=== PATIENT | female | born 1975 | race Caucasian/White ===

== ENCOUNTER 2016-06-05 22:44 | Inpatient (IN) | payer OTHER ==
--- NOTE | ~2016-06-05 | CN ---
Consultation Report [facility] [address] [place]. [address] NAME: RENETTA MANUEL : 71 STATUS : ADM IN [facility]#: [id number] AGE: 41 ADM/REG DATE : 06/06/16 MR#: [id number] REPORT SERV DATE: 06/17/16 DICTATED BY: JB RUBIN DATE: 06/17/16 REPORT STATUS : Draft TRANSCRIBED BY: MODL DATE: 06/17/16 INFECTIONS DISEASE CONSULT DATE OF CONSULTATION: 06/17/2016 REASON FOR CONSULTATION: Neutropenic fever. HISTORY OF PRESENT ILLNESS: This is a 41-year-old female who was admitted to the hospital on 06/06 after presenting to the emergency department complaining of fevers. She had undergone extraction of 3 teeth back on 05/20 and developed postoperative pain and a dry socket condition. Then, she developed fevers. On initial assessment, she was found to be pancytopenic and had a fever up to 103. She underwent CT scan of the face, neck, chest, abdomen, and pelvis without any acute findings. 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 Her fevers resolved. She underwent standard induction chemotherapy. Yesterday, she had a low-grade fever of 100.3, and then since then has had higher fevers, up to 102.6 today. Yesterday, vancomycin was added to the cefepime. The patient also has completed, as part of her regimen, Decadron which ended a few days ago. The patient's chief complaints include aching all over, increasing pain in her left upper anterior maxilla. She also complains of some right flank pain and right lower quadrant discomfort and a fairly persistent diarrhea for some days now. Denies any cough. No significant headache. PAST MEDICAL HISTORY: The past medical history prior to this is notable for seizure disorder, severe dental caries, surgery for ovarian mass torsion with an oophorectomy and hysterectomy apparently complicated by MRSA wound infection. There is also a history of cholecystectomy. ALLERGIES: ERYTHROMYCIN. MEDICATIONS: Present medications in addition to the antibiotics mentioned include Benadryl, Depakote, iron Neurontin, Habitrol, nystatin oral suspension, Protonix, and MiraLAX. SOCIAL HISTORY: A long-term smoker but not a lot, nondrinker. Has lived in the [facility] all her life. She has pet dogs at home. No known contact with anybody with active tuberculosis. REVIEW OF SYSTEMS: As outlined above. In addition, she notes some irritation in her oral cavity and when swallowing, but it is not severe. No hemoptysis. No genitourinary symptoms. PHYSICAL EXAMINATION: VITAL SIGNS: Fevers as noted. Pulse 117, blood pressure 119/63, and respiratory rate 16. Consultation Report [address] [place]. [address] NAME: RENETTA MANUEL : 71 STATUS : ADM IN PAT#: [id number] AGE: 41 ADM/REG DATE : 06/06/16 MR#: [id number] REPORT SERV DATE: 06/17/16 DICTATED BY: JB RUBIN DATE: 06/17/16 REPORT STATUS : Draft TRANSCRIBED BY: RYAN DATE: 06/17/16 She weighs 99 kg. GENERAL: She is alert, pleasant, and in no acute distress. HEENT: Head and neck exam, extraocular movements intact. Conjunctivae normal. The oral cavity is clear, there is no thrush. She has very poor dentition and just a few remaining teeth. There is an area of mild soft tissue swelling and erythema above the diseased left upper incisors which is tender but not fluctuant. NECK: Supple. No significant adenopathy. LUNGS: Clear to auscultation. CARDIAC: Regular rate and rhythm. Normal S1 and S2 without murmur, gallop, or rub. ABDOMEN: Active bowel sounds and is soft. She is tender to palpation in the right lower quadrant; this is mild, no rebound. BACK: Unremarkable. No CVA tenderness. EXTREMITIES: A PICC line in place which was placed 06/07, covered by dressing. No significant edema. SKIN: Without rash. LABORATORY STUDIES: White blood cell count 0.1, hemoglobin 6.8, platelet count 9000, creatinine 0.66, and lactate 0.9. Liver function tests on admission were normal. The admission rapid strep test and urinalysis were negative. One of three admission blood cultures grew a viridans strep. Repeat blood cultures yesterday are negative to date. IMAGING STUDIES: As noted. No imaging studies since 06/06. IMPRESSION: Neutropenic fever in a patient with AML, status post induction chemotherapy. I think there is some concern here for the possibility of a smoldering odontogenic infection associated with her dental caries, particularly in the area of the upper left incisors. I do not appreciate signs of an abscess on exam, although she is neutropenic. The patient also has very persistent diarrhea, and we need to consider the possibility of C. diff. In addition, she has this mild tenderness in her right lower quadrant and her right flank, among the many possibilities, would be neutropenic enterocolitis. She did have a CT scan of the abdomen and pelvis on admission. PLAN: 1. We will change the cefepime to Zosyn. 2. We will continue vancomycin. 3. We will check a C. diff. 4. Check a chest x-ray. 5. If no improvement, I would repeat a CT scan of the abdomen and pelvis and ask Oral Surgery to reassess also. CHARLES/RYAN Jb Rubin, Consultation Report [address] [address] NAME: RENETTA MANUEL : 71 STATUS : ADM IN [facility]#: [id number] AGE: 41 ADM/REG DATE : 06/06/16 MR#: [id number] REPORT SERV DATE: 06/17/16 DICTATED BY: JB RUBIN DATE: 06/17/16 REPORT STATUS : Draft TRANSCRIBED BY: RYAN DATE: 06/17/16 Gini / [id number]
--- NOTE | ~2016-06-05 | DS ---
Discharge Summary [facility] [address] [place]. [address] NAME: RENETTA BAI : 71 STATUS : DIS IN PAT#: [id number] AGE: 41 ADM/REG DATE : 06/06/16 MR#: [id number] REPORT SERV DATE: 08/30/16 DICTATED BY: ROSY BULLOCK MARK SANDERS DATE: 08/29/16 REPORT STATUS : Draft TRANSCRIBED BY: RYAN DATE: 08/29/16 ADMISSION DATE: 06/06/2016 DISCHARGE DATE: 08/07/2016 HOSPITAL COURSE: Ms Bai is a 41-year-old white female with a history of seizure disorder who was admitted on 06/06/2016 with fevers to 103. She had reported pain in her neck, jaw, and teeth. This was exacerbated by swallowing. She had teeth extractions on 05/20/2016 and had complained of an infected dry socket. She had been placed on antibiotics by her dentist. She also reported night sweats for one month prior to this. In the emergency room, her white count was 2800 with an ANC of 0. Her hemoglobin was 8.9 g, and platelets were 28,000. Her B12 was low at 94. Thorough review of her peripheral smear was concerning for acute leukemia. She had a bone marrow biopsy which did confirm this. She had induction chemotherapy with Alison-C, idarubicin and cladribine. Her day 14 bone marrow showed persistent disease and she was reinduced. A followup bone marrow prior to discharge was unclear if she had residual disease or not. During her hospital stay, it was complicated by persistent fevers and diarrhea. Additionally, she was noted to have a rash on her arm, and a biopsy revealed Rosa. She was treated with amphotericin initially and subsequently discharged on Diflucan. Prior to discharge as her counts began to recover, her fevers resolved. She was discharged home with home health for physical therapy and scheduled for twice weekly labs in my office and followup in approximately two to three weeks. We did discuss that it was unclear if her leukemia was persistent or not and that we would follow her blood work in order to help us better determine this. We also discussed the need for additional chemotherapy at a subsequent date. For additional information, please see her initial history and physical as well as other consultation reports. WAQAS/RYAN Emiliano Bullock IV, M.D. / [id number] CC: Emiliano Bullock IV, M.D.
--- NOTE | ~2016-06-05 | HP ---
History And Physical [place] [id number] [facility] [place]. [address] NAME: RENETTA BAI : 71 STATUS : ADM IN [facility]#: [id number] AGE: 41 ADM/REG DATE : 06/06/16 MR#: [id number] REPORT SERV DATE: 06/06/16 DICTATED BY: NOELLE CHARLES DATE: 06/06/16 REPORT STATUS : Draft TRANSCRIBED BY: MODVerona DATE: 06/06/16 DATE OF ADMISSION: 06/06/2016 POINT OF ENTRY: [facility] Emergency Department. PRIMARY CARE PHYSICIAN: [facility]. CHIEF COMPLAINT: Fevers. HISTORY OF PRESENT ILLNESS: Ms Bai is a 41-year-old female with history of seizure disorder, who presents to the emergency room today with a one-day history of fevers. The patient states that she was recently on some antibiotics for some dental caries. She underwent tooth extraction on 05/20/2016 of three teeth of the left mandibular region, since then, she has had troubles with an infected dry socket. Reportedly, the dentist has done some procedures afterwards to address the post-extraction difficulties. The patient was in our emergency department yesterday for feeling sick as well as pain. Workup at that time was reportedly unremarkable. She returned home and states that she started to develop fevers around midday on Friday as high as 103 degrees Fahrenheit, as well as pain and abnormal smell in her sinuses with associated left-sided neck and jaw pain. The patient also states some night sweats for the past month, but denies any recent weight loss or weight gain, troubles with chest pain, palpitations, shortness of breath, cough, sputum production, abdominal pain, vomiting, diarrhea, constipation, dysuria, melena, hematochezia, hemoptysis, or hematemesis. Does report some nausea associated with the abnormal olfactory sensation and pain in her sinus region. Comprehensive review of systems otherwise negative unless listed in history of present illness. Initial evaluation in the emergency department was notable for a temperature initially of 100.7, on recheck it was 103 degrees Fahrenheit. Labs are notable for pancytopenia with absolute neutropenia. Extensive search for source of infection was unremarkable with negative urinalysis, strep, flu swab, chest x-ray as well as CT scan of the chest, face and neck. She was subsequently admitted to the Hospitalist Service for further evaluation and management. The patient denies any recent new medications other than the Augmentin in early May. Denies any troubles with hematologic abnormalities in the past. PRESENT MEDICAL HISTORY: 1. Seizure disorder. 2. Dental caries. 3. Remote history of ovarian torsion status post oophorectomy. 4. Active tobacco abuse. SURGICAL HISTORY: History And Physical [address] [address] NAME: RENETTA BAI : 71 STATUS : ADM IN [facility]#: [id number] AGE: 41 ADM/REG DATE : 06/06/16 MR#: [id number] REPORT SERV DATE: 06/06/16 DICTATED BY: NOELLE CHARLES DATE: 06/06/16 REPORT STATUS : Draft TRANSCRIBED BY: RYAN DATE: 06/06/16 1. Cholecystectomy. 2. Partial hysterectomy. 3. Single oophorectomy. ALLERGIES: ERYTHROMYCIN. HOME MEDICATIONS: 1. Diphenhydramine 25 mg q.h.s. 2. Depakote 500 mg b.i.d. 3. Gabapentin 300 mg b.i.d. 4. Zantac 75 mg b.i.d. p.r.n. SOCIAL HISTORY: She does smoke a few cigarettes a day. Denies any alcohol. Denies any illicits. OCCUPATION: She stays home and takes care of her grand kids. FAMILY MEDICAL HISTORY: Mother with coronary artery disease. Father is healthy. Siblings with diabetes. Does report extended family history of cancer, but the details are unknown. LABS AND IMAGIN. White count is 2.8, hemoglobin is 8.9, hematocrit is 25.1, and platelet count is 28. INR is 1.1. ANC is 0, on the preliminary differential it is 99% lymphocytes with a normal absolute lymphocyte count, but approximately 50% of lymphocytes are abnormal appearing consistent with immature forms and/or blasts, this is yet to be confirmed by pathology. 2. Sodium is 140, potassium 3.6, chloride 107, carbon dioxide 23, BUN 7, creatinine 0.77, glucose is 95, calcium 7.8, protein 7.0, albumin is 3.2, bilirubin is 0.3, AST is 13, ALT is 14, alkaline phosphatase 68. 3. Troponin less than 0.02. 4. Lactic acid 0.9. 5. Urinalysis: Specific gravity is 1.012. No evidence of any infection. Her urine drug screen is positive for opiates and marijuana. 6. Chest x-ray per my review shows no acute cardiopulmonary abnormality. 7. CT scan of the face and neck with IV contrast showed some borderline enlarged lymph nodes, but otherwise no evidence of any sinusitis, abscess, or odontogenic infection. 8. CT scan of the chest with IV contrast shows no acute pulmonary abnormality, no evidence of any lymphadenopathy. Does show mildly enlarged 10 mm common bile duct status post cholecystectomy. PHYSICAL EXAMINATION: VITAL SIGNS: Temperature is 100.7 degrees Fahrenheit, pulse is 115, respirations 22, saturating 98% on room air, and blood pressure 130/89. On recheck, T-max was 103 degrees Fahrenheit. Most recent vital signs shows a temperature of 101.1 degrees Fahrenheit with a pulse of 118, blood pressure 113/67. GENERAL: The patient is awake, alert, and in no acute distress. Resting comfortably. She is a well-developed, well-nourished, female. History And Physical [address] [address] NAME: RENETTA BAI : 71 STATUS : ADM IN [facility]#: [id number] AGE: 41 ADM/REG DATE : 06/06/16 MR#: [id number] REPORT SERV DATE: 06/06/16 DICTATED BY: NOELLE CHARLES DATE: 06/06/16 REPORT STATUS : Draft TRANSCRIBED BY: RYAN DATE: 06/06/16 HEENT: Atraumatic and normocephalic. Moist mucous membranes. Pupils are equal, round, reactive to light and accommodation. Extraocular eye movements intact. The patient has very poor oral dentition and is actually missing most of her teeth. She is tender to palpation over the left greater than right maxillary sinus. NECK: No jugular venous distention. No carotid bruits. There is no evidence of any obvious swelling or lymphadenopathy; however, is tender on palpation left greater than right lateral neck. CARDIAC: Tachycardic rate, regular rhythm. No murmurs, rubs, or gallops. Normal S1, S2. LUNGS: Clear to auscultation bilaterally. No wheezes, rhonchi, or crackles. ABDOMEN: Soft, nontender, and nondistended. Good bowel sounds. No rebound, guarding, or rigidity. I did not appreciate any hepatosplenomegaly on palpation. SKIN: Warm and dry. PSYCH: Affect appropriate. NEURO: Alert and oriented x3. Cranial nerves 2 through 12 grossly intact. Speech is normal. Gait not assessed. ASSESSMENT/PLAN: Ms Bai is a 41-year-old female, who presents with a one-day history of high-grade fevers as well as facial and neck pain, and found to have evidence of systemic inflammatory response as well as neutropenic fever with a markedly abnormal CBC. PROBLEM LIST: 1. Systemic inflammatory response. 2. Neutropenic fever. 3. 4. Pancytopenia. 5. Abnormal lymphocytes on peripheral smear. 6. Facial and neck pain. 7. History of seizure disorder. PLAN: 1. Systemic inflammatory response. Source of fevers is unclear at this time. Given her markedly abnormal CBC this may be malignancy related. Search for infectious etiology has thus far been unremarkable. We will complete with following up blood cultures, checking a procalcitonin as well as CT scan of the abdomen and pelvis. Given evidence of neutropenic fever we will empirically place the patient on broad-spectrum IV antibiotics. 2. Neutropenic fever. We will place the patient on neutropenic precautions. Place the patient on IV vancomycin and cefepime. Follow up blood cultures. Also checking a CT scan of the abdomen and pelvis for further search for source of fever. 3. Pancytopenia with abnormal peripheral smear, unclear etiology at this time. She denies any history of HIV, liver disease, alcohol abuse. The only recent new medication was some Augmentin a few weeks ago. We will check HIV, hepatitis viral panel, LDH, ESR, CRP, reticulocyte count as well as iron studies and vitamin B12 and folate. We will follow up final pathology review of the peripheral smear as well as consult Hematology for assistance and checking a CT of the abdomen and pelvis to assess for any potential hepatosplenomegaly and/or lymphadenopathy that may shed light on source of the patient's abnormal Hematology labs. History And Physical [address] [place]. [address] NAME: RENETTA BAI : 71 STATUS : ADM IN [facility]#: [id number] AGE: 41 ADM/REG DATE : 06/06/16 MR#: [id number] REPORT SERV DATE: 06/06/16 DICTATED BY: NOELLE CHARLES DATE: 06/06/16 REPORT STATUS : Draft TRANSCRIBED BY: MODL DATE: 06/06/16 4. Seizure disorder. Continue the patient's home medications. Per cursory review of [place], I do not appreciate any obvious hematologic adverse affects of both Neurontin and Depakote. 5. DVT prophylaxis. Hugh's and SCDs given profound thrombocytopenia. CODE STATUS: The patient wished to be full code. JCB/RYAN Noelle Charles MD / [id number] CC: Antione Hughes MD
--- NOTE | ~2016-06-05 | CN ---
Consultation Report [facility] [address] [place]. [address] NAME: RENETTA BAI : 71 STATUS : ADM IN [facility]#: [id number] AGE: 41 ADM/REG DATE : 06/06/16 MR#: [id number] REPORT SERV DATE: 06/06/16 DICTATED BY: ROSY BULLOCK MARK SANDERS DATE: 06/06/16 REPORT STATUS : Draft TRANSCRIBED BY: RYAN DATE: 06/06/16 CONSULTATION NOTE DATE OF CONSULTATION: 06/06/2016 REASON FOR CONSULTATION: Pancytopenia. CLINICIAN REQUESTING CONSULTATION: Dr. Antione Hughes. CHIEF COMPLAINT: Pain with swallowing and fevers. HISTORY OF PRESENT ILLNESS: Ms. Bai is a 41-year-old white female with a history of seizure disorders, who was admitted with fevers to 103. She has also been having pain in her neck, jaw, and was swallowing. She had a tooth extraction on 05/20/2016 and has had problems with an infected dry socket. She has been on antibiotics per the dentist. She has also reported some night sweats over approximately the last month. She has not had changes in her weight or enlarged lymph nodes. She denies any bleeding or easy bruising. No blood in her stool or dark stool. No nausea, vomiting, diarrhea, or dysuria. In the ER, she was noted to have a white count of 2800 with an ANC of zero. Hemoglobin is 8.9 g. Platelets were 28,000. Her B12 level was found to be low at 94. Folate was 15.6. Ferritin is 124. Iron was 32. Procalcitonin was 0.07. She has seizure disorder and takes Depakote. PAST MEDICAL HISTORY: 1. Seizure disorder. 2. Dental caries with multiple infected teeth. ALLERGIES: ERYTHROMYCIN. HOME MEDICATIONS: 1. Benadryl p.r.n. 2. Depakote 500 mg b.i.d. 3. Neurontin 300 mg b.i.d. 4. Zantac 75 mg b.i.d. SOCIAL HISTORY: She is a smoker. She does not use alcohol. She is seen at the [facility]. FAMILY HISTORY: Not significant for any blood disorders. REVIEW OF SYSTEMS: 12-point review of systems negative except as per HPI. PHYSICAL EXAMINATION: VITAL SIGNS: Blood pressure 131/58, pulse 98, temperature 97.7, T-max 103,0. Consultation Report [place] [id number] [facility] [place]. [address] NAME: RENETTA BAI : 71 STATUS : ADM IN [facility]#: [id number] AGE: 41 ADM/REG DATE : 06/06/16 MR#: [id number] REPORT SERV DATE: 06/06/16 DICTATED BY: ROSY BULLOCK MARK SANDERS DATE: 06/06/16 REPORT STATUS : Draft TRANSCRIBED BY: RYAN DATE: 06/06/16 GENERAL APPEARANCE: Well developed, well nourished, no acute distress. HEENT: Multiple diseased teeth. She has had multiple extractions as well. NECK: Supple. No lymphadenopathy. CARDIOVASCULAR: Regular rate and rhythm. Normal S1, S2. LUNGS: Clear to auscultation bilaterally. Fair effort. ABDOMEN: Soft, nontender. No organomegaly. EXTREMITIES: No clubbing, cyanosis, edema. LABORATORY DATA: White count 2800, hemoglobin 8.9 g, platelets 28,000. Creatinine 0.77, albumin 3.2. Procalcitonin 0.06, sedimentation rate 86, procalcitonin 0.07, LDH 475. Iron 32, ferritin 124, vitamin B12 94, TSH 1.980. CTs of chest, neck and face in the emergency department are personally reviewed and fairly unremarkable. ASSESSMENT/PLAN: 1. Ms. Bai is a 41-year-old white female, admitted with fevers, pain with swallowing, and profound neutropenia, anemia, and severe thrombocytopenia. As noted, her B12 level was very low. I have discussed this with the patient. We will go ahead and start B12 injections today. We also discussed the potential need for a bone marrow biopsy. I will go ahead and review her peripheral smear first. She is very anxious about a bone marrow biopsy. 2. Neutropenic fever. She is currently on cefepime and I would recommend continuing this. We will await any culture data. Pain with swallowing. I would recommend adding some nystatin, she get some underlying thrush with her immunosuppression. Thank you for the consultation. We will continue to follow. WAQAS/RYAN Emiliano Bullock IV, M.D. / [id number] CC: Antione Hughes MD
--- NOTE | ~2016-06-05 | OP ---
Record Of Operation [facility] [address] [place]. [address] NAME: RENETTA MANUEL : 71 STATUS : DIS IN PAT#: [id number] AGE: 41 ADM/REG DATE : 06/06/16 MR#: [id number] REPORT SERV DATE: 10/14/16 DICTATED BY: MINA SHI JR. DATE: 07/15/16 REPORT STATUS : Draft TRANSCRIBED BY: RYAN DATE: 07/15/16 DATE OF PROCEDURE: 07/15/2016 SURGEON: Mina Shi M.D. PROCEDURE: Biopsy of skin lesion of right forearm. PREOPERATIVE DIAGNOSIS: Indeterminate lesion, right forearm. POSTOPERATIVE DIAGNOSIS: Indeterminate lesion, right forearm. ANESTHESIA: Local. DESCRIPTION OF PROCEDURE: The area was prepped with Betadine with 1% lidocaine. A 2 mm and 4 mm punch biopsy was obtained, full-thickness specimens were submitted to microbiology for cultures including aerobic, anaerobic, AFB and fungal cultures and also a full-thickness punch to Pathology for histology. Bleeding was controlled with pressure. She tolerated it well. HEATH/RYAN Mina Shi Jr., M.D. / [id number] CC: Emiliano Alberto IV, M.D.
[2016-06-05 22:04] LABS: WBC (NOT ORDERED) (RFLEX) 0 (0-5)
[2016-06-05 22:10] LABS: BASOPHILS 0 %; EOSINOPHILS 0.7 %; EOSINOPHILS ABSOLUTE 0.02 10/3/uL (0.0-0.53); LYMPHOCYTES 87.4 %; LYMPHOCYTES ABSOLUTE 2.42 10/3/uL (0.67-4.30); MEAN PLATELET VOLUME 8.6 fL (9.2-13.0); MONOCYTES 11.6 %; MONOCYTES ABSOLUTE 0.32 10/3/uL (0.21-1.20); NEUTROPHILS 0 %
[2016-06-05 22:15] LABS: ER CBC TAT 0 Hrs 13 Mins; HEMATOCRIT 25.1 % (36.0-48.0); HEMOGLOBIN 8.9 g/dL (12.0-16.0); MEAN CORPUS HGB CONC 35.5 g/dL (32.0-36.0); MEAN CORPUSCULAR HEMOGLOB 33.5 pg (26.0-34.0); MEAN CORPUSCULAR VOLUME 94.4 fL (80-100); PLATELET COUNT 28 10/3/uL (150-400); RBC DISTRIBUTION WIDTH 14.7 % (12.0-16.0); RED CELL COUNT 2.66 10/6/uL (4.0-5.6); WHITE BLOOD CELLS 2.8 10/3/uL (4.5-10.5)
[2016-06-05 22:16] LABS: ASCORBIC ACID (UR NOT ORDER) NEG (NEG); BILIRUBIN, URINE NEGATIVE (NEG); ER URINALYSIS TAT 0 Hrs 14 Mins; KETONE, URINE NEGATIVE (NEG); LEUKOCYTE ESTERASE(NOT OR NEG (NEG); NITRITE (URINE) NEG (NEG)
[2016-06-05 22:17] LABS: MANUAL DIFF NO %
[2016-06-05 22:22] LABS: INFLUENZA A SCREEN NEGATIVE (NEGATIVE); INFLUENZA B SCREEN NEGATIVE (NEGATIVE)
[2016-06-05 22:26] LABS: INTERNATIONAL NORMAL RATI 1.1 UNITS (-); PARTIAL THROMBO TIME 34.1 SEC (22.5-37.2); PROTIME (NOT ORD) 14.4 SEC (12.0-14.5)
[2016-06-05 22:27] LABS: A/G RATIO 0.8 (0.7-1.9); ALBUMIN 3.2 G/DL (3.5-5.0); ALKALINE PHOSPHATASE 68 U/L (45-117); BUN (BLOOD UREA NITROGEN) 7 MG/DL (6-23); CHLORIDE, SERUM 107 MMOL/L (96-112); CO2 (CARBON DIOXIDE) 23 MMOL/L (24-34); CREATININE 0.77 MG/DL (0.55-1.02); GFR AFRICAN AMERICAN 110 ML/MIN (>=60); GFR NON AFRICAN AMERICAN 95 ML/MIN (>=60); GLOBULIN 3.8 G/DL (2.5-4.1); GLUCOSE, SERUM 95 MG/DL (60-99); POTASSIUM, SERUM 3.6 MMOL/L (3.5-5.3); SGOT(AST) 14 U/L (5-40); SGPT(ALT) 13 U/L (5-65); SODIUM, SERUM 140 MMOL/L (135-148); TOTAL BILIRUBIN 0.3 MG/DL (0-1.2); TROPONIN I <0.02 NG/ML (<0.05)
[2016-06-05 22:28] LABS: CALCIUM, SERUM 7.8 MG/DL (8.5-10.4); DEPAKENE (VALPROIC ACID) < 3.0 MCG/ML (50.0-100.0)
[2016-06-05 22:28] LABS: AMPHETAMINES (NOT ORD) NEG (NEG); BARBITURATES (NOT ORDERED NEG (NEG); BENZODIAZEPINES (NOT ORD) NEG (NEG); CANNABINOIDS (THC) POS (NEG); COCAINE (NOT ORDERED) NEG (NEG); OPIATES POS (NEG); PHENCYCLIDINE(PCP) NEG (NEG); TRICYCLICS NEG (NEG)
[~2016-06-05 22:44] MED LIST: ACET500CAP PO; AMB10 PO; ASA5GR PO; CLARIT10 PO; KEPPRA500 PO; KLONO2 PO; LYRICA75 PO; REST15 PO
[2016-06-05 22:49] LABS: BASOPHILS 1 %; BASOPHILS ABSOLUTE (CALC) 0.03 10/3/uL (0.0-0.16); ER DIFF TAT 0 Hrs 47 Mins; LYMPHOCYTES ABSOLUTE (CALC) 2.77 10/3/uL (0.67-4.30); TOTAL NUCLEATED CELLS 100
[2016-06-05 22:53] LABS: LYMPHOCYTES 99 %
[2016-06-05 22:54] LABS: RBC MORPHOLOGY NORM (NORMAL)
[2016-06-05 22:56] LABS: PATH REVIEW YES
[2016-06-05 23:03] LABS: PROCALCITONIN 0.06 ng/mL (<0.5)
[2016-06-05] MEDS ORDERED: ZANTAC 75 PO (23:51)
[2016-06-05] MEDS ORDERED: NEUR300 PO (23:51)
[2016-06-05] MEDS ORDERED: DEPAKOT500 PO (23:51)
[2016-06-05] MEDS ORDERED: BEN25 PO (23:52)
[2016-06-06 05:22] LABS: FREE T4 1.14 NG/DL (0.76-1.46)
[2016-06-06 05:24] LABS: FOLATE 15.6 NG/ML (>5.2); ULTRASENSITIVE TSH 1.98 MCIU/ML (0.358-3.740)
[2016-06-06 07:14] LABS: PROCALCITONIN 0.07 ng/mL (<0.5)
[2016-06-06 09:08] LABS: RETICULOCYTE COUNT 2.1 % (0.5-2.9); RETICULOCYTE COUNT ABSOLUTE 55.1 10/3/uL (20.2-119.8)
[2016-06-06 10:48] LABS: CREATININE, URINE 64.4 MG/DL
[2016-06-06 11:22] LABS: HEPATITIS C ANTIBODY NON-REACTIVE (NON-REACT)
[2016-06-06 11:23] LABS: HEPATITIS B CORE AB IGM NON-REACTIVE (NON-REAC)
[2016-06-06 11:24] LABS: HEP A ANTIBODY IGM NON-REACTIVE (NON-REACT); HIV COMBO NON-REACTIVE (NON REAC)
[2016-06-06 11:38] LABS: HEPATITIS B SURFACE ANTIGEN NON-REACTIVE (NON-REACT)
[2016-06-06 11:47] LABS: HEMATOCRIT 23.1 % (36.0-48.0); MEAN CORPUS HGB CONC 34.6 g/dL (32.0-36.0); MEAN CORPUSCULAR HEMOGLOB 33.2 pg (26.0-34.0); MEAN CORPUSCULAR VOLUME 95.9 fL (80-100); MEAN PLATELET VOLUME 8.3 fL (9.2-13.0); RBC DISTRIBUTION WIDTH 14.9 % (12.0-16.0); RED CELL COUNT 2.41 10/6/uL (4.0-5.6); WHITE BLOOD CELLS 2.5 10/3/uL (4.5-10.5)
[2016-06-06 11:49] LABS: PLATELET COUNT 29 10/3/uL (150-400)
[2016-06-06 11:50] LABS: MANUAL DIFF YES %
[2016-06-06 11:55] LABS: BUN (BLOOD UREA NITROGEN) 5 MG/DL (6-23); CALCIUM, SERUM 7.8 MG/DL (8.5-10.4); CHLORIDE, SERUM 110 MMOL/L (96-112); CO2 (CARBON DIOXIDE) 24 MMOL/L (24-34); GFR AFRICAN AMERICAN 105 ML/MIN (>=60); GFR NON AFRICAN AMERICAN 90 ML/MIN (>=60); GLUCOSE, SERUM 113 MG/DL (60-99); POTASSIUM, SERUM 3.7 MMOL/L (3.5-5.3); SODIUM, SERUM 143 MMOL/L (135-148)
[2016-06-06 13:00] LABS: ATYPICAL LYMPH MANY (>10%) (0-5%); BLASTS 44 % (0); LYMPHOCYTES 52 %; MONOCYTES 1 %; MONOCYTES ABSOLUTE (CALC) 0.03 10/3/uL (0.21-1.20); NEUTROPHILS ABSOLUTE (CALC) 0.08 10/3/uL (2.02-8.40); RBC MORPHOLOGY NORM (NORMAL); SEGMENTED NEUTROPHIL (0) 3 %; TOTAL NUCLEATED CELLS 100
[2016-06-07 10:18] LABS: HEMOGLOBIN 7.3 g/dL (12.0-16.0); MEAN CORPUS HGB CONC 35.1 g/dL (32.0-36.0); MEAN CORPUSCULAR VOLUME 96.7 fL (80-100); MEAN PLATELET VOLUME 8.3 fL (9.2-13.0); RBC DISTRIBUTION WIDTH 14.7 % (12.0-16.0); RED CELL COUNT 2.15 10/6/uL (4.0-5.6)
[2016-06-07 10:19] LABS: HEMATOCRIT 20.8 % (36.0-48.0); PLATELET COUNT 21 10/3/uL (150-400); WHITE BLOOD CELLS 2.3 10/3/uL (4.5-10.5)
[2016-06-07 10:20] LABS: MANUAL DIFF YES %
[2016-06-07 10:28] LABS: BUN (BLOOD UREA NITROGEN) 6 MG/DL (6-23); CALCIUM, SERUM 7.8 MG/DL (8.5-10.4); CHLORIDE, SERUM 109 MMOL/L (96-112); CO2 (CARBON DIOXIDE) 26 MMOL/L (24-34); CREATININE 0.62 MG/DL (0.55-1.02); GFR AFRICAN AMERICAN 128 ML/MIN (>=60); GFR NON AFRICAN AMERICAN 110 ML/MIN (>=60); GLUCOSE, SERUM 110 MG/DL (60-99); PHOSPHORUS, SERUM 2.9 MG/DL (2.5-4.5); POTASSIUM, SERUM 3.7 MMOL/L (3.5-5.3); SODIUM, SERUM 143 MMOL/L (135-148)
[2016-06-07 10:48] LABS: BASOPHILS 1 %; BASOPHILS ABSOLUTE (CALC) 0.02 10/3/uL (0.0-0.16); BLASTS 33 % (0); LYMPHOCYTES 66 %; LYMPHOCYTES ABSOLUTE (CALC) 1.52 10/3/uL (0.67-4.30); TOTAL NUCLEATED CELLS 100
[2016-06-07 10:49] LABS: POLYCHROMASIA 1+ (2-5/OIF) (0-1/OIF)
[2016-06-08 06:13] LABS: HEMATOCRIT 21.2 % (36.0-48.0); HEMOGLOBIN 7.3 g/dL (12.0-16.0); MEAN CORPUS HGB CONC 34.4 g/dL (32.0-36.0); MEAN CORPUSCULAR HEMOGLOB 33.3 pg (26.0-34.0); MEAN CORPUSCULAR VOLUME 96.8 fL (80-100); MEAN PLATELET VOLUME 8.3 fL (9.2-13.0); PLATELET COUNT 25 10/3/uL (150-400); RBC DISTRIBUTION WIDTH 15.2 % (12.0-16.0); RED CELL COUNT 2.19 10/6/uL (4.0-5.6); WHITE BLOOD CELLS 2.1 10/3/uL (4.5-10.5)
[2016-06-08 06:14] LABS: MANUAL DIFF YES %
[2016-06-08 06:25] LABS: BUN (BLOOD UREA NITROGEN) 8 MG/DL (6-23); CALCIUM, SERUM 7.9 MG/DL (8.5-10.4); CHLORIDE, SERUM 110 MMOL/L (96-112); CO2 (CARBON DIOXIDE) 25 MMOL/L (24-34); CREATININE 0.61 MG/DL (0.55-1.02); GFR AFRICAN AMERICAN 129 ML/MIN (>=60); GFR NON AFRICAN AMERICAN 111 ML/MIN (>=60); GLUCOSE, SERUM 114 MG/DL (60-99); POTASSIUM, SERUM 3.6 MMOL/L (3.5-5.3); SODIUM, SERUM 144 MMOL/L (135-148)
[2016-06-08 06:29] LABS: PHOSPHORUS, SERUM 3.8 MG/DL (2.5-4.5)
[2016-06-08 06:49] LABS: ANISOCYTOSIS 1+ (5-10/OIF) (0-5/OIF); BLASTS 27 % (0); IMMATURE GRANS ABSOLUTE (CALC) 0.02 10/3/uL (0.0-0.11); LYMPHOCYTES 67 %; LYMPHOCYTES ABSOLUTE (CALC) 1.41 10/3/uL (0.67-4.30); MONOCYTES 5 %; MONOCYTES ABSOLUTE (CALC) 0.11 10/3/uL (0.21-1.20); MYELOCYTES 1 %; TOTAL NUCLEATED CELLS 100
[2016-06-08 06:50] LABS: POLYCHROMASIA 1+ (2-5/OIF) (0-1/OIF)
[2016-06-09 06:09] LABS: HEMATOCRIT 21.5 % (36.0-48.0); HEMOGLOBIN 7.5 g/dL (12.0-16.0); MEAN CORPUS HGB CONC 34.9 g/dL (32.0-36.0); MEAN CORPUSCULAR HEMOGLOB 33.3 pg (26.0-34.0); MEAN CORPUSCULAR VOLUME 95.6 fL (80-100); MEAN PLATELET VOLUME 8.6 fL (9.2-13.0); RBC DISTRIBUTION WIDTH 14.7 % (12.0-16.0); RED CELL COUNT 2.25 10/6/uL (4.0-5.6)
[2016-06-09 06:11] LABS: MANUAL DIFF YES %; PLATELET COUNT 22 10/3/uL (150-400); WHITE BLOOD CELLS 0.8 10/3/uL (4.5-10.5)
[2016-06-09 06:29] LABS: CALCIUM, SERUM 8.4 MG/DL (8.5-10.4); CHLORIDE, SERUM 110 MMOL/L (96-112); CO2 (CARBON DIOXIDE) 24 MMOL/L (24-34); CREATININE 0.62 MG/DL (0.55-1.02); GFR AFRICAN AMERICAN 128 ML/MIN (>=60); GFR NON AFRICAN AMERICAN 110 ML/MIN (>=60); GLUCOSE, SERUM 125 MG/DL (60-99); PHOSPHORUS, SERUM 4.4 MG/DL (2.5-4.5); SODIUM, SERUM 145 MMOL/L (135-148)
[2016-06-09 06:30] LABS: BUN (BLOOD UREA NITROGEN) 12 MG/DL (6-23); POTASSIUM, SERUM 4.5 MMOL/L (3.5-5.3)
[2016-06-09 06:43] LABS: LYMPHOCYTES 100 %; RBC MORPHOLOGY NORM (NORMAL); TOTAL NUCLEATED CELLS 5
[2016-06-10 06:11] LABS: HEMOGLOBIN 7.2 g/dL (12.0-16.0); MEAN CORPUS HGB CONC 34.3 g/dL (32.0-36.0); MEAN CORPUSCULAR HEMOGLOB 33.2 pg (26.0-34.0); MEAN CORPUSCULAR VOLUME 96.8 fL (80-100); MEAN PLATELET VOLUME 8.7 fL (9.2-13.0); RBC DISTRIBUTION WIDTH 14.7 % (12.0-16.0); RED CELL COUNT 2.17 10/6/uL (4.0-5.6)
[2016-06-10 06:17] LABS: BUN (BLOOD UREA NITROGEN) 11 MG/DL (6-23); CALCIUM, SERUM 8.2 MG/DL (8.5-10.4); CHLORIDE, SERUM 107 MMOL/L (96-112); CO2 (CARBON DIOXIDE) 26 MMOL/L (24-34); CREATININE 0.59 MG/DL (0.55-1.02); GFR AFRICAN AMERICAN 130 ML/MIN (>=60); GFR NON AFRICAN AMERICAN 112 ML/MIN (>=60); GLUCOSE, SERUM 99 MG/DL (60-99); PHOSPHORUS, SERUM 4.9 MG/DL (2.5-4.5); POTASSIUM, SERUM 4.8 MMOL/L (3.5-5.3); SODIUM, SERUM 144 MMOL/L (135-148)
[2016-06-10 06:20] LABS: PLATELET COUNT 18 10/3/uL (150-400)
[2016-06-10 06:21] LABS: MANUAL DIFF YES %
[2016-06-10 07:00] LABS: BLASTS 30 % (0); LYMPHOCYTES 70 %; TOTAL NUCLEATED CELLS 20
[2016-06-10 07:02] LABS: POLYCHROMASIA 1+ (2-5/OIF) (0-1/OIF)
[2016-06-11 06:53] LABS: HEMOGLOBIN 8.3 g/dL (12.0-16.0); MANUAL DIFF YES %; MEAN CORPUS HGB CONC 34.6 g/dL (32.0-36.0); MEAN CORPUSCULAR HEMOGLOB 33.5 pg (26.0-34.0); MEAN CORPUSCULAR VOLUME 96.8 fL (80-100); MEAN PLATELET VOLUME 9.9 fL (9.2-13.0); PLATELET COUNT 48 10/3/uL (150-400); RBC DISTRIBUTION WIDTH 14.2 % (12.0-16.0); RED CELL COUNT 2.48 10/6/uL (4.0-5.6); WHITE BLOOD CELLS 0.4 10/3/uL (4.5-10.5)
[2016-06-11 07:07] LABS: CALCIUM, SERUM 8.6 MG/DL (8.5-10.4); CHLORIDE, SERUM 102 MMOL/L (96-112); CO2 (CARBON DIOXIDE) 28 MMOL/L (24-34); CREATININE 0.64 MG/DL (0.55-1.02); GFR AFRICAN AMERICAN 127 ML/MIN (>=60); GFR NON AFRICAN AMERICAN 109 ML/MIN (>=60); PHOSPHORUS, SERUM 4.6 MG/DL (2.5-4.5); POTASSIUM, SERUM 4.2 MMOL/L (3.5-5.3); SODIUM, SERUM 139 MMOL/L (135-148)
[2016-06-11 07:08] LABS: BUN (BLOOD UREA NITROGEN) 17 MG/DL (6-23); GLUCOSE, SERUM 138 MG/DL (60-99)
[2016-06-11 07:22] LABS: BLASTS 32 % (0); LYMPHOCYTES 68 %; LYMPHOCYTES ABSOLUTE (CALC) 0.27 10/3/uL (0.67-4.30); TOTAL NUCLEATED CELLS 25
[2016-06-11 07:24] LABS: RBC MORPHOLOGY NORM (NORMAL)
[2016-06-12 07:26] LABS: HEMATOCRIT 21.6 % (36.0-48.0); HEMOGLOBIN 7.6 g/dL (12.0-16.0); MEAN CORPUS HGB CONC 35.2 g/dL (32.0-36.0); MEAN CORPUSCULAR HEMOGLOB 34.1 pg (26.0-34.0); MEAN CORPUSCULAR VOLUME 96.9 fL (80-100); MEAN PLATELET VOLUME 10.8 fL (9.2-13.0); RED CELL COUNT 2.23 10/6/uL (4.0-5.6)
[2016-06-12 07:29] LABS: MANUAL DIFF YES %; PLATELET COUNT 89 10/3/uL (150-400); WHITE BLOOD CELLS 0.3 10/3/uL (4.5-10.5)
[2016-06-12 07:36] LABS: BUN (BLOOD UREA NITROGEN) 18 MG/DL (6-23); CALCIUM, SERUM 8.4 MG/DL (8.5-10.4); CHLORIDE, SERUM 105 MMOL/L (96-112); CO2 (CARBON DIOXIDE) 27 MMOL/L (24-34); CREATININE 0.63 MG/DL (0.55-1.02); GFR AFRICAN AMERICAN 127 ML/MIN (>=60); GFR NON AFRICAN AMERICAN 110 ML/MIN (>=60); PHOSPHORUS, SERUM 4.5 MG/DL (2.5-4.5); POTASSIUM, SERUM 4.4 MMOL/L (3.5-5.3); SODIUM, SERUM 139 MMOL/L (135-148)
[2016-06-12 07:38] LABS: GLUCOSE, SERUM 110 MG/DL (60-99)
[2016-06-12 07:52] LABS: LYMPHOCYTES 100 %; PLATELET ESTIMATE DEC (ADEQUATE); TOTAL NUCLEATED CELLS 100
[2016-06-12 07:53] LABS: POLYCHROMASIA 1+ (2-5/OIF) (0-1/OIF)
[2016-06-13 05:49] LABS: HEMATOCRIT 21.1 % (36.0-48.0); HEMOGLOBIN 7.4 g/dL (12.0-16.0); MEAN CORPUS HGB CONC 35.1 g/dL (32.0-36.0); MEAN CORPUSCULAR HEMOGLOB 33.6 pg (26.0-34.0); MEAN CORPUSCULAR VOLUME 95.9 fL (80-100); MEAN PLATELET VOLUME 9.8 fL (9.2-13.0); RBC DISTRIBUTION WIDTH 13.5 % (12.0-16.0)
[2016-06-13 05:50] LABS: BUN (BLOOD UREA NITROGEN) 16 MG/DL (6-23); CALCIUM, SERUM 8.3 MG/DL (8.5-10.4); CHLORIDE, SERUM 106 MMOL/L (96-112); CO2 (CARBON DIOXIDE) 27 MMOL/L (24-34); CREATININE 0.59 MG/DL (0.55-1.02); GFR AFRICAN AMERICAN 130 ML/MIN (>=60); GFR NON AFRICAN AMERICAN 112 ML/MIN (>=60); GLUCOSE, SERUM 101 MG/DL (60-99); POTASSIUM, SERUM 4.9 MMOL/L (3.5-5.3); SODIUM, SERUM 141 MMOL/L (135-148)
[2016-06-13 06:03] LABS: PLATELET COUNT 46 10/3/uL (150-400); WHITE BLOOD CELLS 0.2 10/3/uL (4.5-10.5)
[2016-06-13 06:05] LABS: MANUAL DIFF YES %
[2016-06-13 06:48] LABS: LYMPHOCYTES 100 %; TOTAL NUCLEATED CELLS 100
[2016-06-13 06:49] LABS: RBC MORPHOLOGY NORM (NORMAL)
[2016-06-14 07:13] LABS: BUN (BLOOD UREA NITROGEN) 20 MG/DL (6-23); CALCIUM, SERUM 8.5 MG/DL (8.5-10.4); CHLORIDE, SERUM 107 MMOL/L (96-112); CO2 (CARBON DIOXIDE) 25 MMOL/L (24-34); CREATININE 0.68 MG/DL (0.55-1.02); GFR AFRICAN AMERICAN 124 ML/MIN (>=60); GFR NON AFRICAN AMERICAN 107 ML/MIN (>=60); GLUCOSE, SERUM 83 MG/DL (60-99); HEMATOCRIT 23.1 % (36.0-48.0); HEMOGLOBIN 8.1 g/dL (12.0-16.0); MEAN CORPUS HGB CONC 35.1 g/dL (32.0-36.0); MEAN CORPUSCULAR HEMOGLOB 33.8 pg (26.0-34.0); MEAN CORPUSCULAR VOLUME 96.3 fL (80-100); MEAN PLATELET VOLUME 9.9 fL (9.2-13.0); PHOSPHORUS, SERUM 3.5 MG/DL (2.5-4.5); POTASSIUM, SERUM 4.6 MMOL/L (3.5-5.3); RBC DISTRIBUTION WIDTH 13.3 % (12.0-16.0); SODIUM, SERUM 141 MMOL/L (135-148)
[2016-06-14 07:14] LABS: MANUAL DIFF YES %; PLATELET COUNT 41 10/3/uL (150-400); WHITE BLOOD CELLS 0.2 10/3/uL (4.5-10.5)
[2016-06-14 08:09] LABS: BASOPHILS 5 %; BASOPHILS ABSOLUTE (CALC) 0.01 10/3/uL (0.0-0.16); LYMPHOCYTES 95 %; LYMPHOCYTES ABSOLUTE (CALC) 0.19 10/3/uL (0.67-4.30); TOTAL NUCLEATED CELLS 20
[2016-06-14 08:10] LABS: RBC MORPHOLOGY NORM (NORMAL)
[2016-06-15 04:19] LABS: HEMOGLOBIN 7.1 g/dL (12.0-16.0); MEAN CORPUS HGB CONC 35.5 g/dL (32.0-36.0); MEAN CORPUSCULAR HEMOGLOB 33.6 pg (26.0-34.0); MEAN CORPUSCULAR VOLUME 94.8 fL (80-100); MEAN PLATELET VOLUME 9.9 fL (9.2-13.0); RBC DISTRIBUTION WIDTH 13.3 % (12.0-16.0); RED CELL COUNT 2.11 10/6/uL (4.0-5.6)
[2016-06-15 04:22] LABS: PLATELET COUNT 30 10/3/uL (150-400); WHITE BLOOD CELLS 0.1 10/3/uL (4.5-10.5)
[2016-06-15 04:23] LABS: MANUAL DIFF YES %
[2016-06-15 04:32] LABS: BUN (BLOOD UREA NITROGEN) 21 MG/DL (6-23); CALCIUM, SERUM 8.1 MG/DL (8.5-10.4); CHLORIDE, SERUM 106 MMOL/L (96-112); CO2 (CARBON DIOXIDE) 27 MMOL/L (24-34); CREATININE 0.66 MG/DL (0.55-1.02); GFR AFRICAN AMERICAN 125 ML/MIN (>=60); GFR NON AFRICAN AMERICAN 108 ML/MIN (>=60); GLUCOSE, SERUM 135 MG/DL (60-99); PHOSPHORUS, SERUM 4.1 MG/DL (2.5-4.5); SODIUM, SERUM 141 MMOL/L (135-148)
[2016-06-15 04:56] LABS: LYMPHOCYTES 100 %; TOTAL NUCLEATED CELLS 100
[2016-06-15 04:57] LABS: POLYCHROMASIA 1+ (2-5/OIF) (0-1/OIF)
[2016-06-16 04:33] LABS: MEAN CORPUS HGB CONC 34.8 g/dL (32.0-36.0); MEAN CORPUSCULAR HEMOGLOB 33.5 pg (26.0-34.0); MEAN CORPUSCULAR VOLUME 96.4 fL (80-100); MEAN PLATELET VOLUME 9.4 fL (9.2-13.0); RBC DISTRIBUTION WIDTH 13.4 % (12.0-16.0); RED CELL COUNT 1.94 10/6/uL (4.0-5.6)
[2016-06-16 04:35] LABS: HEMATOCRIT 18.7 % (36.0-48.0); HEMOGLOBIN 6.5 g/dL (12.0-16.0); PLATELET COUNT 19 10/3/uL (150-400); WHITE BLOOD CELLS 0.3 10/3/uL (4.5-10.5)
[2016-06-16 04:36] LABS: MANUAL DIFF YES %
[2016-06-16 04:44] LABS: BUN (BLOOD UREA NITROGEN) 20 MG/DL (6-23); CHLORIDE, SERUM 105 MMOL/L (96-112); CO2 (CARBON DIOXIDE) 27 MMOL/L (24-34); CREATININE 0.65 MG/DL (0.55-1.02); GFR AFRICAN AMERICAN 126 ML/MIN (>=60); GFR NON AFRICAN AMERICAN 109 ML/MIN (>=60); PHOSPHORUS, SERUM 4.2 MG/DL (2.5-4.5); POTASSIUM, SERUM 4.4 MMOL/L (3.5-5.3); SODIUM, SERUM 142 MMOL/L (135-148)
[2016-06-16 04:47] LABS: GLUCOSE, SERUM 90 MG/DL (60-99)
[2016-06-16 07:33] LABS: LYMPHOCYTES 100 %; RBC MORPHOLOGY NORM (NORMAL); TOTAL NUCLEATED CELLS 6
[2016-06-17 06:42] LABS: MEAN CORPUS HGB CONC 34.3 g/dL (32.0-36.0); MEAN CORPUSCULAR HEMOGLOB 32.1 pg (26.0-34.0); MEAN PLATELET VOLUME 10.7 fL (9.2-13.0); RED CELL COUNT 2.12 10/6/uL (4.0-5.6)
[2016-06-17 06:43] LABS: HEMATOCRIT 19.8 % (36.0-48.0); HEMOGLOBIN 6.8 g/dL (12.0-16.0); MEAN CORPUSCULAR VOLUME 93.4 fL (80-100); PLATELET COUNT 9 10/3/uL (150-400); WHITE BLOOD CELLS 0.1 10/3/uL (4.5-10.5)
[2016-06-17 06:44] LABS: MANUAL DIFF YES %
[2016-06-17 06:55] LABS: CALCIUM, SERUM 7.7 MG/DL (8.5-10.4); CHLORIDE, SERUM 104 MMOL/L (96-112); CO2 (CARBON DIOXIDE) 24 MMOL/L (24-34); CREATININE 0.66 MG/DL (0.55-1.02); GFR AFRICAN AMERICAN 125 ML/MIN (>=60); GFR NON AFRICAN AMERICAN 108 ML/MIN (>=60); POTASSIUM, SERUM 3.9 MMOL/L (3.5-5.3); SODIUM, SERUM 138 MMOL/L (135-148)
[2016-06-17 06:56] LABS: BUN (BLOOD UREA NITROGEN) 12 MG/DL (6-23); GLUCOSE, SERUM 126 MG/DL (60-99); PHOSPHORUS, SERUM 2.4 MG/DL (2.5-4.5)
[2016-06-17 07:16] LABS: LYMPHOCYTES 100 %; TOTAL NUCLEATED CELLS 100
[2016-06-17 07:18] LABS: RBC MORPHOLOGY NORM (NORMAL)
[2016-06-17 17:52] LABS: ASCORBIC ACID (UR NOT ORDER) NEG (NEG); BILIRUBIN, URINE NEGATIVE (NEG); KETONE, URINE NEGATIVE (NEG); LEUKOCYTE ESTERASE(NOT OR NEG (NEG); WBC (NOT ORDERED) (RFLEX) 1 (0-5)
[2016-06-18 05:13] LABS: HEMOGLOBIN 7.1 g/dL (12.0-16.0); MEAN CORPUS HGB CONC 35.3 g/dL (32.0-36.0); MEAN CORPUSCULAR HEMOGLOB 32.3 pg (26.0-34.0); MEAN CORPUSCULAR VOLUME 91.4 fL (80-100); MEAN PLATELET VOLUME 9.6 fL (9.2-13.0); RBC DISTRIBUTION WIDTH 14.2 % (12.0-16.0)
[2016-06-18 05:14] LABS: HEMATOCRIT 20.1 % (36.0-48.0); MANUAL DIFF YES %; PLATELET COUNT 31 10/3/uL (150-400); WHITE BLOOD CELLS 0.1 10/3/uL (4.5-10.5)
[2016-06-18 05:24] LABS: BUN (BLOOD UREA NITROGEN) 13 MG/DL (6-23); CALCIUM, SERUM 8.3 MG/DL (8.5-10.4); CHLORIDE, SERUM 101 MMOL/L (96-112); CO2 (CARBON DIOXIDE) 24 MMOL/L (24-34); CREATININE 0.73 MG/DL (0.55-1.02); GFR AFRICAN AMERICAN 117 ML/MIN (>=60); GFR NON AFRICAN AMERICAN 101 ML/MIN (>=60); GLUCOSE, SERUM 106 MG/DL (60-99); PHOSPHORUS, SERUM 2.4 MG/DL (2.5-4.5); POTASSIUM, SERUM 4.2 MMOL/L (3.5-5.3); SODIUM, SERUM 136 MMOL/L (135-148)
[2016-06-18 06:25] LABS: LYMPHOCYTES 100 %; TOTAL NUCLEATED CELLS 100
[2016-06-18 06:26] LABS: POLYCHROMASIA 1+ (2-5/OIF) (0-1/OIF)
[2016-06-19 07:04] LABS: MEAN CORPUS HGB CONC 34.8 g/dL (32.0-36.0); MEAN CORPUSCULAR HEMOGLOB 32.1 pg (26.0-34.0); MEAN CORPUSCULAR VOLUME 92.1 fL (80-100); MEAN PLATELET VOLUME 9.5 fL (9.2-13.0); RED CELL COUNT 2.15 10/6/uL (4.0-5.6)
[2016-06-19 07:08] LABS: HEMATOCRIT 19.8 % (36.0-48.0); HEMOGLOBIN 6.9 g/dL (12.0-16.0); PLATELET COUNT 20 10/3/uL (150-400); WHITE BLOOD CELLS 0.1 10/3/uL (4.5-10.5)
[2016-06-19 07:12] LABS: MANUAL DIFF YES %
[2016-06-19 07:26] LABS: LYMPHOCYTES 100 %; TOTAL NUCLEATED CELLS 100
[2016-06-19 07:29] LABS: POLYCHROMASIA 1+ (2-5/OIF) (0-1/OIF)
[2016-06-19 07:30] LABS: A/G RATIO 0.7 (0.7-1.9); ALBUMIN 2.6 G/DL (3.5-5.0); ALKALINE PHOSPHATASE 44 U/L (45-117); BUN (BLOOD UREA NITROGEN) 7 MG/DL (6-23); CALCIUM, SERUM 7.2 MG/DL (8.5-10.4); CHLORIDE, SERUM 103 MMOL/L (96-112); CO2 (CARBON DIOXIDE) 21 MMOL/L (24-34); CREATININE 0.75 MG/DL (0.55-1.02); GFR AFRICAN AMERICAN 113 ML/MIN (>=60); GFR NON AFRICAN AMERICAN 98 ML/MIN (>=60); GLOBULIN 3.8 G/DL (2.5-4.1); GLUCOSE, SERUM 104 MG/DL (60-99); PHOSPHORUS, SERUM 1.5 MG/DL (2.5-4.5); POTASSIUM, SERUM 3.7 MMOL/L (3.5-5.3); SGOT(AST) 14 U/L (5-40); SGPT(ALT) 32 U/L (5-65); SODIUM, SERUM 135 MMOL/L (135-148); TOTAL BILIRUBIN 0.4 MG/DL (0-1.2); TOTAL PROTEIN 6.4 G/DL (6.0-8.5)
[2016-06-19 08:26] LABS: RETICULOCYTE COUNT 0.2 % (0.5-2.9); RETICULOCYTE COUNT ABSOLUTE 3.2 10/3/uL (20.2-119.8)
[2016-06-20 04:15] LABS: MEAN CORPUS HGB CONC 34.5 g/dL (32.0-36.0); MEAN CORPUSCULAR HEMOGLOB 31.8 pg (26.0-34.0); MEAN CORPUSCULAR VOLUME 91.9 fL (80-100); MEAN PLATELET VOLUME 9.9 fL (9.2-13.0); RBC DISTRIBUTION WIDTH 14.2 % (12.0-16.0); RED CELL COUNT 2.11 10/6/uL (4.0-5.6)
[2016-06-20 04:16] LABS: HEMATOCRIT 19.4 % (36.0-48.0); HEMOGLOBIN 6.7 g/dL (12.0-16.0); PLATELET COUNT 14 10/3/uL (150-400)
[2016-06-20 04:17] LABS: MANUAL DIFF YES %
[2016-06-20 04:36] LABS: BUN (BLOOD UREA NITROGEN) 4 MG/DL (6-23); CALCIUM, SERUM 7.2 MG/DL (8.5-10.4); CHLORIDE, SERUM 105 MMOL/L (96-112); CO2 (CARBON DIOXIDE) 21 MMOL/L (24-34); CREATININE 0.67 MG/DL (0.55-1.02); GFR AFRICAN AMERICAN 125 ML/MIN (>=60); GFR NON AFRICAN AMERICAN 108 ML/MIN (>=60); GLUCOSE, SERUM 107 MG/DL (60-99); PHOSPHORUS, SERUM 1.2 MG/DL (2.5-4.5); POTASSIUM, SERUM 3.3 MMOL/L (3.5-5.3); SODIUM, SERUM 136 MMOL/L (135-148)
[2016-06-20 05:39] LABS: LYMPHOCYTES 100 %; PLATELET ESTIMATE DEC (ADEQUATE); TOTAL NUCLEATED CELLS 100
[2016-06-20 05:40] LABS: SPHEROCYTES FEW (3-10/OIF)
[2016-06-21 04:49] LABS: ASCORBIC ACID (UR NOT ORDER) NEG (NEG); BILIRUBIN, URINE NEGATIVE (NEG); KETONE, URINE NEGATIVE (NEG); LEUKOCYTE ESTERASE(NOT OR NEG (NEG); WBC (NOT ORDERED) (RFLEX) 1 (0-5)
[2016-06-21 05:36] LABS: HEMATOCRIT 20.4 % (36.0-48.0); HEMOGLOBIN 7.3 g/dL (12.0-16.0); MEAN CORPUS HGB CONC 35.8 g/dL (32.0-36.0); MEAN CORPUSCULAR HEMOGLOB 31.5 pg (26.0-34.0); MEAN CORPUSCULAR VOLUME 87.9 fL (80-100); MEAN PLATELET VOLUME 10.4 fL (9.2-13.0); PLATELET COUNT 6 10/3/uL (150-400); RBC DISTRIBUTION WIDTH 15.7 % (12.0-16.0); RED CELL COUNT 2.32 10/6/uL (4.0-5.6); WHITE BLOOD CELLS 0.1 10/3/uL (4.5-10.5)
[2016-06-21 05:37] LABS: MANUAL DIFF YES %
[2016-06-21 05:41] LABS: BUN (BLOOD UREA NITROGEN) 4 MG/DL (6-23); CHLORIDE, SERUM 104 MMOL/L (96-112); CO2 (CARBON DIOXIDE) 20 MMOL/L (24-34); CREATININE 0.82 MG/DL (0.55-1.02); GFR AFRICAN AMERICAN 102 ML/MIN (>=60); GFR NON AFRICAN AMERICAN 88 ML/MIN (>=60); GLUCOSE, SERUM 92 MG/DL (60-99); SODIUM, SERUM 138 MMOL/L (135-148)
[2016-06-21 05:45] LABS: CALCIUM, SERUM 6.9 MG/DL (8.5-10.4); PHOSPHORUS, SERUM 0.8 MG/DL (2.5-4.5); POTASSIUM, SERUM 2.8 MMOL/L (3.5-5.3)
[2016-06-21 07:05] LABS: RBC MORPHOLOGY NORM (NORMAL)
[2016-06-22 05:55] LABS: MEAN CORPUS HGB CONC 35.5 g/dL (32.0-36.0); MEAN CORPUSCULAR HEMOGLOB 31.6 pg (26.0-34.0); MEAN CORPUSCULAR VOLUME 88.9 fL (80-100); RBC DISTRIBUTION WIDTH 15.4 % (12.0-16.0)
[2016-06-22 05:59] LABS: HEMATOCRIT 16.9 % (36.0-48.0); PLATELET COUNT 14 10/3/uL (150-400)
[2016-06-22 06:00] LABS: MANUAL DIFF YES %
[2016-06-22 06:18] LABS: BUN (BLOOD UREA NITROGEN) 3 MG/DL (6-23); CHLORIDE, SERUM 106 MMOL/L (96-112); CO2 (CARBON DIOXIDE) 21 MMOL/L (24-34); CREATININE 0.87 MG/DL (0.55-1.02); GFR AFRICAN AMERICAN 95 ML/MIN (>=60); GFR NON AFRICAN AMERICAN 82 ML/MIN (>=60); SODIUM, SERUM 140 MMOL/L (135-148)
[2016-06-22 06:21] LABS: CALCIUM, SERUM 6.6 MG/DL (8.5-10.4); GLUCOSE, SERUM 116 MG/DL (60-99); POTASSIUM, SERUM 2.4 MMOL/L (3.5-5.3)
[2016-06-22 07:24] LABS: ROULEAUX FORMATION 1+
[2016-06-22 07:33] LABS: PHOSPHORUS, SERUM 1.3 MG/DL (2.5-4.5)
[2016-06-23 06:15] LABS: MEAN CORPUS HGB CONC 35.6 g/dL (32.0-36.0); MEAN CORPUSCULAR HEMOGLOB 30.3 pg (26.0-34.0); MEAN PLATELET VOLUME 9.1 fL (9.2-13.0); RBC DISTRIBUTION WIDTH 16.1 % (12.0-16.0)
[2016-06-23 06:16] LABS: HEMATOCRIT 21.6 % (36.0-48.0); HEMOGLOBIN 7.7 g/dL (12.0-16.0); MANUAL DIFF YES %; PLATELET COUNT 11 10/3/uL (150-400); RED CELL COUNT 2.54 10/6/uL (4.0-5.6); WHITE BLOOD CELLS 0.1 10/3/uL (4.5-10.5)
[2016-06-23 06:19] LABS: BUN (BLOOD UREA NITROGEN) 4 MG/DL (6-23); CALCIUM, SERUM 7.1 MG/DL (8.5-10.4); CHLORIDE, SERUM 110 MMOL/L (96-112); CO2 (CARBON DIOXIDE) 18 MMOL/L (24-34); CREATININE 0.91 MG/DL (0.55-1.02); GFR AFRICAN AMERICAN 90 ML/MIN (>=60); GFR NON AFRICAN AMERICAN 77 ML/MIN (>=60); GLUCOSE, SERUM 102 MG/DL (60-99); SODIUM, SERUM 142 MMOL/L (135-148)
[2016-06-23 06:21] LABS: POTASSIUM, SERUM 2.8 MMOL/L (3.5-5.3)
[2016-06-23 07:12] LABS: PHOSPHORUS, SERUM 1.6 MG/DL (2.5-4.5)
[2016-06-23 07:36] LABS: LYMPHOCYTES 100 %; ROULEAUX FORMATION 1+; TOTAL NUCLEATED CELLS 100
[2016-06-24 05:51] LABS: HEMOGLOBIN 7.2 g/dL (12.0-16.0); MEAN CORPUSCULAR HEMOGLOB 31.3 pg (26.0-34.0); MEAN PLATELET VOLUME 8.9 fL (9.2-13.0); RBC DISTRIBUTION WIDTH 16.5 % (12.0-16.0)
[2016-06-24 06:16] LABS: BUN (BLOOD UREA NITROGEN) 7 MG/DL (6-23); CHLORIDE, SERUM 114 MMOL/L (96-112); CO2 (CARBON DIOXIDE) 21 MMOL/L (24-34); CREATININE 0.72 MG/DL (0.55-1.02); GFR AFRICAN AMERICAN 119 ML/MIN (>=60); GFR NON AFRICAN AMERICAN 103 ML/MIN (>=60); GLUCOSE, SERUM 145 MG/DL (60-99); SODIUM, SERUM 145 MMOL/L (135-148)
[2016-06-24 06:19] LABS: PLATELET COUNT 6 10/3/uL (150-400)
[2016-06-24 06:20] LABS: MANUAL DIFF YES %
[2016-06-24 06:41] LABS: BURR CELLS 1+ (3-10/OIF) (0-2/OIF); LYMPHOCYTES 100 %; TEARDROP SHAPED RBCS FEW (3-10/OIF); TOTAL NUCLEATED CELLS 1
[2016-06-24 06:42] LABS: OVALOCYTES 1+ (3-10/OIF) (0-2/OIF)
[2016-06-24 11:21] LABS: INFLUENZA A SCREEN NEGATIVE (NEGATIVE); INFLUENZA B SCREEN NEGATIVE (NEGATIVE)
[2016-06-25 07:17] LABS: BASOPHILS 0 %; EOSINOPHILS 0 %; HEMATOCRIT 22.8 % (36.0-48.0); HEMOGLOBIN 8.2 g/dL (12.0-16.0); LYMPHOCYTES 90.9 %; MEAN CORPUSCULAR HEMOGLOB 30.9 pg (26.0-34.0); MONOCYTES 0 %; NEUTROPHILS 9.1 %; NEUTROPHILS ABSOLUTE 0.01 10/3/uL (2.02-8.40); PLATELET COUNT 14 10/3/uL (150-400); RBC DISTRIBUTION WIDTH 16.6 % (12.0-16.0); RED CELL COUNT 2.65 10/6/uL (4.0-5.6); WHITE BLOOD CELLS 0.1 10/3/uL (4.5-10.5)
[2016-06-25 07:18] LABS: MANUAL DIFF NO %
[2016-06-25 07:27] LABS: BUN (BLOOD UREA NITROGEN) 6 MG/DL (6-23); CALCIUM, SERUM 7.6 MG/DL (8.5-10.4); CHLORIDE, SERUM 110 MMOL/L (96-112); CO2 (CARBON DIOXIDE) 24 MMOL/L (24-34); CREATININE 0.76 MG/DL (0.55-1.02); GFR AFRICAN AMERICAN 111 ML/MIN (>=60); GFR NON AFRICAN AMERICAN 96 ML/MIN (>=60); PHOSPHORUS, SERUM 2.3 MG/DL (2.5-4.5); SODIUM, SERUM 147 MMOL/L (135-148)
[2016-06-25 07:28] LABS: GLUCOSE, SERUM 104 MG/DL (60-99); POTASSIUM, SERUM 2.7 MMOL/L (3.5-5.3)
[2016-06-25 07:51] LABS: LYMPHOCYTES 100 %; POIKILOCYTOSIS 1+ (5-10/OIF) (0-5/OIF); SCHISTOCYTES OCC (0-2/OIF); TOTAL NUCLEATED CELLS 16
[2016-06-26 07:05] LABS: BUN (BLOOD UREA NITROGEN) 8 MG/DL (6-23); CALCIUM, SERUM 7.4 MG/DL (8.5-10.4); CHLORIDE, SERUM 108 MMOL/L (96-112); CO2 (CARBON DIOXIDE) 26 MMOL/L (24-34); CREATININE 0.78 MG/DL (0.55-1.02); GFR AFRICAN AMERICAN 108 ML/MIN (>=60); GFR NON AFRICAN AMERICAN 93 ML/MIN (>=60); PHOSPHORUS, SERUM 2.5 MG/DL (2.5-4.5); SODIUM, SERUM 146 MMOL/L (135-148)
[2016-06-26 07:07] LABS: GLUCOSE, SERUM 158 MG/DL (60-99); POTASSIUM, SERUM 2.4 MMOL/L (3.5-5.3)
[2016-06-26 07:08] LABS: HEMATOCRIT 23.2 % (36.0-48.0); HEMOGLOBIN 8.1 g/dL (12.0-16.0); MEAN CORPUS HGB CONC 34.9 g/dL (32.0-36.0); MEAN CORPUSCULAR HEMOGLOB 30.9 pg (26.0-34.0); MEAN CORPUSCULAR VOLUME 88.5 fL (80-100); MEAN PLATELET VOLUME 10.4 fL (9.2-13.0); RBC DISTRIBUTION WIDTH 16.3 % (12.0-16.0); RED CELL COUNT 2.62 10/6/uL (4.0-5.6)
[2016-06-26 07:12] LABS: PLATELET COUNT 7 10/3/uL (150-400); WHITE BLOOD CELLS 0.1 10/3/uL (4.5-10.5)
[2016-06-26 07:13] LABS: MANUAL DIFF YES %
[2016-06-26 07:38] LABS: LYMPHOCYTES 100 %; TOTAL NUCLEATED CELLS 100
[2016-06-26 07:39] LABS: RBC MORPHOLOGY NORM (NORMAL)
[2016-06-27 07:21] LABS: HEMATOCRIT 25.3 % (36.0-48.0); MEAN CORPUS HGB CONC 35.6 g/dL (32.0-36.0); MEAN CORPUSCULAR HEMOGLOB 31.4 pg (26.0-34.0); MEAN CORPUSCULAR VOLUME 88.2 fL (80-100); MEAN PLATELET VOLUME 10.2 fL (9.2-13.0); RBC DISTRIBUTION WIDTH 15.7 % (12.0-16.0); RED CELL COUNT 2.87 10/6/uL (4.0-5.6)
[2016-06-27 07:22] LABS: MANUAL DIFF YES %; PLATELET COUNT 31 10/3/uL (150-400); WHITE BLOOD CELLS 0.1 10/3/uL (4.5-10.5)
[2016-06-27 07:30] LABS: BUN (BLOOD UREA NITROGEN) 7 MG/DL (6-23); CALCIUM, SERUM 7.3 MG/DL (8.5-10.4); CHLORIDE, SERUM 103 MMOL/L (96-112); CO2 (CARBON DIOXIDE) 28 MMOL/L (24-34); CREATININE 0.72 MG/DL (0.55-1.02); GFR AFRICAN AMERICAN 119 ML/MIN (>=60); GFR NON AFRICAN AMERICAN 103 ML/MIN (>=60); PHOSPHORUS, SERUM 2.4 MG/DL (2.5-4.5); SODIUM, SERUM 145 MMOL/L (135-148)
[2016-06-27 07:33] LABS: GLUCOSE, SERUM 101 MG/DL (60-99); POTASSIUM, SERUM 2.3 MMOL/L (3.5-5.3)
[2016-06-27 07:52] LABS: LYMPHOCYTES 100 %; RBC MORPHOLOGY NORM (NORMAL); TOTAL NUCLEATED CELLS 68
[2016-06-28 05:27] LABS: BUN (BLOOD UREA NITROGEN) 9 MG/DL (6-23); CHLORIDE, SERUM 101 MMOL/L (96-112); CO2 (CARBON DIOXIDE) 30 MMOL/L (24-34); CREATININE 0.72 MG/DL (0.55-1.02); GFR AFRICAN AMERICAN 119 ML/MIN (>=60); GFR NON AFRICAN AMERICAN 103 ML/MIN (>=60); GLUCOSE, SERUM 100 MG/DL (60-99); SODIUM, SERUM 143 MMOL/L (135-148)
[2016-06-28 05:33] LABS: CALCIUM, SERUM 6.6 MG/DL (8.5-10.4); PHOSPHORUS, SERUM 3.5 MG/DL (2.5-4.5); POTASSIUM, SERUM 2.6 MMOL/L (3.5-5.3)
[2016-06-28 05:51] LABS: HEMATOCRIT 25.2 % (36.0-48.0); HEMOGLOBIN 8.7 g/dL (12.0-16.0); MEAN CORPUS HGB CONC 34.5 g/dL (32.0-36.0); MEAN CORPUSCULAR HEMOGLOB 31.1 pg (26.0-34.0); MEAN PLATELET VOLUME 10.9 fL (9.2-13.0); RBC DISTRIBUTION WIDTH 15.7 % (12.0-16.0)
[2016-06-28 05:55] LABS: MANUAL DIFF YES %; PLATELET COUNT 20 10/3/uL (150-400); WHITE BLOOD CELLS 0.1 10/3/uL (4.5-10.5)
[2016-06-28 06:58] LABS: LYMPHOCYTES 100 %; RBC MORPHOLOGY NORM (NORMAL); TOTAL NUCLEATED CELLS 100
[2016-06-29 07:05] LABS: HEMATOCRIT 23.1 % (36.0-48.0); HEMOGLOBIN 7.8 g/dL (12.0-16.0); MEAN CORPUS HGB CONC 33.8 g/dL (32.0-36.0); MEAN CORPUSCULAR HEMOGLOB 30.1 pg (26.0-34.0); MEAN CORPUSCULAR VOLUME 89.2 fL (80-100); MEAN PLATELET VOLUME 9.4 fL (9.2-13.0); RBC DISTRIBUTION WIDTH 15.5 % (12.0-16.0); RED CELL COUNT 2.59 10/6/uL (4.0-5.6)
[2016-06-29 07:10] LABS: MANUAL DIFF YES %; PLATELET COUNT 12 10/3/uL (150-400); WHITE BLOOD CELLS 0.1 10/3/uL (4.5-10.5)
[2016-06-29 07:14] LABS: BUN (BLOOD UREA NITROGEN) 8 MG/DL (6-23); CALCIUM, SERUM 6.7 MG/DL (8.5-10.4); CHLORIDE, SERUM 98 MMOL/L (96-112); CO2 (CARBON DIOXIDE) 28 MMOL/L (24-34); CREATININE 0.74 MG/DL (0.55-1.02); GFR AFRICAN AMERICAN 115 ML/MIN (>=60); GFR NON AFRICAN AMERICAN 99 ML/MIN (>=60); GLUCOSE, SERUM 114 MG/DL (60-99); PHOSPHORUS, SERUM 2.3 MG/DL (2.5-4.5); POTASSIUM, SERUM 2.7 MMOL/L (3.5-5.3); SODIUM, SERUM 138 MMOL/L (135-148)
[2016-06-29 07:55] LABS: LYMPHOCYTES 100 %; TOTAL NUCLEATED CELLS 1
[2016-06-29 07:56] LABS: RBC MORPHOLOGY NORM (NORMAL)
[2016-06-30 06:40] LABS: HEMATOCRIT 23.4 % (36.0-48.0); HEMOGLOBIN 7.9 g/dL (12.0-16.0); MEAN CORPUS HGB CONC 33.8 g/dL (32.0-36.0); MEAN PLATELET VOLUME 10.3 fL (9.2-13.0); RBC DISTRIBUTION WIDTH 14.9 % (12.0-16.0); RED CELL COUNT 2.63 10/6/uL (4.0-5.6)
[2016-06-30 06:43] LABS: PLATELET COUNT 9 10/3/uL (150-400); WHITE BLOOD CELLS 0.1 10/3/uL (4.5-10.5)
[2016-06-30 06:44] LABS: MANUAL DIFF YES %
[2016-06-30 06:56] LABS: BUN (BLOOD UREA NITROGEN) 9 MG/DL (6-23); CALCIUM, SERUM 7.4 MG/DL (8.5-10.4); CHLORIDE, SERUM 98 MMOL/L (96-112); CO2 (CARBON DIOXIDE) 26 MMOL/L (24-34); CREATININE 0.54 MG/DL (0.55-1.02); GFR AFRICAN AMERICAN 134 ML/MIN (>=60); GFR NON AFRICAN AMERICAN 116 ML/MIN (>=60); GLUCOSE, SERUM 101 MG/DL (60-99); PHOSPHORUS, SERUM 2.4 MG/DL (2.5-4.5); SODIUM, SERUM 138 MMOL/L (135-148)
[2016-06-30 06:58] LABS: POTASSIUM, SERUM 2.9 MMOL/L (3.5-5.3)
[2016-06-30 07:45] LABS: LYMPHOCYTES 100 %; RBC MORPHOLOGY NORM (NORMAL); TOTAL NUCLEATED CELLS 1
[2016-06-30 15:57] LABS: CMV DNA PCR QUAL Not Detected (NOTDET); CMV SOURCE Plasma (())
[2016-07-01 05:23] LABS: HEMATOCRIT 22.9 % (36.0-48.0); HEMOGLOBIN 7.6 g/dL (12.0-16.0); MEAN CORPUS HGB CONC 33.2 g/dL (32.0-36.0); MEAN CORPUSCULAR HEMOGLOB 29.5 pg (26.0-34.0); MEAN CORPUSCULAR VOLUME 88.8 fL (80-100); MEAN PLATELET VOLUME 10.3 fL (9.2-13.0); RBC DISTRIBUTION WIDTH 14.6 % (12.0-16.0); RED CELL COUNT 2.58 10/6/uL (4.0-5.6)
[2016-07-01 05:25] LABS: MANUAL DIFF YES %; PLATELET COUNT 44 10/3/uL (150-400); WHITE BLOOD CELLS 0.1 10/3/uL (4.5-10.5)
[2016-07-01 05:35] LABS: BUN (BLOOD UREA NITROGEN) 9 MG/DL (6-23); CALCIUM, SERUM 7.4 MG/DL (8.5-10.4); CHLORIDE, SERUM 96 MMOL/L (96-112); CO2 (CARBON DIOXIDE) 30 MMOL/L (24-34); CREATININE 0.65 MG/DL (0.55-1.02); GFR AFRICAN AMERICAN 126 ML/MIN (>=60); GFR NON AFRICAN AMERICAN 109 ML/MIN (>=60); GLUCOSE, SERUM 94 MG/DL (60-99); PHOSPHORUS, SERUM 2.5 MG/DL (2.5-4.5); SODIUM, SERUM 137 MMOL/L (135-148)
[2016-07-01 06:02] LABS: LYMPHOCYTES 100 %; TOTAL NUCLEATED CELLS 1
[2016-07-01 06:03] LABS: RBC MORPHOLOGY NORM (NORMAL)
[2016-07-02 05:52] LABS: MEAN CORPUS HGB CONC 34.7 g/dL (32.0-36.0); MEAN CORPUSCULAR HEMOGLOB 31.2 pg (26.0-34.0); MEAN PLATELET VOLUME 10.1 fL (9.2-13.0); RED CELL COUNT 2.21 10/6/uL (4.0-5.6)
[2016-07-02 05:59] LABS: HEMATOCRIT 19.9 % (36.0-48.0); HEMOGLOBIN 6.9 g/dL (12.0-16.0); MANUAL DIFF YES %; PLATELET COUNT 26 10/3/uL (150-400); WHITE BLOOD CELLS 0.1 10/3/uL (4.5-10.5)
[2016-07-02 06:16] LABS: BUN (BLOOD UREA NITROGEN) 7 MG/DL (6-23); CALCIUM, SERUM 7.7 MG/DL (8.5-10.4); CHLORIDE, SERUM 99 MMOL/L (96-112); CREATININE 0.55 MG/DL (0.55-1.02); GFR AFRICAN AMERICAN 133 ML/MIN (>=60); GFR NON AFRICAN AMERICAN 115 ML/MIN (>=60); GLUCOSE, SERUM 96 MG/DL (60-99); POTASSIUM, SERUM 3.4 MMOL/L (3.5-5.3); SODIUM, SERUM 138 MMOL/L (135-148)
[2016-07-02 06:19] LABS: CO2 (CARBON DIOXIDE) 25 MMOL/L (24-34)
[2016-07-02 06:49] LABS: LYMPHOCYTES 100 %; RBC MORPHOLOGY NORM (NORMAL); TOTAL NUCLEATED CELLS 100
[2016-07-03 04:05] LABS: HEMOGLOBIN 8.1 g/dL (12.0-16.0); MEAN CORPUS HGB CONC 35.1 g/dL (32.0-36.0); MEAN CORPUSCULAR HEMOGLOB 30.9 pg (26.0-34.0); MEAN CORPUSCULAR VOLUME 88.2 fL (80-100); MEAN PLATELET VOLUME 10.5 fL (9.2-13.0); RBC DISTRIBUTION WIDTH 13.7 % (12.0-16.0); RED CELL COUNT 2.62 10/6/uL (4.0-5.6)
[2016-07-03 04:08] LABS: HEMATOCRIT 23.1 % (36.0-48.0); MANUAL DIFF YES %; PLATELET COUNT 18 10/3/uL (150-400); WHITE BLOOD CELLS 0.1 10/3/uL (4.5-10.5)
[2016-07-03 04:21] LABS: BUN (BLOOD UREA NITROGEN) 7 MG/DL (6-23); CALCIUM, SERUM 8.4 MG/DL (8.5-10.4); CHLORIDE, SERUM 99 MMOL/L (96-112); CO2 (CARBON DIOXIDE) 25 MMOL/L (24-34); CREATININE 0.66 MG/DL (0.55-1.02); GFR AFRICAN AMERICAN 125 ML/MIN (>=60); GFR NON AFRICAN AMERICAN 108 ML/MIN (>=60); GLUCOSE, SERUM 109 MG/DL (60-99); PHOSPHORUS, SERUM 2.8 MG/DL (2.5-4.5); POTASSIUM, SERUM 3.3 MMOL/L (3.5-5.3); SODIUM, SERUM 136 MMOL/L (135-148)
[2016-07-03 04:33] LABS: LYMPHOCYTES 100 %; TOTAL NUCLEATED CELLS 1
[2016-07-03 04:34] LABS: OVALOCYTES 1+ (3-10/OIF) (0-2/OIF)
[2016-07-04 05:12] LABS: HEMATOCRIT 23.1 % (36.0-48.0); MEAN CORPUS HGB CONC 34.6 g/dL (32.0-36.0); MEAN CORPUSCULAR HEMOGLOB 30.4 pg (26.0-34.0); MEAN CORPUSCULAR VOLUME 87.8 fL (80-100); MEAN PLATELET VOLUME 11.3 fL (9.2-13.0); RBC DISTRIBUTION WIDTH 13.2 % (12.0-16.0); RED CELL COUNT 2.63 10/6/uL (4.0-5.6)
[2016-07-04 05:22] LABS: MANUAL DIFF YES %; PLATELET COUNT 12 10/3/uL (150-400); WHITE BLOOD CELLS 0.1 10/3/uL (4.5-10.5)
[2016-07-04 05:25] LABS: BUN (BLOOD UREA NITROGEN) 7 MG/DL (6-23); CALCIUM, SERUM 8.2 MG/DL (8.5-10.4); CHLORIDE, SERUM 97 MMOL/L (96-112); CO2 (CARBON DIOXIDE) 25 MMOL/L (24-34); CREATININE 0.55 MG/DL (0.55-1.02); GFR AFRICAN AMERICAN 133 ML/MIN (>=60); GFR NON AFRICAN AMERICAN 115 ML/MIN (>=60); GLUCOSE, SERUM 97 MG/DL (60-99); POTASSIUM, SERUM 3.1 MMOL/L (3.5-5.3); SODIUM, SERUM 136 MMOL/L (135-148)
[2016-07-04 06:05] LABS: LYMPHOCYTES 100 %; ROULEAUX FORMATION 1+; TOTAL NUCLEATED CELLS 100
[2016-07-05 05:44] LABS: HEMOGLOBIN 7.3 g/dL (12.0-16.0); MEAN CORPUS HGB CONC 35.4 g/dL (32.0-36.0); MEAN CORPUSCULAR HEMOGLOB 30.7 pg (26.0-34.0); MEAN CORPUSCULAR VOLUME 86.6 fL (80-100); MEAN PLATELET VOLUME 10.4 fL (9.2-13.0); RBC DISTRIBUTION WIDTH 13.1 % (12.0-16.0); RED CELL COUNT 2.38 10/6/uL (4.0-5.6)
[2016-07-05 05:51] LABS: HEMATOCRIT 20.6 % (36.0-48.0); PLATELET COUNT 5 10/3/uL (150-400); WHITE BLOOD CELLS 0.1 10/3/uL (4.5-10.5)
[2016-07-05 05:52] LABS: MANUAL DIFF YES %
[2016-07-05 05:59] LABS: BUN (BLOOD UREA NITROGEN) 7 MG/DL (6-23); CHLORIDE, SERUM 98 MMOL/L (96-112); CO2 (CARBON DIOXIDE) 25 MMOL/L (24-34); CREATININE 0.58 MG/DL (0.55-1.02); GFR AFRICAN AMERICAN 131 ML/MIN (>=60); GFR NON AFRICAN AMERICAN 113 ML/MIN (>=60); GLUCOSE, SERUM 94 MG/DL (60-99); PHOSPHORUS, SERUM 2.7 MG/DL (2.5-4.5); POTASSIUM, SERUM 3.1 MMOL/L (3.5-5.3); SODIUM, SERUM 136 MMOL/L (135-148)
[2016-07-05 06:27] LABS: LYMPHOCYTES 100 %; RBC MORPHOLOGY NORM (NORMAL); TOTAL NUCLEATED CELLS 1
[2016-07-05 09:18] LABS: SGOT(AST) 99 U/L (5-40); SGPT(ALT) 113 U/L (5-65); TOTAL BILIRUBIN 0.3 MG/DL (0-1.2)
[2016-07-05 09:19] LABS: ALBUMIN 1.9 G/DL (3.5-5.0); ALKALINE PHOSPHATASE 123 U/L (45-117); DIRECT BILIRUBIN < 0.1 MG/DL (0.0-0.4); INDIRECT BILIRUBIN(NOT ORDER) 0.2 MG/DL (0.1-0.9)
[2016-07-06 05:20] LABS: MEAN CORPUS HGB CONC 34.5 g/dL (32.0-36.0); MEAN CORPUSCULAR HEMOGLOB 29.7 pg (26.0-34.0); MEAN PLATELET VOLUME 9.5 fL (9.2-13.0); RBC DISTRIBUTION WIDTH 13.2 % (12.0-16.0); RED CELL COUNT 2.36 10/6/uL (4.0-5.6)
[2016-07-06 05:21] LABS: HEMATOCRIT 20.3 % (36.0-48.0); PLATELET COUNT 44 10/3/uL (150-400); WHITE BLOOD CELLS 0.1 10/3/uL (4.5-10.5)
[2016-07-06 05:22] LABS: MANUAL DIFF YES %
[2016-07-06 05:34] LABS: ALKALINE PHOSPHATASE 134 U/L (45-117); BUN (BLOOD UREA NITROGEN) 5 MG/DL (6-23); CALCIUM, SERUM 8.6 MG/DL (8.5-10.4); CHLORIDE, SERUM 98 MMOL/L (96-112); CO2 (CARBON DIOXIDE) 26 MMOL/L (24-34); CREATININE 0.56 MG/DL (0.55-1.02); GFR AFRICAN AMERICAN 132 ML/MIN (>=60); GFR NON AFRICAN AMERICAN 114 ML/MIN (>=60); GLUCOSE, SERUM 97 MG/DL (60-99); PHOSPHORUS, SERUM 3.2 MG/DL (2.5-4.5); POTASSIUM, SERUM 3.2 MMOL/L (3.5-5.3); SGOT(AST) 86 U/L (5-40); SGPT(ALT) 110 U/L (5-65); SODIUM, SERUM 136 MMOL/L (135-148); TOTAL BILIRUBIN 0.7 MG/DL (0-1.2); TOTAL PROTEIN 7.2 G/DL (6.0-8.5)
[2016-07-06 05:35] LABS: DIRECT BILIRUBIN < 0.1 MG/DL (0.0-0.4); INDIRECT BILIRUBIN(NOT ORDER) 0.6 MG/DL (0.1-0.9)
[2016-07-06 06:08] LABS: LYMPHOCYTES 100 %; POLYCHROMASIA 1+ (2-5/OIF) (0-1/OIF); TOTAL NUCLEATED CELLS 100
[2016-07-07 06:23] LABS: MEAN CORPUS HGB CONC 35.2 g/dL (32.0-36.0); MEAN CORPUSCULAR HEMOGLOB 30.3 pg (26.0-34.0); RBC DISTRIBUTION WIDTH 12.9 % (12.0-16.0); RED CELL COUNT 2.28 10/6/uL (4.0-5.6)
[2016-07-07 06:26] LABS: HEMATOCRIT 19.6 % (36.0-48.0); HEMOGLOBIN 6.9 g/dL (12.0-16.0); PLATELET COUNT 33 10/3/uL (150-400)
[2016-07-07 06:28] LABS: MANUAL DIFF YES %
[2016-07-07 06:47] LABS: LYMPHOCYTES 100 %; PLATELET ESTIMATE DEC (ADEQUATE); TOTAL NUCLEATED CELLS 100
[2016-07-07 06:48] LABS: RBC MORPHOLOGY NORM (NORMAL)
[2016-07-07 07:27] LABS: ALBUMIN 1.9 G/DL (3.5-5.0); ALKALINE PHOSPHATASE 132 U/L (45-117); BUN (BLOOD UREA NITROGEN) 6 MG/DL (6-23); CALCIUM, SERUM 8.7 MG/DL (8.5-10.4); CO2 (CARBON DIOXIDE) 24 MMOL/L (24-34); GFR AFRICAN AMERICAN 129 ML/MIN (>=60); GFR NON AFRICAN AMERICAN 112 ML/MIN (>=60); SGOT(AST) 86 U/L (5-40); TOTAL BILIRUBIN 0.3 MG/DL (0-1.2); TOTAL PROTEIN 7.1 G/DL (6.0-8.5)
[2016-07-07 07:32] LABS: DIRECT BILIRUBIN < 0.1 MG/DL (0.0-0.4); GLUCOSE, SERUM 139 MG/DL (60-99); INDIRECT BILIRUBIN(NOT ORDER) 0.2 MG/DL (0.1-0.9)
[2016-07-07 07:42] LABS: PROCALCITONIN 0.37 ng/mL (<0.5)
[2016-07-07 08:11] LABS: SGPT(ALT) 103 U/L (5-65)
[2016-07-07 08:12] LABS: PHOSPHORUS, SERUM 1.6 MG/DL (2.5-4.5)
[2016-07-07 08:13] LABS: CHLORIDE, SERUM 97 MMOL/L (96-112); POTASSIUM, SERUM 2.6 MMOL/L (3.5-5.3); SODIUM, SERUM 133 MMOL/L (135-148)
[2016-07-08 05:13] LABS: MEAN CORPUSCULAR HEMOGLOB 29.7 pg (26.0-34.0); MEAN CORPUSCULAR VOLUME 84.8 fL (80-100); MEAN PLATELET VOLUME 10.3 fL (9.2-13.0); RBC DISTRIBUTION WIDTH 13.7 % (12.0-16.0)
[2016-07-08 05:20] LABS: HEMOGLOBIN 8.4 g/dL (12.0-16.0); PLATELET COUNT 27 10/3/uL (150-400); RED CELL COUNT 2.83 10/6/uL (4.0-5.6); WHITE BLOOD CELLS 0.1 10/3/uL (4.5-10.5)
[2016-07-08 05:21] LABS: MANUAL DIFF YES %
[2016-07-08 05:27] LABS: ALBUMIN 1.9 G/DL (3.5-5.0); BUN (BLOOD UREA NITROGEN) 6 MG/DL (6-23); CALCIUM, SERUM 8.6 MG/DL (8.5-10.4); CHLORIDE, SERUM 96 MMOL/L (96-112); CO2 (CARBON DIOXIDE) 23 MMOL/L (24-34); CREATININE 0.59 MG/DL (0.55-1.02); GFR AFRICAN AMERICAN 130 ML/MIN (>=60); GFR NON AFRICAN AMERICAN 112 ML/MIN (>=60); SGOT(AST) 103 U/L (5-40); SGPT(ALT) 120 U/L (5-65); SODIUM, SERUM 132 MMOL/L (135-148); TOTAL BILIRUBIN 0.3 MG/DL (0-1.2); TOTAL PROTEIN 7.2 G/DL (6.0-8.5)
[2016-07-08 05:41] LABS: ALKALINE PHOSPHATASE 155 U/L (45-117); DIRECT BILIRUBIN < 0.1 MG/DL (0.0-0.4); GLUCOSE, SERUM 99 MG/DL (60-99); INDIRECT BILIRUBIN(NOT ORDER) 0.2 MG/DL (0.1-0.9); PHOSPHORUS, SERUM 2.5 MG/DL (2.5-4.5)
[2016-07-08 07:10] LABS: LYMPHOCYTES 100 %; TOTAL NUCLEATED CELLS 10
[2016-07-08 07:11] LABS: RBC MORPHOLOGY NORM (NORMAL)
[2016-07-09 07:22] LABS: HEMATOCRIT 24.2 % (36.0-48.0); HEMOGLOBIN 8.3 g/dL (12.0-16.0); MEAN CORPUS HGB CONC 34.3 g/dL (32.0-36.0); MEAN CORPUSCULAR VOLUME 84.6 fL (80-100); MEAN PLATELET VOLUME 9.1 fL (9.2-13.0); RBC DISTRIBUTION WIDTH 13.7 % (12.0-16.0); RED CELL COUNT 2.86 10/6/uL (4.0-5.6)
[2016-07-09 07:23] LABS: MANUAL DIFF YES %; PLATELET COUNT 18 10/3/uL (150-400); WHITE BLOOD CELLS 0.1 10/3/uL (4.5-10.5)
[2016-07-09 07:36] LABS: BUN (BLOOD UREA NITROGEN) 8 MG/DL (6-23); CALCIUM, SERUM 8.7 MG/DL (8.5-10.4); CHLORIDE, SERUM 102 MMOL/L (96-112); CO2 (CARBON DIOXIDE) 20 MMOL/L (24-34); CREATININE 0.66 MG/DL (0.55-1.02); GFR AFRICAN AMERICAN 125 ML/MIN (>=60); GFR NON AFRICAN AMERICAN 108 ML/MIN (>=60); GLUCOSE, SERUM 103 MG/DL (60-99); POTASSIUM, SERUM 3.2 MMOL/L (3.5-5.3); SGOT(AST) 104 U/L (5-40); SGPT(ALT) 133 U/L (5-65); SODIUM, SERUM 138 MMOL/L (135-148); TOTAL BILIRUBIN 0.6 MG/DL (0-1.2); TOTAL PROTEIN 7.5 G/DL (6.0-8.5)
[2016-07-09 07:37] LABS: ALKALINE PHOSPHATASE 169 U/L (45-117); DIRECT BILIRUBIN < 0.1 MG/DL (0.0-0.4); INDIRECT BILIRUBIN(NOT ORDER) 0.5 MG/DL (0.1-0.9)
[2016-07-09 08:37] LABS: LYMPHOCYTES 100 %; POLYCHROMASIA 1+ (2-5/OIF) (0-1/OIF); TOTAL NUCLEATED CELLS 100
[2016-07-10 08:05] LABS: HEMATOCRIT 22.4 % (36.0-48.0); HEMOGLOBIN 7.9 g/dL (12.0-16.0); MEAN CORPUS HGB CONC 35.3 g/dL (32.0-36.0); MEAN CORPUSCULAR HEMOGLOB 29.9 pg (26.0-34.0); MEAN CORPUSCULAR VOLUME 84.8 fL (80-100); MEAN PLATELET VOLUME 10.2 fL (9.2-13.0); RBC DISTRIBUTION WIDTH 13.3 % (12.0-16.0); RED CELL COUNT 2.64 10/6/uL (4.0-5.6)
[2016-07-10 08:07] LABS: PLATELET COUNT 12 10/3/uL (150-400); WHITE BLOOD CELLS 0.1 10/3/uL (4.5-10.5)
[2016-07-10 08:08] LABS: MANUAL DIFF YES %
[2016-07-10 08:23] LABS: BUN (BLOOD UREA NITROGEN) 8 MG/DL (6-23); CALCIUM, SERUM 8.3 MG/DL (8.5-10.4); CHLORIDE, SERUM 100 MMOL/L (96-112); CO2 (CARBON DIOXIDE) 23 MMOL/L (24-34); CREATININE 0.71 MG/DL (0.55-1.02); GFR AFRICAN AMERICAN 121 ML/MIN (>=60); GFR NON AFRICAN AMERICAN 104 ML/MIN (>=60); SGOT(AST) 170 U/L (5-40); SGPT(ALT) 176 U/L (5-65); TOTAL BILIRUBIN 0.4 MG/DL (0-1.2); TOTAL PROTEIN 7.3 G/DL (6.0-8.5)
[2016-07-10 08:24] LABS: A/G RATIO 0.4 (0.7-1.9); ALKALINE PHOSPHATASE 193 U/L (45-117); GLOBULIN 5.3 G/DL (2.5-4.1); GLUCOSE, SERUM 147 MG/DL (60-99)
[2016-07-10 08:26] LABS: LYMPHOCYTES 100 %; POLYCHROMASIA 1+ (2-5/OIF) (0-1/OIF); TOTAL NUCLEATED CELLS 100
[2016-07-10 08:29] LABS: SODIUM, SERUM 135 MMOL/L (135-148)
[2016-07-10 08:31] LABS: POTASSIUM, SERUM 2.9 MMOL/L (3.5-5.3)
[2016-07-10 18:51] LABS: BLASTOMYCES DERMATITIDIS AG None detected ng/mL (<0.20)
[2016-07-11 05:08] LABS: MEAN CORPUS HGB CONC 34.3 g/dL (32.0-36.0); MEAN CORPUSCULAR HEMOGLOB 28.7 pg (26.0-34.0); MEAN CORPUSCULAR VOLUME 83.6 fL (80-100); RBC DISTRIBUTION WIDTH 13.3 % (12.0-16.0); RED CELL COUNT 2.44 10/6/uL (4.0-5.6)
[2016-07-11 05:12] LABS: HEMATOCRIT 20.4 % (36.0-48.0); PLATELET COUNT 6 10/3/uL (150-400); WHITE BLOOD CELLS 0.1 10/3/uL (4.5-10.5)
[2016-07-11 05:15] LABS: MANUAL DIFF YES %
[2016-07-11 05:39] LABS: ALBUMIN 1.8 G/DL (3.5-5.0); ALKALINE PHOSPHATASE 203 U/L (45-117); BUN (BLOOD UREA NITROGEN) 7 MG/DL (6-23); CALCIUM, SERUM 8.4 MG/DL (8.5-10.4); CHLORIDE, SERUM 102 MMOL/L (96-112); CO2 (CARBON DIOXIDE) 22 MMOL/L (24-34); CREATININE 0.59 MG/DL (0.55-1.02); DIRECT BILIRUBIN 0.2 MG/DL (0.0-0.4); GFR AFRICAN AMERICAN 130 ML/MIN (>=60); GFR NON AFRICAN AMERICAN 112 ML/MIN (>=60); INDIRECT BILIRUBIN(NOT ORDER) 0.3 MG/DL (0.1-0.9); SGOT(AST) 129 U/L (5-40); SGPT(ALT) 156 U/L (5-65); SODIUM, SERUM 136 MMOL/L (135-148); TOTAL BILIRUBIN 0.5 MG/DL (0-1.2); TOTAL PROTEIN 6.7 G/DL (6.0-8.5)
[2016-07-11 05:41] LABS: GLUCOSE, SERUM 97 MG/DL (60-99)
[2016-07-11 07:18] LABS: LYMPHOCYTES 90 %; LYMPHOCYTES ABSOLUTE (CALC) 0.09 10/3/uL (0.67-4.30); NEUTROPHILS ABSOLUTE (CALC) 0.01 10/3/uL (2.02-8.40); ROULEAUX FORMATION 1+; SEGMENTED NEUTROPHIL (0) 10 %; TOTAL NUCLEATED CELLS 100
[2016-07-12 05:40] LABS: ALBUMIN 2.1 G/DL (3.5-5.0); BUN (BLOOD UREA NITROGEN) 5 MG/DL (6-23); CALCIUM, SERUM 8.6 MG/DL (8.5-10.4); CHLORIDE, SERUM 97 MMOL/L (96-112); CO2 (CARBON DIOXIDE) 24 MMOL/L (24-34); CREATININE 0.54 MG/DL (0.55-1.02); DIRECT BILIRUBIN 0.2 MG/DL (0.0-0.4); GFR AFRICAN AMERICAN 134 ML/MIN (>=60); GFR NON AFRICAN AMERICAN 116 ML/MIN (>=60); GLUCOSE, SERUM 90 MG/DL (60-99); INDIRECT BILIRUBIN(NOT ORDER) 0.6 MG/DL (0.1-0.9); PHOSPHORUS, SERUM 2.6 MG/DL (2.5-4.5); SGOT(AST) 104 U/L (5-40); SGPT(ALT) 151 U/L (5-65); SODIUM, SERUM 136 MMOL/L (135-148); TOTAL BILIRUBIN 0.8 MG/DL (0-1.2); TOTAL PROTEIN 7.8 G/DL (6.0-8.5)
[2016-07-12 05:42] LABS: ALKALINE PHOSPHATASE 224 U/L (45-117); POTASSIUM, SERUM 2.9 MMOL/L (3.5-5.3)
[2016-07-12 05:45] LABS: MEAN CORPUS HGB CONC 35.1 g/dL (32.0-36.0); MEAN CORPUSCULAR HEMOGLOB 28.9 pg (26.0-34.0); MEAN CORPUSCULAR VOLUME 82.3 fL (80-100); MEAN PLATELET VOLUME 9.8 fL (9.2-13.0); RBC DISTRIBUTION WIDTH 15.9 % (12.0-16.0)
[2016-07-12 05:50] LABS: HEMATOCRIT 25.1 % (36.0-48.0); HEMOGLOBIN 8.8 g/dL (12.0-16.0); PLATELET COUNT 33 10/3/uL (150-400); RED CELL COUNT 3.05 10/6/uL (4.0-5.6); WHITE BLOOD CELLS 0.1 10/3/uL (4.5-10.5)
[2016-07-12 05:51] LABS: MANUAL DIFF YES %
[2016-07-12 07:23] LABS: LYMPHOCYTES 100 %; TOTAL NUCLEATED CELLS 100
[2016-07-12 07:24] LABS: RBC MORPHOLOGY NORM (NORMAL)
[2016-07-13 05:42] LABS: HEMATOCRIT 23.3 % (36.0-48.0); HEMOGLOBIN 8.1 g/dL (12.0-16.0); MEAN CORPUS HGB CONC 34.8 g/dL (32.0-36.0); MEAN CORPUSCULAR HEMOGLOB 28.6 pg (26.0-34.0); MEAN CORPUSCULAR VOLUME 82.3 fL (80-100); MEAN PLATELET VOLUME 10.2 fL (9.2-13.0); RBC DISTRIBUTION WIDTH 15.4 % (12.0-16.0); RED CELL COUNT 2.83 10/6/uL (4.0-5.6)
[2016-07-13 05:44] LABS: MANUAL DIFF YES %; PLATELET COUNT 22 10/3/uL (150-400); WHITE BLOOD CELLS 0.1 10/3/uL (4.5-10.5)
[2016-07-13 05:52] LABS: ALBUMIN 1.8 G/DL (3.5-5.0); ALKALINE PHOSPHATASE 227 U/L (45-117); BUN (BLOOD UREA NITROGEN) 5 MG/DL (6-23); CALCIUM, SERUM 8.4 MG/DL (8.5-10.4); CHLORIDE, SERUM 98 MMOL/L (96-112); CO2 (CARBON DIOXIDE) 24 MMOL/L (24-34); CREATININE 0.57 MG/DL (0.55-1.02); DIRECT BILIRUBIN 0.2 MG/DL (0.0-0.4); GFR AFRICAN AMERICAN 132 ML/MIN (>=60); GFR NON AFRICAN AMERICAN 114 ML/MIN (>=60); GLUCOSE, SERUM 106 MG/DL (60-99); INDIRECT BILIRUBIN(NOT ORDER) 0.2 MG/DL (0.1-0.9); PHOSPHORUS, SERUM 2.4 MG/DL (2.5-4.5); SGOT(AST) 74 U/L (5-40); SGPT(ALT) 113 U/L (5-65); SODIUM, SERUM 135 MMOL/L (135-148); TOTAL BILIRUBIN 0.4 MG/DL (0-1.2)
[2016-07-13 06:22] LABS: LYMPHOCYTES 100 %; RBC MORPHOLOGY NORM (NORMAL); TOTAL NUCLEATED CELLS 100
[2016-07-13 11:34] LABS: CPK 43 U/L (0-200)
[2016-07-14 06:50] LABS: HEMATOCRIT 19.1 % (36.0-48.0); HEMOGLOBIN 6.3 g/dL (12.0-16.0); MEAN CORPUSCULAR HEMOGLOB 26.9 pg (26.0-34.0); MEAN CORPUSCULAR VOLUME 81.6 fL (80-100); MEAN PLATELET VOLUME 10.2 fL (9.2-13.0); PLATELET COUNT 13 10/3/uL (150-400); RBC DISTRIBUTION WIDTH 15.1 % (12.0-16.0); RED CELL COUNT 2.34 10/6/uL (4.0-5.6); WHITE BLOOD CELLS 0.1 10/3/uL (4.5-10.5)
[2016-07-14 06:52] LABS: MANUAL DIFF YES %
[2016-07-14 07:01] LABS: ALBUMIN 1.6 G/DL (3.5-5.0); BUN (BLOOD UREA NITROGEN) 5 MG/DL (6-23); CALCIUM, SERUM 8.1 MG/DL (8.5-10.4); CHLORIDE, SERUM 99 MMOL/L (96-112); CO2 (CARBON DIOXIDE) 26 MMOL/L (24-34); CREATININE 0.55 MG/DL (0.55-1.02); DIRECT BILIRUBIN 0.1 MG/DL (0.0-0.4); GFR AFRICAN AMERICAN 133 ML/MIN (>=60); GFR NON AFRICAN AMERICAN 115 ML/MIN (>=60); GLUCOSE, SERUM 113 MG/DL (60-99); INDIRECT BILIRUBIN(NOT ORDER) 0.3 MG/DL (0.1-0.9); PHOSPHORUS, SERUM 2.7 MG/DL (2.5-4.5); SGOT(AST) 44 U/L (5-40); SGPT(ALT) 79 U/L (5-65); SODIUM, SERUM 136 MMOL/L (135-148); TOTAL BILIRUBIN 0.4 MG/DL (0-1.2); TOTAL PROTEIN 6.4 G/DL (6.0-8.5)
[2016-07-14 07:02] LABS: ALKALINE PHOSPHATASE 196 U/L (45-117); POTASSIUM, SERUM 2.9 MMOL/L (3.5-5.3)
[2016-07-14 07:24] LABS: LYMPHOCYTES 90 %; LYMPHOCYTES ABSOLUTE (CALC) 0.09 10/3/uL (0.67-4.30); NEUTROPHILS ABSOLUTE (CALC) 0.01 10/3/uL (2.02-8.40); SEGMENTED NEUTROPHIL (0) 10 %; TOTAL NUCLEATED CELLS 10
[2016-07-14 07:25] LABS: RBC MORPHOLOGY NORM (NORMAL)
[2016-07-15 05:10] LABS: HEMOGLOBIN 7.5 g/dL (12.0-16.0); MEAN CORPUSCULAR HEMOGLOB 28.4 pg (26.0-34.0); MEAN CORPUSCULAR VOLUME 81.4 fL (80-100); RBC DISTRIBUTION WIDTH 14.7 % (12.0-16.0); RED CELL COUNT 2.64 10/6/uL (4.0-5.6)
[2016-07-15 05:14] LABS: HEMATOCRIT 21.5 % (36.0-48.0); MANUAL DIFF YES %; MEAN CORPUS HGB CONC 34.9 g/dL (32.0-36.0); PLATELET COUNT 9 10/3/uL (150-400); WHITE BLOOD CELLS 0.1 10/3/uL (4.5-10.5)
[2016-07-15 05:25] LABS: ALBUMIN 1.5 G/DL (3.5-5.0); BUN (BLOOD UREA NITROGEN) 6 MG/DL (6-23); CALCIUM, SERUM 8.2 MG/DL (8.5-10.4); CHLORIDE, SERUM 99 MMOL/L (96-112); CO2 (CARBON DIOXIDE) 26 MMOL/L (24-34); CREATININE 0.67 MG/DL (0.55-1.02); DIRECT BILIRUBIN 0.1 MG/DL (0.0-0.4); GFR AFRICAN AMERICAN 125 ML/MIN (>=60); GFR NON AFRICAN AMERICAN 108 ML/MIN (>=60); GLUCOSE, SERUM 118 MG/DL (60-99); INDIRECT BILIRUBIN(NOT ORDER) 0.5 MG/DL (0.1-0.9); PHOSPHORUS, SERUM 2.4 MG/DL (2.5-4.5); POTASSIUM, SERUM 3.1 MMOL/L (3.5-5.3); SGOT(AST) 30 U/L (5-40); SGPT(ALT) 59 U/L (5-65); SODIUM, SERUM 136 MMOL/L (135-148); TOTAL BILIRUBIN 0.6 MG/DL (0-1.2); TOTAL PROTEIN 6.3 G/DL (6.0-8.5)
[2016-07-15 05:29] LABS: ALKALINE PHOSPHATASE 183 U/L (45-117)
[2016-07-15 06:11] LABS: LYMPHOCYTES 90 %; LYMPHOCYTES ABSOLUTE (CALC) 0.09 10/3/uL (0.67-4.30); NEUTROPHILS ABSOLUTE (CALC) 0.01 10/3/uL (2.02-8.40); SEGMENTED NEUTROPHIL (0) 10 %; TOTAL NUCLEATED CELLS 100
[2016-07-15 06:12] LABS: SPHEROCYTES OCC (0-2/OIF)
[2016-07-16 07:06] LABS: MANUAL DIFF YES %; MEAN CORPUS HGB CONC 34.8 g/dL (32.0-36.0); MEAN CORPUSCULAR HEMOGLOB 28.4 pg (26.0-34.0); MEAN CORPUSCULAR VOLUME 81.6 fL (80-100); MEAN PLATELET VOLUME 9.5 fL (9.2-13.0); PLATELET COUNT 20 10/3/uL (150-400); RBC DISTRIBUTION WIDTH 14.7 % (12.0-16.0); RED CELL COUNT 2.82 10/6/uL (4.0-5.6); WHITE BLOOD CELLS 0.1 10/3/uL (4.5-10.5)
[2016-07-16 07:20] LABS: ALBUMIN 1.8 G/DL (3.5-5.0); ALKALINE PHOSPHATASE 210 U/L (45-117); BUN (BLOOD UREA NITROGEN) 7 MG/DL (6-23); CALCIUM, SERUM 8.7 MG/DL (8.5-10.4); CHLORIDE, SERUM 99 MMOL/L (96-112); CO2 (CARBON DIOXIDE) 25 MMOL/L (24-34); CREATININE 0.59 MG/DL (0.55-1.02); DIRECT BILIRUBIN 0.2 MG/DL (0.0-0.4); GFR AFRICAN AMERICAN 130 ML/MIN (>=60); GFR NON AFRICAN AMERICAN 112 ML/MIN (>=60); GLUCOSE, SERUM 103 MG/DL (60-99); INDIRECT BILIRUBIN(NOT ORDER) 0.3 MG/DL (0.1-0.9); PHOSPHORUS, SERUM 2.8 MG/DL (2.5-4.5); POTASSIUM, SERUM 3.1 MMOL/L (3.5-5.3); SGOT(AST) 49 U/L (5-40); SGPT(ALT) 55 U/L (5-65); SODIUM, SERUM 137 MMOL/L (135-148); TOTAL BILIRUBIN 0.5 MG/DL (0-1.2); TOTAL PROTEIN 7.2 G/DL (6.0-8.5)
[2016-07-16 07:54] LABS: BAND NEUTROPHILS 5 %; LYMPHOCYTES 64 %; LYMPHOCYTES ABSOLUTE (CALC) 0.06 10/3/uL (0.67-4.30); MONOCYTES 9 %; MONOCYTES ABSOLUTE (CALC) 0.01 10/3/uL (0.21-1.20); NEUTROPHILS ABSOLUTE (CALC) 0.03 10/3/uL (2.02-8.40); SEGMENTED NEUTROPHIL (0) 23 %; TOTAL NUCLEATED CELLS 88
[2016-07-16 07:55] LABS: RBC MORPHOLOGY NORM (NORMAL)
[2016-07-17 05:15] LABS: HEMATOCRIT 24.5 % (36.0-48.0); HEMOGLOBIN 8.5 g/dL (12.0-16.0); MANUAL DIFF YES %; MEAN CORPUS HGB CONC 34.7 g/dL (32.0-36.0); MEAN CORPUSCULAR HEMOGLOB 28.8 pg (26.0-34.0); MEAN CORPUSCULAR VOLUME 83.1 fL (80-100); MEAN PLATELET VOLUME 10.7 fL (9.2-13.0); PLATELET COUNT 19 10/3/uL (150-400); RBC DISTRIBUTION WIDTH 14.5 % (12.0-16.0); RED CELL COUNT 2.95 10/6/uL (4.0-5.6); WHITE BLOOD CELLS 0.2 10/3/uL (4.5-10.5)
[2016-07-17 05:32] LABS: ALBUMIN 1.9 G/DL (3.5-5.0); ALKALINE PHOSPHATASE 210 U/L (45-117); BUN (BLOOD UREA NITROGEN) 7 MG/DL (6-23); CHLORIDE, SERUM 98 MMOL/L (96-112); CO2 (CARBON DIOXIDE) 25 MMOL/L (24-34); DIRECT BILIRUBIN 0.2 MG/DL (0.0-0.4); GFR AFRICAN AMERICAN 129 ML/MIN (>=60); GFR NON AFRICAN AMERICAN 112 ML/MIN (>=60); GLUCOSE, SERUM 94 MG/DL (60-99); INDIRECT BILIRUBIN(NOT ORDER) 0.3 MG/DL (0.1-0.9); PHOSPHORUS, SERUM 3.3 MG/DL (2.5-4.5); POTASSIUM, SERUM 3.3 MMOL/L (3.5-5.3); SGOT(AST) 70 U/L (5-40); SGPT(ALT) 65 U/L (5-65); SODIUM, SERUM 137 MMOL/L (135-148); TOTAL BILIRUBIN 0.5 MG/DL (0-1.2); TOTAL PROTEIN 7.4 G/DL (6.0-8.5)
[2016-07-17 05:47] LABS: LYMPHOCYTES 70 %; LYMPHOCYTES ABSOLUTE (CALC) 0.14 10/3/uL (0.67-4.30); MONOCYTES 5 %; MONOCYTES ABSOLUTE (CALC) 0.01 10/3/uL (0.21-1.20); NEUTROPHILS ABSOLUTE (CALC) 0.05 10/3/uL (2.02-8.40); SEGMENTED NEUTROPHIL (0) 25 %; TOTAL NUCLEATED CELLS 100
[2016-07-17 05:48] LABS: PLATELET ESTIMATE DEC (ADEQUATE); RBC MORPHOLOGY NORM (NORMAL)
[2016-07-18 05:13] LABS: HEMATOCRIT 24.4 % (36.0-48.0); HEMOGLOBIN 8.3 g/dL (12.0-16.0); MEAN CORPUSCULAR HEMOGLOB 27.9 pg (26.0-34.0); MEAN CORPUSCULAR VOLUME 81.9 fL (80-100); RBC DISTRIBUTION WIDTH 14.6 % (12.0-16.0); RED CELL COUNT 2.98 10/6/uL (4.0-5.6)
[2016-07-18 05:15] LABS: MANUAL DIFF YES %; PLATELET COUNT 7 10/3/uL (150-400); WHITE BLOOD CELLS 0.2 10/3/uL (4.5-10.5)
[2016-07-18 05:27] LABS: ALBUMIN 1.9 G/DL (3.5-5.0); CALCIUM, SERUM 8.6 MG/DL (8.5-10.4); CHLORIDE, SERUM 97 MMOL/L (96-112); CO2 (CARBON DIOXIDE) 24 MMOL/L (24-34); CREATININE 0.75 MG/DL (0.55-1.02); DIRECT BILIRUBIN 0.1 MG/DL (0.0-0.4); GFR AFRICAN AMERICAN 113 ML/MIN (>=60); GFR NON AFRICAN AMERICAN 98 ML/MIN (>=60); GLUCOSE, SERUM 99 MG/DL (60-99); INDIRECT BILIRUBIN(NOT ORDER) 0.3 MG/DL (0.1-0.9); PHOSPHORUS, SERUM 3.2 MG/DL (2.5-4.5); SGOT(AST) 142 U/L (5-40); SGPT(ALT) 103 U/L (5-65); SODIUM, SERUM 134 MMOL/L (135-148); TOTAL BILIRUBIN 0.4 MG/DL (0-1.2)
[2016-07-18 05:31] LABS: ALKALINE PHOSPHATASE 232 U/L (45-117); BUN (BLOOD UREA NITROGEN) 14 MG/DL (6-23)
[2016-07-18 07:05] LABS: TOTAL NUCLEATED CELLS 1
[2016-07-18 07:06] LABS: LYMPHOCYTES 75 %; MONOCYTES 2 %; ROULEAUX FORMATION 2+; SEGMENTED NEUTROPHIL (0) 23 %
[2016-07-19 05:08] LABS: HEMATOCRIT 22.1 % (36.0-48.0); HEMOGLOBIN 7.6 g/dL (12.0-16.0); MEAN CORPUS HGB CONC 34.4 g/dL (32.0-36.0); MEAN CORPUSCULAR HEMOGLOB 28.3 pg (26.0-34.0); MEAN CORPUSCULAR VOLUME 82.2 fL (80-100); MEAN PLATELET VOLUME 9.2 fL (9.2-13.0); RBC DISTRIBUTION WIDTH 14.8 % (12.0-16.0); RED CELL COUNT 2.69 10/6/uL (4.0-5.6)
[2016-07-19 05:10] LABS: PLATELET COUNT 43 10/3/uL (150-400); WHITE BLOOD CELLS 0.3 10/3/uL (4.5-10.5)
[2016-07-19 05:11] LABS: MANUAL DIFF YES %
[2016-07-19 05:20] LABS: ALBUMIN 1.8 G/DL (3.5-5.0); ALKALINE PHOSPHATASE 236 U/L (45-117); BUN (BLOOD UREA NITROGEN) 17 MG/DL (6-23); CALCIUM, SERUM 8.6 MG/DL (8.5-10.4); CHLORIDE, SERUM 103 MMOL/L (96-112); CO2 (CARBON DIOXIDE) 20 MMOL/L (24-34); CREATININE 1.08 MG/DL (0.55-1.02); DIRECT BILIRUBIN 0.1 MG/DL (0.0-0.4); GFR AFRICAN AMERICAN 73 ML/MIN (>=60); GFR NON AFRICAN AMERICAN 63 ML/MIN (>=60); INDIRECT BILIRUBIN(NOT ORDER) 0.4 MG/DL (0.1-0.9); PHOSPHORUS, SERUM 2.3 MG/DL (2.5-4.5); POTASSIUM, SERUM 3.6 MMOL/L (3.5-5.3); SGOT(AST) 112 U/L (5-40); SGPT(ALT) 103 U/L (5-65); SODIUM, SERUM 136 MMOL/L (135-148); TOTAL BILIRUBIN 0.5 MG/DL (0-1.2); TOTAL PROTEIN 6.8 G/DL (6.0-8.5)
[2016-07-19 05:24] LABS: GLUCOSE, SERUM 124 MG/DL (60-99)
[2016-07-19 06:04] LABS: BAND NEUTROPHILS 10 %; LYMPHOCYTES 50 %; LYMPHOCYTES ABSOLUTE (CALC) 0.15 10/3/uL (0.67-4.30); MONOCYTES 10 %; MONOCYTES ABSOLUTE (CALC) 0.03 10/3/uL (0.21-1.20); NEUTROPHILS ABSOLUTE (CALC) 0.12 10/3/uL (2.02-8.40); PLATELET ESTIMATE DEC (ADEQUATE); RBC MORPHOLOGY NORM (NORMAL); SEGMENTED NEUTROPHIL (0) 30 %; TOTAL NUCLEATED CELLS 100
[2016-07-20 08:14] LABS: HEMOGLOBIN 7.1 g/dL (12.0-16.0); MEAN CORPUS HGB CONC 34.5 g/dL (32.0-36.0); MEAN CORPUSCULAR HEMOGLOB 29.2 pg (26.0-34.0); MEAN PLATELET VOLUME 8.9 fL (9.2-13.0); RBC DISTRIBUTION WIDTH 14.9 % (12.0-16.0); RED CELL COUNT 2.43 10/6/uL (4.0-5.6)
[2016-07-20 08:16] LABS: ALBUMIN 1.8 G/DL (3.5-5.0); ALKALINE PHOSPHATASE 269 U/L (45-117); BUN (BLOOD UREA NITROGEN) 14 MG/DL (6-23); CALCIUM, SERUM 8.2 MG/DL (8.5-10.4); CHLORIDE, SERUM 104 MMOL/L (96-112); CO2 (CARBON DIOXIDE) 23 MMOL/L (24-34); CREATININE 0.93 MG/DL (0.55-1.02); DIRECT BILIRUBIN 0.2 MG/DL (0.0-0.4); GFR AFRICAN AMERICAN 87 ML/MIN (>=60); GFR NON AFRICAN AMERICAN 75 ML/MIN (>=60); GLUCOSE, SERUM 95 MG/DL (60-99); HEMATOCRIT 20.6 % (36.0-48.0); INDIRECT BILIRUBIN(NOT ORDER) 0.2 MG/DL (0.1-0.9); MEAN CORPUSCULAR VOLUME 84.8 fL (80-100); PHOSPHORUS, SERUM 3.6 MG/DL (2.5-4.5); PLATELET COUNT 23 10/3/uL (150-400); POTASSIUM, SERUM 4.1 MMOL/L (3.5-5.3); SGOT(AST) 67 U/L (5-40); SGPT(ALT) 91 U/L (5-65); SODIUM, SERUM 137 MMOL/L (135-148); TOTAL BILIRUBIN 0.4 MG/DL (0-1.2); TOTAL PROTEIN 6.3 G/DL (6.0-8.5); WHITE BLOOD CELLS 0.3 10/3/uL (4.5-10.5)
[2016-07-20 08:17] LABS: MANUAL DIFF YES %
[2016-07-20 09:50] LABS: BAND NEUTROPHILS 8 %; BASOPHILS 2 %; BASOPHILS ABSOLUTE (CALC) 0.01 10/3/uL (0.0-0.16); LYMPHOCYTES 32 %; MONOCYTES 22 %; MONOCYTES ABSOLUTE (CALC) 0.07 10/3/uL (0.21-1.20); NEUTROPHILS ABSOLUTE (CALC) 0.13 10/3/uL (2.02-8.40); SEGMENTED NEUTROPHIL (0) 36 %; TOTAL NUCLEATED CELLS 50
[2016-07-20 09:51] LABS: HELMET CELLS OCC (0-2/OIF); POLYCHROMASIA 1+ (2-5/OIF) (0-1/OIF); TEARDROP SHAPED RBCS OCC (0-2/OIF)
[2016-07-21 06:28] LABS: MEAN CORPUS HGB CONC 33.2 g/dL (32.0-36.0); MEAN CORPUSCULAR HEMOGLOB 27.6 pg (26.0-34.0); MEAN CORPUSCULAR VOLUME 83.1 fL (80-100); MEAN PLATELET VOLUME 9.1 fL (9.2-13.0); RBC DISTRIBUTION WIDTH 14.8 % (12.0-16.0); RED CELL COUNT 2.25 10/6/uL (4.0-5.6)
[2016-07-21 06:31] LABS: ALBUMIN 1.7 G/DL (3.5-5.0); ALKALINE PHOSPHATASE 272 U/L (45-117); CALCIUM, SERUM 8.2 MG/DL (8.5-10.4); CHLORIDE, SERUM 101 MMOL/L (96-112); CO2 (CARBON DIOXIDE) 25 MMOL/L (24-34); CREATININE 0.74 MG/DL (0.55-1.02); DIRECT BILIRUBIN 0.1 MG/DL (0.0-0.4); GFR AFRICAN AMERICAN 115 ML/MIN (>=60); GFR NON AFRICAN AMERICAN 99 ML/MIN (>=60); GLUCOSE, SERUM 97 MG/DL (60-99); INDIRECT BILIRUBIN(NOT ORDER) 0.3 MG/DL (0.1-0.9); PHOSPHORUS, SERUM 3.3 MG/DL (2.5-4.5); POTASSIUM, SERUM 4.3 MMOL/L (3.5-5.3); SGOT(AST) 61 U/L (5-40); SGPT(ALT) 78 U/L (5-65); SODIUM, SERUM 136 MMOL/L (135-148); TOTAL BILIRUBIN 0.4 MG/DL (0-1.2); TOTAL PROTEIN 6.1 G/DL (6.0-8.5)
[2016-07-21 06:32] LABS: BUN (BLOOD UREA NITROGEN) 8 MG/DL (6-23)
[2016-07-21 06:38] LABS: HEMATOCRIT 18.7 % (36.0-48.0); HEMOGLOBIN 6.2 g/dL (12.0-16.0); PLATELET COUNT 15 10/3/uL (150-400); WHITE BLOOD CELLS 0.3 10/3/uL (4.5-10.5)
[2016-07-21 06:39] LABS: MANUAL DIFF YES %
[2016-07-21 07:43] LABS: BAND NEUTROPHILS 8 %; IMMATURE GRANS ABSOLUTE (CALC) 0.01 10/3/uL (0.0-0.11); LYMPHOCYTES 32 %; METAMYELOCYTES 4 %; MONOCYTES 16 %; MONOCYTES ABSOLUTE (CALC) 0.05 10/3/uL (0.21-1.20); NEUTROPHILS ABSOLUTE (CALC) 0.14 10/3/uL (2.02-8.40); NUCLEATED RED BLOOD CELLS 4 /100WBC (0); SEGMENTED NEUTROPHIL (0) 40 %; TOTAL NUCLEATED CELLS 100
[2016-07-21 07:44] LABS: RBC MORPHOLOGY NORM (NORMAL)
[2016-07-22 05:55] LABS: BASOPHILS 0 %; EOSINOPHILS 0 %; LYMPHOCYTES 30.8 %; LYMPHOCYTES ABSOLUTE 0.12 10/3/uL (0.67-4.30); MEAN CORPUS HGB CONC 34.7 g/dL (32.0-36.0); MEAN CORPUSCULAR HEMOGLOB 28.7 pg (26.0-34.0); MEAN CORPUSCULAR VOLUME 82.7 fL (80-100); MONOCYTES 33.3 %; MONOCYTES ABSOLUTE 0.13 10/3/uL (0.21-1.20); NEUTROPHILS 35.9 %; NEUTROPHILS ABSOLUTE 0.14 10/3/uL (2.02-8.40); RBC DISTRIBUTION WIDTH 14.7 % (12.0-16.0)
[2016-07-22 06:07] LABS: HEMATOCRIT 24.8 % (36.0-48.0); HEMOGLOBIN 8.6 g/dL (12.0-16.0); PLATELET COUNT 14 10/3/uL (150-400); WHITE BLOOD CELLS 0.4 10/3/uL (4.5-10.5)
[2016-07-22 06:08] LABS: ALBUMIN 1.9 G/DL (3.5-5.0); BUN (BLOOD UREA NITROGEN) 6 MG/DL (6-23); CALCIUM, SERUM 8.2 MG/DL (8.5-10.4); CHLORIDE, SERUM 102 MMOL/L (96-112); CO2 (CARBON DIOXIDE) 23 MMOL/L (24-34); CREATININE 0.64 MG/DL (0.55-1.02); DIRECT BILIRUBIN 0.2 MG/DL (0.0-0.4); GFR AFRICAN AMERICAN 127 ML/MIN (>=60); GFR NON AFRICAN AMERICAN 109 ML/MIN (>=60); GLUCOSE, SERUM 85 MG/DL (60-99); INDIRECT BILIRUBIN(NOT ORDER) 0.3 MG/DL (0.1-0.9); MANUAL DIFF YES %; PHOSPHORUS, SERUM 2.9 MG/DL (2.5-4.5); POTASSIUM, SERUM 4.1 MMOL/L (3.5-5.3); SGOT(AST) 56 U/L (5-40); SGPT(ALT) 72 U/L (5-65); SODIUM, SERUM 137 MMOL/L (135-148); TOTAL BILIRUBIN 0.5 MG/DL (0-1.2); TOTAL PROTEIN 6.6 G/DL (6.0-8.5)
[2016-07-22 06:09] LABS: ALKALINE PHOSPHATASE 258 U/L (45-117)
[2016-07-22 06:57] LABS: BAND NEUTROPHILS 15 %; LYMPHOCYTES 50 %; MONOCYTES 5 %; MONOCYTES ABSOLUTE (CALC) 0.02 10/3/uL (0.21-1.20); NEUTROPHILS ABSOLUTE (CALC) 0.18 10/3/uL (2.02-8.40); SEGMENTED NEUTROPHIL (0) 30 %; TOTAL NUCLEATED CELLS 20
[2016-07-22 06:58] LABS: RBC MORPHOLOGY NORM (NORMAL)
[2016-07-23 04:39] LABS: HEMATOCRIT 24.5 % (36.0-48.0); HEMOGLOBIN 8.3 g/dL (12.0-16.0); MEAN CORPUS HGB CONC 33.9 g/dL (32.0-36.0); MEAN CORPUSCULAR HEMOGLOB 28.5 pg (26.0-34.0); MEAN CORPUSCULAR VOLUME 84.2 fL (80-100); RBC DISTRIBUTION WIDTH 14.4 % (12.0-16.0); RED CELL COUNT 2.91 10/6/uL (4.0-5.6)
[2016-07-23 04:40] LABS: MANUAL DIFF YES %; PLATELET COUNT 6 10/3/uL (150-400); WHITE BLOOD CELLS 0.7 10/3/uL (4.5-10.5)
[2016-07-23 04:57] LABS: ALBUMIN 1.8 G/DL (3.5-5.0); ALKALINE PHOSPHATASE 252 U/L (45-117); BUN (BLOOD UREA NITROGEN) 7 MG/DL (6-23); CALCIUM, SERUM 8.8 MG/DL (8.5-10.4); CHLORIDE, SERUM 101 MMOL/L (96-112); CO2 (CARBON DIOXIDE) 22 MMOL/L (24-34); CREATININE 0.62 MG/DL (0.55-1.02); DIRECT BILIRUBIN 0.2 MG/DL (0.0-0.4); GFR AFRICAN AMERICAN 128 ML/MIN (>=60); GFR NON AFRICAN AMERICAN 110 ML/MIN (>=60); GLUCOSE, SERUM 86 MG/DL (60-99); INDIRECT BILIRUBIN(NOT ORDER) 0.4 MG/DL (0.1-0.9); PHOSPHORUS, SERUM 3.5 MG/DL (2.5-4.5); SGOT(AST) 55 U/L (5-40); SGPT(ALT) 65 U/L (5-65); SODIUM, SERUM 137 MMOL/L (135-148); TOTAL BILIRUBIN 0.6 MG/DL (0-1.2); TOTAL PROTEIN 6.7 G/DL (6.0-8.5)
[2016-07-23 05:10] LABS: BAND NEUTROPHILS 5 %; LYMPHOCYTES 35 %; LYMPHOCYTES ABSOLUTE (CALC) 0.25 10/3/uL (0.67-4.30); MONOCYTES 25 %; MONOCYTES ABSOLUTE (CALC) 0.18 10/3/uL (0.21-1.20); NEUTROPHILS ABSOLUTE (CALC) 0.28 10/3/uL (2.02-8.40); SEGMENTED NEUTROPHIL (0) 35 %; TOTAL NUCLEATED CELLS 100
[2016-07-23 05:11] LABS: PLATELET ESTIMATE DEC (ADEQUATE)
[2016-07-23 05:12] LABS: RBC MORPHOLOGY NORM (NORMAL)
[2016-07-23 12:10] LABS: RETICULOCYTE COUNT 0.3 % (0.5-2.9); RETICULOCYTE COUNT ABSOLUTE 7.5 10/3/uL (20.2-119.8)
[2016-07-24 05:23] LABS: HEMOGLOBIN 7.6 g/dL (12.0-16.0); MEAN CORPUS HGB CONC 34.5 g/dL (32.0-36.0); MEAN CORPUSCULAR HEMOGLOB 28.6 pg (26.0-34.0); MEAN CORPUSCULAR VOLUME 82.7 fL (80-100); MEAN PLATELET VOLUME 9.5 fL (9.2-13.0); RBC DISTRIBUTION WIDTH 14.1 % (12.0-16.0); RED CELL COUNT 2.66 10/6/uL (4.0-5.6)
[2016-07-24 05:24] LABS: MANUAL DIFF YES %; PLATELET COUNT 24 10/3/uL (150-400); WHITE BLOOD CELLS 0.6 10/3/uL (4.5-10.5)
[2016-07-24 05:38] LABS: ALBUMIN 1.8 G/DL (3.5-5.0); BUN (BLOOD UREA NITROGEN) 6 MG/DL (6-23); CALCIUM, SERUM 8.1 MG/DL (8.5-10.4); CHLORIDE, SERUM 101 MMOL/L (96-112); CO2 (CARBON DIOXIDE) 25 MMOL/L (24-34); CREATININE 0.54 MG/DL (0.55-1.02); DIRECT BILIRUBIN 0.2 MG/DL (0.0-0.4); GFR AFRICAN AMERICAN 134 ML/MIN (>=60); GFR NON AFRICAN AMERICAN 116 ML/MIN (>=60); GLUCOSE, SERUM 97 MG/DL (60-99); INDIRECT BILIRUBIN(NOT ORDER) 0.3 MG/DL (0.1-0.9); PHOSPHORUS, SERUM 2.9 MG/DL (2.5-4.5); POTASSIUM, SERUM 3.7 MMOL/L (3.5-5.3); SGOT(AST) 57 U/L (5-40); SGPT(ALT) 68 U/L (5-65); SODIUM, SERUM 137 MMOL/L (135-148); TOTAL BILIRUBIN 0.5 MG/DL (0-1.2); TOTAL PROTEIN 6.4 G/DL (6.0-8.5)
[2016-07-24 05:41] LABS: ALKALINE PHOSPHATASE 268 U/L (45-117)
[2016-07-24 06:19] LABS: BAND NEUTROPHILS 4 %; LYMPHOCYTES 24 %; LYMPHOCYTES ABSOLUTE (CALC) 0.14 10/3/uL (0.67-4.30); MONOCYTES 32 %; MONOCYTES ABSOLUTE (CALC) 0.19 10/3/uL (0.21-1.20); NEUTROPHILS ABSOLUTE (CALC) 0.26 10/3/uL (2.02-8.40); SEGMENTED NEUTROPHIL (0) 40 %; TOTAL NUCLEATED CELLS 25
[2016-07-24 06:20] LABS: RBC MORPHOLOGY NORM (NORMAL)
[2016-07-25 10:39] LABS: ALBUMIN 1.9 G/DL (3.5-5.0); BUN (BLOOD UREA NITROGEN) 7 MG/DL (6-23); CALCIUM, SERUM 8.4 MG/DL (8.5-10.4); CHLORIDE, SERUM 102 MMOL/L (96-112); CO2 (CARBON DIOXIDE) 24 MMOL/L (24-34); CREATININE 0.64 MG/DL (0.55-1.02); GFR AFRICAN AMERICAN 127 ML/MIN (>=60); GFR NON AFRICAN AMERICAN 109 ML/MIN (>=60); GLUCOSE, SERUM 89 MG/DL (60-99); PHOSPHORUS, SERUM 3.1 MG/DL (2.5-4.5); POTASSIUM, SERUM 3.9 MMOL/L (3.5-5.3); SGPT(ALT) 62 U/L (5-65); SODIUM, SERUM 136 MMOL/L (135-148); TOTAL BILIRUBIN 0.4 MG/DL (0-1.2); TOTAL PROTEIN 6.6 G/DL (6.0-8.5)
[2016-07-25 10:40] LABS: ALKALINE PHOSPHATASE 290 U/L (45-117); DIRECT BILIRUBIN < 0.1 MG/DL (0.0-0.4); INDIRECT BILIRUBIN(NOT ORDER) 0.3 MG/DL (0.1-0.9); SGOT(AST) 54 U/L (5-40)
[2016-07-25 10:44] LABS: HEMOGLOBIN 7.9 g/dL (12.0-16.0); MEAN CORPUSCULAR HEMOGLOB 27.1 pg (26.0-34.0); RBC DISTRIBUTION WIDTH 14.3 % (12.0-16.0); RED CELL COUNT 2.92 10/6/uL (4.0-5.6)
[2016-07-25 10:49] LABS: MEAN CORPUS HGB CONC 31.6 g/dL (32.0-36.0); MEAN CORPUSCULAR VOLUME 85.6 fL (80-100); PLATELET COUNT 23 10/3/uL (150-400); WHITE BLOOD CELLS 0.5 10/3/uL (4.5-10.5)
[2016-07-25 10:50] LABS: MANUAL DIFF YES %
[2016-07-25 11:14] LABS: BAND NEUTROPHILS 10 %; LYMPHOCYTES 20 %; MONOCYTES 15 %; MONOCYTES ABSOLUTE (CALC) 0.08 10/3/uL (0.21-1.20); NEUTROPHILS ABSOLUTE (CALC) 0.33 10/3/uL (2.02-8.40); SEGMENTED NEUTROPHIL (0) 55 %; TOTAL NUCLEATED CELLS 20
[2016-07-25 11:15] LABS: POLYCHROMASIA 1+ (2-5/OIF) (0-1/OIF)
[2016-07-26 05:12] LABS: MEAN CORPUS HGB CONC 32.8 g/dL (32.0-36.0); MEAN CORPUSCULAR HEMOGLOB 28.3 pg (26.0-34.0); MEAN CORPUSCULAR VOLUME 86.1 fL (80-100); RBC DISTRIBUTION WIDTH 14.5 % (12.0-16.0); RED CELL COUNT 2.37 10/6/uL (4.0-5.6)
[2016-07-26 05:22] LABS: ALBUMIN 1.8 G/DL (3.5-5.0); BUN (BLOOD UREA NITROGEN) 7 MG/DL (6-23); CALCIUM, SERUM 8.2 MG/DL (8.5-10.4); CHLORIDE, SERUM 101 MMOL/L (96-112); CO2 (CARBON DIOXIDE) 21 MMOL/L (24-34); GFR AFRICAN AMERICAN 137 ML/MIN (>=60); GFR NON AFRICAN AMERICAN 119 ML/MIN (>=60); GLUCOSE, SERUM 76 MG/DL (60-99); PHOSPHORUS, SERUM 3.3 MG/DL (2.5-4.5); POTASSIUM, SERUM 4.2 MMOL/L (3.5-5.3); SGOT(AST) 37 U/L (5-40); SGPT(ALT) 49 U/L (5-65); SODIUM, SERUM 137 MMOL/L (135-148); TOTAL BILIRUBIN 0.4 MG/DL (0-1.2); TOTAL PROTEIN 6.1 G/DL (6.0-8.5)
[2016-07-26 05:24] LABS: HEMATOCRIT 20.4 % (36.0-48.0); HEMOGLOBIN 6.7 g/dL (12.0-16.0); PLATELET COUNT 13 10/3/uL (150-400); WHITE BLOOD CELLS 1.1 10/3/uL (4.5-10.5)
[2016-07-26 05:26] LABS: ALKALINE PHOSPHATASE 251 U/L (45-117); DIRECT BILIRUBIN < 0.1 MG/DL (0.0-0.4); INDIRECT BILIRUBIN(NOT ORDER) 0.3 MG/DL (0.1-0.9)
[2016-07-26 05:28] LABS: MANUAL DIFF YES %
[2016-07-26 06:38] LABS: LYMPHOCYTES 22 %; LYMPHOCYTES ABSOLUTE (CALC) 0.24 10/3/uL (0.67-4.30); MONOCYTES 44 %; MONOCYTES ABSOLUTE (CALC) 0.48 10/3/uL (0.21-1.20); NEUTROPHILS ABSOLUTE (CALC) 0.37 10/3/uL (2.02-8.40); RBC MORPHOLOGY NORM (NORMAL); SEGMENTED NEUTROPHIL (0) 34 %; TOTAL NUCLEATED CELLS 50
[2016-07-27 07:44] LABS: ALBUMIN 1.7 G/DL (3.5-5.0); BUN (BLOOD UREA NITROGEN) 4 MG/DL (6-23); CALCIUM, SERUM 8.2 MG/DL (8.5-10.4); CHLORIDE, SERUM 100 MMOL/L (96-112); CREATININE 0.51 MG/DL (0.55-1.02); DIRECT BILIRUBIN 0.2 MG/DL (0.0-0.4); GFR AFRICAN AMERICAN 136 ML/MIN (>=60); GFR NON AFRICAN AMERICAN 118 ML/MIN (>=60); GLUCOSE, SERUM 88 MG/DL (60-99); INDIRECT BILIRUBIN(NOT ORDER) 0.4 MG/DL (0.1-0.9); PHOSPHORUS, SERUM 4.2 MG/DL (2.5-4.5); POTASSIUM, SERUM 3.6 MMOL/L (3.5-5.3); SGOT(AST) 28 U/L (5-40); SGPT(ALT) 39 U/L (5-65); SODIUM, SERUM 137 MMOL/L (135-148); TOTAL BILIRUBIN 0.6 MG/DL (0-1.2); TOTAL PROTEIN 5.9 G/DL (6.0-8.5)
[2016-07-27 07:45] LABS: ALKALINE PHOSPHATASE 236 U/L (45-117); CO2 (CARBON DIOXIDE) 26 MMOL/L (24-34)
[2016-07-27 07:50] LABS: BASOPHILS 0 %; EOSINOPHILS 0.9 %; EOSINOPHILS ABSOLUTE 0.01 10/3/uL (0.0-0.53); IMMATURE GRANULOCYTES 7.1 %; IMMATURE GRANULOCYTES ABSOLUTE 0.08 10/3/uL (0.0-0.11); LYMPHOCYTES 21.2 %; LYMPHOCYTES ABSOLUTE 0.24 10/3/uL (0.67-4.30); MEAN CORPUS HGB CONC 33.9 g/dL (32.0-36.0); MEAN CORPUSCULAR HEMOGLOB 28.6 pg (26.0-34.0); MEAN CORPUSCULAR VOLUME 84.3 fL (80-100); MONOCYTES 35.4 %; NEUTROPHILS 35.4 %; RBC DISTRIBUTION WIDTH 14.5 % (12.0-16.0)
[2016-07-27 07:54] LABS: HEMATOCRIT 23.6 % (36.0-48.0); PLATELET COUNT 9 10/3/uL (150-400); WHITE BLOOD CELLS 1.1 10/3/uL (4.5-10.5)
[2016-07-27 07:55] LABS: MANUAL DIFF NO %
[2016-07-27 08:15] LABS: BAND NEUTROPHILS 5 %; LYMPHOCYTES 8 %; LYMPHOCYTES ABSOLUTE (CALC) 0.09 10/3/uL (0.67-4.30); MONOCYTES 22 %; MONOCYTES ABSOLUTE (CALC) 0.24 10/3/uL (0.21-1.20); NEUTROPHILS ABSOLUTE (CALC) 0.77 10/3/uL (2.02-8.40); RBC MORPHOLOGY NORM (NORMAL); SEGMENTED NEUTROPHIL (0) 65 %; TOTAL NUCLEATED CELLS 37
[2016-07-28 07:26] LABS: HEMATOCRIT 23.8 % (36.0-48.0); HEMOGLOBIN 8.3 g/dL (12.0-16.0); MEAN CORPUS HGB CONC 34.9 g/dL (32.0-36.0); MEAN CORPUSCULAR HEMOGLOB 29.2 pg (26.0-34.0); MEAN CORPUSCULAR VOLUME 83.8 fL (80-100); MEAN PLATELET VOLUME 10.3 fL (9.2-13.0); RBC DISTRIBUTION WIDTH 14.3 % (12.0-16.0); RED CELL COUNT 2.84 10/6/uL (4.0-5.6)
[2016-07-28 07:27] LABS: PLATELET COUNT 33 10/3/uL (150-400); WHITE BLOOD CELLS 0.9 10/3/uL (4.5-10.5)
[2016-07-28 07:28] LABS: MANUAL DIFF YES %
[2016-07-28 07:41] LABS: ALBUMIN 1.8 G/DL (3.5-5.0); ALKALINE PHOSPHATASE 212 U/L (45-117); BUN (BLOOD UREA NITROGEN) 6 MG/DL (6-23); CALCIUM, SERUM 8.3 MG/DL (8.5-10.4); CHLORIDE, SERUM 100 MMOL/L (96-112); CO2 (CARBON DIOXIDE) 25 MMOL/L (24-34); CREATININE 0.44 MG/DL (0.55-1.02); DIRECT BILIRUBIN 0.1 MG/DL (0.0-0.4); GFR AFRICAN AMERICAN 143 ML/MIN (>=60); GFR NON AFRICAN AMERICAN 124 ML/MIN (>=60); GLUCOSE, SERUM 86 MG/DL (60-99); INDIRECT BILIRUBIN(NOT ORDER) 0.3 MG/DL (0.1-0.9); PHOSPHORUS, SERUM 3.9 MG/DL (2.5-4.5); POTASSIUM, SERUM 3.5 MMOL/L (3.5-5.3); SGOT(AST) 31 U/L (5-40); SGPT(ALT) 33 U/L (5-65); SODIUM, SERUM 138 MMOL/L (135-148); TOTAL BILIRUBIN 0.4 MG/DL (0-1.2); TOTAL PROTEIN 5.8 G/DL (6.0-8.5)
[2016-07-28 07:51] LABS: BAND NEUTROPHILS 1 %; LYMPHOCYTES 28 %; LYMPHOCYTES ABSOLUTE (CALC) 0.25 10/3/uL (0.67-4.30); MONOCYTES 33 %; NEUTROPHILS ABSOLUTE (CALC) 0.35 10/3/uL (2.02-8.40); RBC MORPHOLOGY NORM (NORMAL); SEGMENTED NEUTROPHIL (0) 38 %; TOTAL NUCLEATED CELLS 100
[2016-07-29 11:13] LABS: HEMOGLOBIN 8.9 g/dL (12.0-16.0); MEAN CORPUS HGB CONC 34.2 g/dL (32.0-36.0); MEAN CORPUSCULAR HEMOGLOB 29.1 pg (26.0-34.0); MEAN PLATELET VOLUME 11.2 fL (9.2-13.0); RBC DISTRIBUTION WIDTH 14.4 % (12.0-16.0); RED CELL COUNT 3.06 10/6/uL (4.0-5.6)
[2016-07-29 11:14] LABS: PLATELET COUNT 26 10/3/uL (150-400)
[2016-07-29 11:15] LABS: MANUAL DIFF YES %
[2016-07-29 11:26] LABS: BUN (BLOOD UREA NITROGEN) 5 MG/DL (6-23); CALCIUM, SERUM 8.7 MG/DL (8.5-10.4); CHLORIDE, SERUM 102 MMOL/L (96-112); CO2 (CARBON DIOXIDE) 25 MMOL/L (24-34); CREATININE 0.54 MG/DL (0.55-1.02); GFR AFRICAN AMERICAN 134 ML/MIN (>=60); GFR NON AFRICAN AMERICAN 116 ML/MIN (>=60); GLUCOSE, SERUM 103 MG/DL (60-99); POTASSIUM, SERUM 3.4 MMOL/L (3.5-5.3); SODIUM, SERUM 138 MMOL/L (135-148)
[2016-07-29 11:36] LABS: BAND NEUTROPHILS 2 %; ELLIPTOCYTES 1+ (3-10/OIF) (0-2/OIF); EOSINOPHILS 2 %; EOSINOPHILS ABSOLUTE (CALC) 0.02 10/3/uL (0.0-0.53); LYMPHOCYTES 32 %; LYMPHOCYTES ABSOLUTE (CALC) 0.32 10/3/uL (0.67-4.30); MONOCYTES 18 %; MONOCYTES ABSOLUTE (CALC) 0.18 10/3/uL (0.21-1.20); NEUTROPHILS ABSOLUTE (CALC) 0.48 10/3/uL (2.02-8.40); PLATELET ESTIMATE DEC (ADEQUATE); ROULEAUX FORMATION 1+; SEGMENTED NEUTROPHIL (0) 46 %; TOTAL NUCLEATED CELLS 100
[2016-07-29 11:37] LABS: TEARDROP SHAPED RBCS OCC (0-2/OIF)
[2016-07-30 05:00] LABS: HEMOGLOBIN 7.4 g/dL (12.0-16.0); MEAN CORPUS HGB CONC 34.3 g/dL (32.0-36.0); MEAN CORPUSCULAR HEMOGLOB 29.1 pg (26.0-34.0); MEAN PLATELET VOLUME 11.3 fL (9.2-13.0); RBC DISTRIBUTION WIDTH 14.1 % (12.0-16.0); RED CELL COUNT 2.54 10/6/uL (4.0-5.6)
[2016-07-30 05:10] LABS: HEMATOCRIT 21.6 % (36.0-48.0); MANUAL DIFF YES %; PLATELET COUNT 18 10/3/uL (150-400); WHITE BLOOD CELLS 0.9 10/3/uL (4.5-10.5)
[2016-07-30 05:15] LABS: BUN (BLOOD UREA NITROGEN) 6 MG/DL (6-23); CALCIUM, SERUM 8.2 MG/DL (8.5-10.4); CHLORIDE, SERUM 104 MMOL/L (96-112); CO2 (CARBON DIOXIDE) 26 MMOL/L (24-34); CREATININE 0.53 MG/DL (0.55-1.02); GFR AFRICAN AMERICAN 135 ML/MIN (>=60); GFR NON AFRICAN AMERICAN 116 ML/MIN (>=60); GLUCOSE, SERUM 88 MG/DL (60-99); SODIUM, SERUM 138 MMOL/L (135-148)
[2016-07-30 05:16] LABS: POTASSIUM, SERUM 4.1 MMOL/L (3.5-5.3)
[2016-07-30 05:40] LABS: EOSINOPHILS 1 %; EOSINOPHILS ABSOLUTE (CALC) 0.01 10/3/uL (0.0-0.53); LYMPHOCYTES 27 %; LYMPHOCYTES ABSOLUTE (CALC) 0.24 10/3/uL (0.67-4.30); MONOCYTES 19 %; MONOCYTES ABSOLUTE (CALC) 0.17 10/3/uL (0.21-1.20); NEUTROPHILS ABSOLUTE (CALC) 0.48 10/3/uL (2.02-8.40); SEGMENTED NEUTROPHIL (0) 53 %; TOTAL NUCLEATED CELLS 100
[2016-07-30 05:41] LABS: PLATELET ESTIMATE DEC (ADEQUATE); STOMATOCYTES 1+ (3-10/OIF) (0-2/OIF)
[2016-07-31 05:10] LABS: HEMATOCRIT 22.4 % (36.0-48.0); HEMOGLOBIN 7.6 g/dL (12.0-16.0); MEAN CORPUS HGB CONC 33.9 g/dL (32.0-36.0); MEAN CORPUSCULAR HEMOGLOB 29.1 pg (26.0-34.0); MEAN CORPUSCULAR VOLUME 85.8 fL (80-100); MEAN PLATELET VOLUME 9.6 fL (9.2-13.0); RED CELL COUNT 2.61 10/6/uL (4.0-5.6)
[2016-07-31 05:11] LABS: PLATELET COUNT 14 10/3/uL (150-400); WHITE BLOOD CELLS 1.1 10/3/uL (4.5-10.5)
[2016-07-31 05:12] LABS: MANUAL DIFF YES %
[2016-07-31 05:28] LABS: BUN (BLOOD UREA NITROGEN) 6 MG/DL (6-23); CALCIUM, SERUM 8.4 MG/DL (8.5-10.4); CHLORIDE, SERUM 104 MMOL/L (96-112); CO2 (CARBON DIOXIDE) 25 MMOL/L (24-34); CREATININE 0.57 MG/DL (0.55-1.02); GFR AFRICAN AMERICAN 132 ML/MIN (>=60); GFR NON AFRICAN AMERICAN 114 ML/MIN (>=60); GLUCOSE, SERUM 99 MG/DL (60-99); POTASSIUM, SERUM 4.3 MMOL/L (3.5-5.3); SODIUM, SERUM 137 MMOL/L (135-148)
[2016-07-31 06:22] LABS: LYMPHOCYTES 45 %; MONOCYTES 7 %; MONOCYTES ABSOLUTE (CALC) 0.08 10/3/uL (0.21-1.20); NEUTROPHILS ABSOLUTE (CALC) 0.53 10/3/uL (2.02-8.40); PLATELET ESTIMATE DEC (ADEQUATE); SEGMENTED NEUTROPHIL (0) 48 %; TOTAL NUCLEATED CELLS 100
[2016-07-31 06:23] LABS: POIKILOCYTOSIS 1+ (5-10/OIF) (0-5/OIF); SPHEROCYTES FEW (3-10/OIF)
[2016-08-01 05:15] LABS: HEMOGLOBIN 8.9 g/dL (12.0-16.0); MEAN CORPUS HGB CONC 34.4 g/dL (32.0-36.0); MEAN CORPUSCULAR HEMOGLOB 29.7 pg (26.0-34.0); MEAN CORPUSCULAR VOLUME 86.3 fL (80-100); MEAN PLATELET VOLUME 10.6 fL (9.2-13.0)
[2016-08-01 05:17] LABS: HEMATOCRIT 25.9 % (36.0-48.0); MANUAL DIFF YES %; PLATELET COUNT 13 10/3/uL (150-400); WHITE BLOOD CELLS 1.7 10/3/uL (4.5-10.5)
[2016-08-01 07:38] LABS: BAND NEUTROPHILS 3 %; EOSINOPHILS 3 %; EOSINOPHILS ABSOLUTE (CALC) 0.05 10/3/uL (0.0-0.53); LYMPHOCYTES 45 %; LYMPHOCYTES ABSOLUTE (CALC) 0.77 10/3/uL (0.67-4.30); MONOCYTES 13 %; MONOCYTES ABSOLUTE (CALC) 0.22 10/3/uL (0.21-1.20); NEUTROPHILS ABSOLUTE (CALC) 0.66 10/3/uL (2.02-8.40); SEGMENTED NEUTROPHIL (0) 36 %; TOTAL NUCLEATED CELLS 100
[2016-08-01 07:39] LABS: RBC MORPHOLOGY NORM (NORMAL)
[2016-08-01 09:26] LABS: BUN (BLOOD UREA NITROGEN) 6 MG/DL (6-23); CALCIUM, SERUM 8.5 MG/DL (8.5-10.4); CHLORIDE, SERUM 102 MMOL/L (96-112); CO2 (CARBON DIOXIDE) 24 MMOL/L (24-34); CREATININE 0.53 MG/DL (0.55-1.02); GFR AFRICAN AMERICAN 135 ML/MIN (>=60); GFR NON AFRICAN AMERICAN 116 ML/MIN (>=60); GLUCOSE, SERUM 98 MG/DL (60-99); POTASSIUM, SERUM 3.8 MMOL/L (3.5-5.3); SODIUM, SERUM 138 MMOL/L (135-148)
[2016-08-02 07:19] LABS: HEMATOCRIT 24.4 % (36.0-48.0); HEMOGLOBIN 8.5 g/dL (12.0-16.0); MEAN CORPUS HGB CONC 34.8 g/dL (32.0-36.0); MEAN CORPUSCULAR HEMOGLOB 29.1 pg (26.0-34.0); RBC DISTRIBUTION WIDTH 14.3 % (12.0-16.0); RED CELL COUNT 2.92 10/6/uL (4.0-5.6)
[2016-08-02 07:20] LABS: MANUAL DIFF YES %; MEAN CORPUSCULAR VOLUME 83.6 fL (80-100); PLATELET COUNT 10 10/3/uL (150-400); WHITE BLOOD CELLS 1.2 10/3/uL (4.5-10.5)
[2016-08-02 07:29] LABS: BUN (BLOOD UREA NITROGEN) 6 MG/DL (6-23); CALCIUM, SERUM 8.1 MG/DL (8.5-10.4); CHLORIDE, SERUM 103 MMOL/L (96-112); CO2 (CARBON DIOXIDE) 27 MMOL/L (24-34); GFR AFRICAN AMERICAN 105 ML/MIN (>=60); GFR NON AFRICAN AMERICAN 90 ML/MIN (>=60); GLUCOSE, SERUM 100 MG/DL (60-99); POTASSIUM, SERUM 3.6 MMOL/L (3.5-5.3); SODIUM, SERUM 137 MMOL/L (135-148)
[2016-08-02 07:44] LABS: BAND NEUTROPHILS 4 %; EOSINOPHILS 2 %; EOSINOPHILS ABSOLUTE (CALC) 0.02 10/3/uL (0.0-0.53); LYMPHOCYTES 38 %; LYMPHOCYTES ABSOLUTE (CALC) 0.46 10/3/uL (0.67-4.30); MONOCYTES 12 %; MONOCYTES ABSOLUTE (CALC) 0.14 10/3/uL (0.21-1.20); NEUTROPHILS ABSOLUTE (CALC) 0.58 10/3/uL (2.02-8.40); RBC MORPHOLOGY NORM (NORMAL); SEGMENTED NEUTROPHIL (0) 44 %; TOTAL NUCLEATED CELLS 50
[2016-08-02 11:29] LABS: RETICULOCYTE COUNT 2.2 % (0.5-2.9)
[2016-08-03 06:20] LABS: HEMATOCRIT 23.2 % (36.0-48.0); HEMOGLOBIN 8.1 g/dL (12.0-16.0); MEAN CORPUS HGB CONC 34.9 g/dL (32.0-36.0); MEAN CORPUSCULAR HEMOGLOB 29.6 pg (26.0-34.0); MEAN CORPUSCULAR VOLUME 84.7 fL (80-100); MEAN PLATELET VOLUME 9.9 fL (9.2-13.0); RBC DISTRIBUTION WIDTH 14.5 % (12.0-16.0); RED CELL COUNT 2.74 10/6/uL (4.0-5.6)
[2016-08-03 06:30] LABS: MANUAL DIFF YES %; PLATELET COUNT 55 10/3/uL (150-400); WHITE BLOOD CELLS 1.4 10/3/uL (4.5-10.5)
[2016-08-03 07:04] LABS: BAND NEUTROPHILS 3 %; EOSINOPHILS 3 %; EOSINOPHILS ABSOLUTE (CALC) 0.04 10/3/uL (0.0-0.53); LYMPHOCYTES 36 %; MONOCYTES 15 %; MONOCYTES ABSOLUTE (CALC) 0.21 10/3/uL (0.21-1.20); NEUTROPHILS ABSOLUTE (CALC) 0.64 10/3/uL (2.02-8.40); PLATELET ESTIMATE DEC (ADEQUATE); RBC MORPHOLOGY NORM (NORMAL); SEGMENTED NEUTROPHIL (0) 43 %; TOTAL NUCLEATED CELLS 100
[2016-08-03 08:23] LABS: BUN (BLOOD UREA NITROGEN) 4 MG/DL (6-23); CALCIUM, SERUM 8.3 MG/DL (8.5-10.4); CHLORIDE, SERUM 102 MMOL/L (96-112); CO2 (CARBON DIOXIDE) 27 MMOL/L (24-34); CREATININE 0.71 MG/DL (0.55-1.02); GFR AFRICAN AMERICAN 121 ML/MIN (>=60); GFR NON AFRICAN AMERICAN 104 ML/MIN (>=60); GLUCOSE, SERUM 92 MG/DL (60-99); POTASSIUM, SERUM 3.7 MMOL/L (3.5-5.3); SODIUM, SERUM 140 MMOL/L (135-148)
[2016-08-04 06:18] LABS: HEMATOCRIT 21.7 % (36.0-48.0); HEMOGLOBIN 7.4 g/dL (12.0-16.0); MEAN CORPUS HGB CONC 34.1 g/dL (32.0-36.0); MEAN CORPUSCULAR HEMOGLOB 29.4 pg (26.0-34.0); MEAN CORPUSCULAR VOLUME 86.1 fL (80-100); MEAN PLATELET VOLUME 10.2 fL (9.2-13.0); RED CELL COUNT 2.52 10/6/uL (4.0-5.6)
[2016-08-04 06:22] LABS: MANUAL DIFF YES %; PLATELET COUNT 43 10/3/uL (150-400); WHITE BLOOD CELLS 1.2 10/3/uL (4.5-10.5)
[2016-08-04 07:16] LABS: BASOPHILS 1 %; BASOPHILS ABSOLUTE (CALC) 0.01 10/3/uL (0.0-0.16); EOSINOPHILS 5 %; EOSINOPHILS ABSOLUTE (CALC) 0.06 10/3/uL (0.0-0.53); LYMPHOCYTES 22 %; LYMPHOCYTES ABSOLUTE (CALC) 0.22 10/3/uL (0.67-4.30); MONOCYTES 21 %; NEUTROPHILS ABSOLUTE (CALC) 0.61 10/3/uL (2.02-8.40); SEGMENTED NEUTROPHIL (0) 51 %; TOTAL NUCLEATED CELLS 100
[2016-08-04 07:17] LABS: RBC MORPHOLOGY NORM (NORMAL)
[2016-08-05 07:06] LABS: MEAN CORPUS HGB CONC 32.9 g/dL (32.0-36.0); MEAN CORPUSCULAR HEMOGLOB 28.9 pg (26.0-34.0); MEAN CORPUSCULAR VOLUME 87.9 fL (80-100); MEAN PLATELET VOLUME 10.7 fL (9.2-13.0); RBC DISTRIBUTION WIDTH 15.2 % (12.0-16.0); RED CELL COUNT 2.39 10/6/uL (4.0-5.6)
[2016-08-05 07:15] LABS: WHITE BLOOD CELLS 1.6 10/3/uL (4.5-10.5)
[2016-08-05 07:16] LABS: HEMOGLOBIN 6.9 g/dL (12.0-16.0); PLATELET COUNT 37 10/3/uL (150-400)
[2016-08-05 07:17] LABS: MANUAL DIFF YES %
[2016-08-05 07:32] LABS: BAND NEUTROPHILS 2 %; EOSINOPHILS 2 %; EOSINOPHILS ABSOLUTE (CALC) 0.03 10/3/uL (0.0-0.53); LYMPHOCYTES 32 %; LYMPHOCYTES ABSOLUTE (CALC) 0.51 10/3/uL (0.67-4.30); MONOCYTES 30 %; MONOCYTES ABSOLUTE (CALC) 0.48 10/3/uL (0.21-1.20); NEUTROPHILS ABSOLUTE (CALC) 0.58 10/3/uL (2.02-8.40); RBC MORPHOLOGY NORM (NORMAL); SEGMENTED NEUTROPHIL (0) 34 %; TOTAL NUCLEATED CELLS 100
[2016-08-05 10:00] LABS: BUN (BLOOD UREA NITROGEN) 5 MG/DL (6-23); CALCIUM, SERUM 8.4 MG/DL (8.5-10.4); CHLORIDE, SERUM 103 MMOL/L (96-112); CO2 (CARBON DIOXIDE) 25 MMOL/L (24-34); CREATININE 0.65 MG/DL (0.55-1.02); GFR AFRICAN AMERICAN 126 ML/MIN (>=60); GFR NON AFRICAN AMERICAN 109 ML/MIN (>=60); GLUCOSE, SERUM 84 MG/DL (60-99); POTASSIUM, SERUM 4.4 MMOL/L (3.5-5.3); SODIUM, SERUM 140 MMOL/L (135-148)
[2016-08-06 05:38] LABS: MEAN CORPUS HGB CONC 32.7 g/dL (32.0-36.0); MEAN CORPUSCULAR HEMOGLOB 28.1 pg (26.0-34.0); MEAN CORPUSCULAR VOLUME 86.1 fL (80-100); MEAN PLATELET VOLUME 10.1 fL (9.2-13.0); RBC DISTRIBUTION WIDTH 15.1 % (12.0-16.0)
[2016-08-06 05:39] LABS: HEMATOCRIT 25.4 % (36.0-48.0); HEMOGLOBIN 8.3 g/dL (12.0-16.0); MANUAL DIFF YES %; PLATELET COUNT 32 10/3/uL (150-400); RED CELL COUNT 2.95 10/6/uL (4.0-5.6); WHITE BLOOD CELLS 2.6 10/3/uL (4.5-10.5)
[2016-08-06 05:58] LABS: EOSINOPHILS 2 %; EOSINOPHILS ABSOLUTE (CALC) 0.05 10/3/uL (0.0-0.53); LYMPHOCYTES 43 %; LYMPHOCYTES ABSOLUTE (CALC) 1.12 10/3/uL (0.67-4.30); MONOCYTES 22 %; MONOCYTES ABSOLUTE (CALC) 0.57 10/3/uL (0.21-1.20); NEUTROPHILS ABSOLUTE (CALC) 0.86 10/3/uL (2.02-8.40); RBC MORPHOLOGY NORM (NORMAL); SEGMENTED NEUTROPHIL (0) 33 %; TOTAL NUCLEATED CELLS 100
[2016-08-07 06:32] LABS: HEMATOCRIT 27.1 % (36.0-48.0); HEMOGLOBIN 9.2 g/dL (12.0-16.0); MEAN CORPUS HGB CONC 33.9 g/dL (32.0-36.0); MEAN CORPUSCULAR HEMOGLOB 29.2 pg (26.0-34.0); MEAN PLATELET VOLUME 10.2 fL (9.2-13.0); PLATELET COUNT 27 10/3/uL (150-400); RBC DISTRIBUTION WIDTH 15.2 % (12.0-16.0); RED CELL COUNT 3.15 10/6/uL (4.0-5.6); WHITE BLOOD CELLS 1.6 10/3/uL (4.5-10.5)
[2016-08-07 06:33] LABS: MANUAL DIFF YES %
[2016-08-07 07:34] LABS: BAND NEUTROPHILS 6 %; EOSINOPHILS 1 %; EOSINOPHILS ABSOLUTE (CALC) 0.02 10/3/uL (0.0-0.53); LYMPHOCYTES 29 %; LYMPHOCYTES ABSOLUTE (CALC) 0.46 10/3/uL (0.67-4.30); MONOCYTES 16 %; MONOCYTES ABSOLUTE (CALC) 0.26 10/3/uL (0.21-1.20); NEUTROPHILS ABSOLUTE (CALC) 0.86 10/3/uL (2.02-8.40); SEGMENTED NEUTROPHIL (0) 48 %; TOTAL NUCLEATED CELLS 100
[2016-08-07 07:35] LABS: RBC MORPHOLOGY NORM (NORMAL)
[2016-08-07] MEDS ORDERED: KEPPRA500 PO (11:32)
[2016-08-07] MEDS ORDERED: KLONO2 PO (11:34)
[2016-08-07] MEDS ORDERED: FLUCON2 PO (11:35)
[2016-08-07] MEDS ORDERED: ROXICODONE15 MG PO (11:36)
[2016-08-07] MEDS ORDERED: ZOFRAN8 PO (11:39)
[2016-10-08] MEDS ORDERED: PERCOCET 10/3251 TAB PO (12:21)
[2016-11-22] MEDS ORDERED: PERCOCET 10/3251 TAB PO (13:53)
[2016-11-22] MEDS ORDERED: HABIT21 TOP (14:01)
[2016-11-22] MEDS ORDERED: CEFAZ1 IM (14:01)
[2016-11-22] MEDS ORDERED: VANCOCIN PO/LIQ (14:03)
[2016-11-22] MEDS ORDERED: T PO (14:04)
[2017-02-06] MEDS ORDERED: DEPAKOT500 PO (22:17)
[2017-02-06] MEDS ORDERED: KLONO2 PO (22:19)
[2017-02-06] MEDS ORDERED: PERCOCET 10/3251 TAB PO (22:19)
[2017-02-06] MEDS ORDERED: MARI5 PO (22:19)
[2017-02-06] MEDS ORDERED: T PO (22:20)
[2017-02-06] MEDS ORDERED: ZANTAC 150 PO (22:20)
[2017-02-07] MEDS ORDERED: NEUR300 PO (11:08)
== END 2016-08-07 16:45 | disposition home health service (06) | DRG 802 ==
LOC: ER 22:44 → 4SO 06-06 01:11 → 4EA 06-07 18:25 → IMCU 07-21 12:58 → 4EA 07-23 13:15
PROVIDERS: Internal Medicine; Internal Medicine Hematology & Oncology; Internal Medicine Infectious Disease; Nurse Practitioner
PROC: 02HV33Z Insertion of Infusion Device into Superior Vena Cava, Percutaneous Approach (ICD-10-PCS; 2016-06-07)
PROC: 4A02X4A Measurement of Cardiac Electrical Activity, Guidance, External Approach (ICD-10-PCS; 2016-06-07)
PROC: 3E03305 Introduction of Other Antineoplastic into Peripheral Vein, Percutaneous Approach (ICD-10-PCS; 2016-06-08)
PROC: 30233R0 Transfusion of Autologous Platelets into Peripheral Vein, Percutaneous Approach (ICD-10-PCS; 2016-06-10)
PROC: 30233N1 Transfusion of Nonautologous Red Blood Cells into Peripheral Vein, Percutaneous Approach (ICD-10-PCS; 2016-06-16)
PROC: 02HV33Z Insertion of Infusion Device into Superior Vena Cava, Percutaneous Approach (ICD-10-PCS; 2016-06-21)
PROC: 4A02X4A Measurement of Cardiac Electrical Activity, Guidance, External Approach (ICD-10-PCS; 2016-06-21)
PROC: 0HBDXZX Excision of Right Lower Arm Skin, External Approach, Diagnostic (ICD-10-PCS; principal; 2016-07-15)
PROC: 0HBDXZX Excision of Right Lower Arm Skin, External Approach, Diagnostic (ICD-10-PCS; 2016-07-15)
PROC: 0QB23ZX Excision of Right Pelvic Bone, Percutaneous Approach, Diagnostic (ICD-10-PCS; 2016-07-23)
DX: D70.9 Neutropenia, unspecified (principal); A41.9 Sepsis, unspecified organism; B39.9 Histoplasmosis, unspecified; C92.Z0 Other myeloid leukemia not having achieved remission; B95.5 Unspecified streptococcus as the cause of diseases classified elsewhere; R50.81 Fever presenting with conditions classified elsewhere; F17.210 Nicotine dependence, cigarettes, uncomplicated; F41.9 Anxiety disorder, unspecified; Z51.5 Encounter for palliative care; K52.89 Other specified noninfective gastroenteritis and colitis; E87.6 Hypokalemia; R74.0 Nonspecific elevation of levels of transaminase and lactic acid dehydrogenase [LDH]
CPT/HCPCS: 36415; 36569; 70487; 70491; 71010; 71260; 74176; 74177; 80048; 80053; 80074; 80076; 80164; 80200; 80202; 80305; 81001; 82550; 82570; 82607; 82728; 82746; 82962; 83540; 83550; 83605; 83615; 83735; 83935; 84100; 84132; 84145; 84300; 84439; 84443; 84484; 85025; 85045; 85610; 85652; 85730; 86140; 86850; 86900; 86901; 86920; 87015; 87040; 87045; 87046; 87046-59; 87070; 87075; 87102; 87103; 87106; 87116; 87150; 87186; 87205; 87328; 87329; 87385; 87389; 87449; 87493; 87493-59; 87496; 87641; 87804; 87880; 87899; 87899-59; 88305; 88311; 88312; 88313; 88341; 88342; 93306; 94640; 96374; 99291; A9270-GY; C1751; J0289; J0692; J0695; J0878; J1170; J1200; J1450; J1885; J1953; J2185; J2248; J2405; J2543; J2550; J3260; J3370; J9065; J9100; J9211; P9016; P9035; P9037; P9040; Q9967

== ENCOUNTER 2016-08-13 23:45 | Inpatient (IN) | payer OTHER ==
--- NOTE | ~2016-08-13 | DS ---
Discharge Summary [facility] [address] [place]. [address] NAME: RENETTA MANUEL : 71 STATUS : DIS IN PAT#: [id number] AGE: 41 ADM/REG DATE : 08/14/16 MR#: [id number] REPORT SERV DATE: 08/17/16 DICTATED BY: NOELLE FERGUSON II DATE: 08/16/16 REPORT STATUS : Draft TRANSCRIBED BY: MODL DATE: 08/16/16 ADMISSION DATE: 08/14/2016 DISCHARGE DATE: 08/16/2016 DISCHARGE DIAGNOSES: 1. Sepsis with neutropenic fever. 2. Likely urinary tract infection. 3. AML. 4. Pancytopenia. 5. Hypokalemia. 6. Seizure disorder. CONSULTS: Emiliano Alberto M.D. with [facility]. BRIEF HISTORY OF PRESENT ILLNESS: The patient is a 41-year-old female with the above history, who presented to [facility] due to fever, abdominal pain, and dysuria. She met criteria for sepsis, had a UA suspicious for infection, and was admitted under the Hospitalist Service. For detailed history and physical examination, please see Dr. Heriberto Walter's note from 04/15/2017. HOSPITAL COURSE: Her urinalysis on admission showed positive nitrites, 82 rbc's, and 11 white blood cells. WBC was 2.1, hemoglobin 9.3, and platelets 25. She was started on cefepime and vancomycin for neutropenic fever. Unfortunately, the urine culture does not appear to have been done, possibly has white blood cell count of 11, does not usually trigger urine culture. However, given her neutropenic state and symptoms of dysuria, seems probable her condition came from UTI. She has improved with antibiotics and currently stable for discharge. Blood cultures are normal. She had had a CT of the abdomen and pelvis which was done given the abdominal pain which showed finding suggestive of some chronic inflammatory condition of the colon and probably small bowel. There were fluid- filled bowel loops identified. There was no evidence of definite high-grade obstruction. There was a small amount of free fluid possibly representing some underlying exacerbation of an inflammatory event. There was also gas in the urinary bladder concerning for a bladder infection. At this point, her counts are stable, and we will discharge the patient with 7 more days of Levaquin. She has also been fairly hypokalemic, potassium in the 2's, difficult to replace, so we will start her on daily potassium replacement at home. DISCHARGE MEDICATIONS: 1. Depakote 500 mg p.o. b.i.d. 2. Diflucan 200 mg p.o. daily. 3. Neurontin 300 mg p.o. b.i.d. 4. Keppra 500 mg p.o. b.i.d. 5. Klonopin 2 mg p.o. at bedtime p.r.n. 6. Benadryl 25 mg p.o. at bedtime p.r.n. 7. Zofran 8 mg p.o. q.8 hours p.r.n. 8. Oxycodone 15 mg p.o. q.6 hours p.r.n. pain. 9. Zantac 75 mg p.o. b.i.d. p.r.n. heartburn. Discharge Summary [address] [address] NAME: RENETTA MANUEL : 71 STATUS : DIS IN PAT#: [id number] AGE: 41 ADM/REG DATE : 08/14/16 MR#: [id number] REPORT SERV DATE: 08/17/16 DICTATED BY: NOELLE FERGUSON II DATE: 08/16/16 REPORT STATUS : Draft TRANSCRIBED BY: RYAN DATE: 08/16/16 10.Levaquin 750 mg p.o. daily x3 days. 11.KCl 20 mEq p.o. DISCHARGE INSTRUCTIONS: The patient will follow with Dr. Alberto in one to two weeks. NIALL/RYAN Noelle Ferguson II, MD / [id number] CC: MD Emiliano Madsen II, IV, M.D.
--- NOTE | ~2016-08-13 | HP ---
History And Physical [address] [place]. [address] NAME: RENETTA BAI : 71 STATUS : ADM IN [facility]#: [id number] AGE: 41 ADM/REG DATE : 08/14/16 MR#: [id number] REPORT SERV DATE: 08/14/16 DICTATED BY: HERIBERTO SKELTON DATE: 08/14/16 REPORT STATUS : Draft TRANSCRIBED BY: MODL DATE: 08/14/16 DATE OF ADMISSION: 08/14/2016 CHIEF COMPLAINT: Fever and abdominal pain. HISTORY OF PRESENT ILLNESS: This is a 41-year-old female with history of AML followed by Dr. Emiliano Alberto, history of seizure disorder, pancytopenia, who presents to the emergency room at [facility] with the above-mentioned complaint. History is obtained from the patient, and reviewing data available on the [employer] system. According to Mrs. Bai, she was in her usual state of health until last , when she started having fevers and slight mild abdominal pain. She thought it was cold, but it persisted and today her temperature was greater than 104 degrees Fahrenheit and she decided to come to the emergency room. In the emergency room, indeed her temperature was 104 degrees Fahrenheit. She had a urinary tract infection, pancytopenia, hypokalemia, and a CT scan of the abdomen and pelvis done in the emergency room showed possible partial small bowel obstruction like picture. Hospitalist Service is asked to admit her for further evaluation and treatment. At the time of my evaluation, she denied any chest pain or palpitations. She had no orthopnea. She had a cough, which was essentially nonproductive, not associated with any hemoptysis, night sweats, or weight loss. She has not had any headaches, dizziness, falls, or loss of consciousness. No history of recent fevers or chills. She did not have any nausea, vomiting, diarrhea. Denied any hematemesis, hematochezia, or hematuria. She did not have any dysuria either. No history of recent travel or exposures other than those mentioned above. PAST MEDICAL HISTORY: Significant for history of recently diagnosed AML for which she had chemotherapy and is followed by Dr. Alberto. She has a history of seizure disorder as well. SOCIAL HISTORY: She has a [id number] history of smoking, which she quit at the time of her diagnosis. She denied any alcohol use or recreational drug use. FAMILY HISTORY: Noncontributory. MEDICATIONS: Her medications at home were reviewed by me in the chart today and reordered by me. REVIEW OF SYSTEMS: As in history of present illness. All other systems were reviewed in detail and are quite unremarkable. PHYSICAL EXAMINATION: GENERAL: This is a very pleasant 41-year-old female not in any acute distress. HEENT: Head is atraumatic and normocephalic. She is alert, awake, oriented to time, place, History And Physical [address] [address] NAME: RENETTA BAI : 71 STATUS : ADM IN PAT#: [id number] AGE: 41 ADM/REG DATE : 08/14/16 MR#: [id number] REPORT SERV DATE: 08/14/16 DICTATED BY: HERIBERTO SKELTON DATE: 08/14/16 REPORT STATUS : Draft TRANSCRIBED BY: RYAN DATE: 08/14/16 and person. Pupils are equal, reacting to light and accommodating. External ocular muscles are intact. Membranes are moist and pink. Sclerae are nonicteric. Dentition is poor. NECK: Supple with no jugular venous distention, lymphadenopathy, or thyromegaly. LUNGS: Clear to auscultation with no wheezes, rubs, or crackles. HEART: Heart sounds were regular with no murmurs, rubs, or gallops. ABDOMEN: Soft and nontender. Bowel sounds are present. EXTREMITIES: No cyanosis, clubbing, or edema. NEUROLOGIC: Grossly intact. No focal sensory or motor deficits. Higher functions appear intact. Gait was not examined at this time. VITAL SIGNS: Her temperature today was 104 degrees Fahrenheit, pulse upon arrival was 126, and respirations were 16 a minute, blood pressure upon arrival was 129/76. Oxygen saturations were 96% on 2 L of oxygen via nasal cannula. LABORATORY AND DIAGNOSTIC DATA: Films of the CT scan of her abdomen and pelvis done in the emergency room was reviewed and interpreted by me, official Radiology comments were also reviewed. There is partial small bowel obstruction pattern seen with air and fluid levels. A 12-lead EKG done in the emergency room was reviewed and interpreted by me. There is sinus tachycardia at a rate of [address]ations or depressions. There is QT prolongation. IMPRESSION: 1. Febrile illness with a fever of 104. 2. Urinary tract infection. 3. Pancytopenia. 4. Hypokalemia. 5. 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 6. Abdominal pain with partial small bowel obstruction versus constipation. 7. Seizure disorder. PLAN: We will admit Mrs. Bai to the Hospitalist Service with telemetry for close monitoring. After cultures are drawn, we will start her on empiric IV antibiotics. We will start her on vanc and cefepime intravenously. We will replace potassium. Follow chemistry, electrolytes, and continue replacement as per protocol. We will go ahead and consult Dr. Alberto to see her in the morning. She does admit to having constipation and does not want any laxative as it upsets her. She says Loterity works for her. We will place her on SCDs for DVT prophylaxis due to her thrombocytopenia as well. We will continue all other medications and treatments. Please see today's orders for details. I have discussed the above plans with the patient. Her questions were answered and she is agreeable to the above recommendations. Hospitalist Service will be following her during her stay here. /RYAN History And Physical [address] [address] NAME: RENETTA BAI : 71 STATUS : ADM IN [facility]#: [id number] AGE: 41 ADM/REG DATE : 08/14/16 MR#: [id number] REPORT SERV DATE: 08/14/16 DICTATED BY: HERIBERTO SKELTON DATE: 08/14/16 REPORT STATUS : Draft TRANSCRIBED BY: RYAN DATE: 08/14/16 Heriberto Skelton M.D. / [id number] CC: MD Emiliano Diego IV, M.D.
[~2016-08-13 23:45] MED LIST changes: +BEN25 PO; +DEPAKOT500 PO; +FLUCON2 PO; +NEUR300 PO; +ROXICODONE15 MG PO; +ZANTAC 75 PO; +ZOFRAN8 PO
[2016-08-14 00:46] LABS: BASOPHILS 0 %; EOSINOPHILS 1.9 %; EOSINOPHILS ABSOLUTE 0.04 10/3/uL (0.0-0.53); HEMOGLOBIN 9.3 g/dL (12.0-16.0); IMMATURE GRANULOCYTES 0.5 %; IMMATURE GRANULOCYTES ABSOLUTE 0.01 10/3/uL (0.0-0.11); LYMPHOCYTES 17.8 %; LYMPHOCYTES ABSOLUTE 0.38 10/3/uL (0.67-4.30); MEAN CORPUS HGB CONC 34.4 g/dL (32.0-36.0); MEAN CORPUSCULAR HEMOGLOB 29.1 pg (26.0-34.0); MEAN CORPUSCULAR VOLUME 84.4 fL (80-100); MONOCYTES 17.3 %; MONOCYTES ABSOLUTE 0.37 10/3/uL (0.21-1.20); NEUTROPHILS 62.5 %; NEUTROPHILS ABSOLUTE 1.34 10/3/uL (2.02-8.40); RBC DISTRIBUTION WIDTH 15.5 % (12.0-16.0)
[2016-08-14 00:53] LABS: INTERNATIONAL NORMAL RATI 1.2 UNITS (-); PARTIAL THROMBO TIME 37.2 SEC (22.5-37.2); PROTIME (NOT ORD) 14.6 SEC (12.0-14.5)
[2016-08-14 00:57] LABS: ER CBC TAT 0 Hrs 19 Mins; PLATELET COUNT 25 10/3/uL (150-400); WHITE BLOOD CELLS 2.1 10/3/uL (4.5-10.5)
[2016-08-14 00:58] LABS: MANUAL DIFF NO %
[2016-08-14 01:03] LABS: ALBUMIN 2.2 G/DL (3.5-5.0); ALKALINE PHOSPHATASE 217 U/L (45-117); BUN (BLOOD UREA NITROGEN) 8 MG/DL (6-23); CALCIUM, SERUM 7.9 MG/DL (8.5-10.4); CHEST PAIN PROFILE TAT 0 Hrs 25 Mins; CHLORIDE, SERUM 93 MMOL/L (96-112); CO2 (CARBON DIOXIDE) 30 MMOL/L (24-34); CREATININE 0.75 MG/DL (0.55-1.02); DIRECT BILIRUBIN 0.1 MG/DL (0.0-0.4); GFR AFRICAN AMERICAN 113 ML/MIN (>=60); GFR NON AFRICAN AMERICAN 98 ML/MIN (>=60); GLUCOSE, SERUM 101 MG/DL (60-99); INDIRECT BILIRUBIN(NOT ORDER) 0.2 MG/DL (0.1-0.9); POTASSIUM, SERUM 2.5 MMOL/L (3.5-5.3); SGOT(AST) 19 U/L (5-40); SGPT(ALT) 14 U/L (5-65); SODIUM, SERUM 133 MMOL/L (135-148); TOTAL BILIRUBIN 0.3 MG/DL (0-1.2); TOTAL PROTEIN 6.6 G/DL (6.0-8.5); TROPONIN I 0.03 NG/ML (<0.05)
[2016-08-14 01:04] LABS: ASCORBIC ACID (UR NOT ORDER) NEG (NEG); BILIRUBIN, URINE NEGATIVE (NEG); ER URINALYSIS TAT 0 Hrs 11 Mins; KETONE, URINE NEGATIVE (NEG); LEUKOCYTE ESTERASE(NOT OR NEG (NEG); WBC (NOT ORDERED) (RFLEX) 11 (0-5)
[2016-08-14 01:10] LABS: INFLUENZA A SCREEN NEGATIVE (NEGATIVE); INFLUENZA B SCREEN NEGATIVE (NEGATIVE)
[2016-08-14 01:10] LABS: NITRITE (URINE) POS (NEG)
[2016-08-14 01:10] LABS: LACTATE 1.1 MMOL/L (0.3-2.4)
[2016-08-14 01:13] LABS: GIANT PLATELET FEW; RBC MORPHOLOGY NORM (NORMAL)
[2016-08-14] MEDS ORDERED: DEPAKOT500 PO (01:47)
[2016-08-14] MEDS ORDERED: BEN25 PO (01:47)
[2016-08-14] MEDS ORDERED: KLONO2 PO (01:47)
[2016-08-14] MEDS ORDERED: NEUR300 PO (01:51)
[2016-08-14] MEDS ORDERED: FLUCON2 PO (01:51)
[2016-08-14] MEDS ORDERED: ZOFRAN8 PO (01:52)
[2016-08-14] MEDS ORDERED: KEPPRA500 PO (01:52)
[2016-08-14] MEDS ORDERED: ROXICODONE15 MG PO (01:53)
[2016-08-14] MEDS ORDERED: ZANTAC 75 PO (01:53)
[2016-08-14 07:03] LABS: HEMOGLOBIN 7.7 g/dL (12.0-16.0); MEAN CORPUS HGB CONC 34.7 g/dL (32.0-36.0); MEAN CORPUSCULAR HEMOGLOB 29.6 pg (26.0-34.0); MEAN CORPUSCULAR VOLUME 85.4 fL (80-100)
[2016-08-14 07:07] LABS: HEMATOCRIT 22.2 % (36.0-48.0); MANUAL DIFF YES %; PLATELET COUNT 24 10/3/uL (150-400); WHITE BLOOD CELLS 1.9 10/3/uL (4.5-10.5)
[2016-08-14 07:12] LABS: BUN (BLOOD UREA NITROGEN) 8 MG/DL (6-23); CALCIUM, SERUM 7.7 MG/DL (8.5-10.4); CHLORIDE, SERUM 98 MMOL/L (96-112); CO2 (CARBON DIOXIDE) 27 MMOL/L (24-34); CREATININE 0.67 MG/DL (0.55-1.02); GFR AFRICAN AMERICAN 125 ML/MIN (>=60); GFR NON AFRICAN AMERICAN 108 ML/MIN (>=60); GLUCOSE, SERUM 108 MG/DL (60-99); PHOSPHORUS, SERUM 4.2 MG/DL (2.5-4.5); SODIUM, SERUM 137 MMOL/L (135-148)
[2016-08-14 07:13] LABS: POTASSIUM, SERUM 2.5 MMOL/L (3.5-5.3)
[2016-08-14 07:25] LABS: BASOPHILS 1 %; BASOPHILS ABSOLUTE (CALC) 0.02 10/3/uL (0.0-0.16); LYMPHOCYTES 21 %; MONOCYTES 9 %; MONOCYTES ABSOLUTE (CALC) 0.17 10/3/uL (0.21-1.20); NEUTROPHILS ABSOLUTE (CALC) 1.31 10/3/uL (2.02-8.40); RBC MORPHOLOGY NORM (NORMAL); SEGMENTED NEUTROPHIL (0) 69 %; TOTAL NUCLEATED CELLS 100
[2016-08-14 13:30] LABS: AMPHETAMINES (NOT ORD) NEG (NEG); BARBITURATES (NOT ORDERED NEG (NEG); BENZODIAZEPINES (NOT ORD) NEG (NEG); CANNABINOIDS (THC) POS (NEG); COCAINE (NOT ORDERED) NEG (NEG); OPIATES NEG (NEG); PHENCYCLIDINE(PCP) NEG (NEG); TRICYCLICS NEG (NEG)
[2016-08-15 06:51] LABS: BASOPHILS 0.4 %; BASOPHILS ABSOLUTE 0.01 10/3/uL (0.0-0.16); EOSINOPHILS 3.1 %; EOSINOPHILS ABSOLUTE 0.07 10/3/uL (0.0-0.53); HEMATOCRIT 23.2 % (36.0-48.0); HEMOGLOBIN 7.9 g/dL (12.0-16.0); IMMATURE GRANULOCYTES 0.4 %; IMMATURE GRANULOCYTES ABSOLUTE 0.01 10/3/uL (0.0-0.11); LYMPHOCYTES 23.9 %; LYMPHOCYTES ABSOLUTE 0.54 10/3/uL (0.67-4.30); MEAN CORPUS HGB CONC 34.1 g/dL (32.0-36.0); MEAN CORPUSCULAR HEMOGLOB 28.9 pg (26.0-34.0); MEAN PLATELET VOLUME 9.9 fL (9.2-13.0); MONOCYTES 17.3 %; MONOCYTES ABSOLUTE 0.39 10/3/uL (0.21-1.20); NEUTROPHILS 54.9 %; NEUTROPHILS ABSOLUTE 1.24 10/3/uL (2.02-8.40); RBC DISTRIBUTION WIDTH 16.3 % (12.0-16.0); RED CELL COUNT 2.73 10/6/uL (4.0-5.6)
[2016-08-15 06:56] LABS: PLATELET COUNT 25 10/3/uL (150-400); WHITE BLOOD CELLS 2.3 10/3/uL (4.5-10.5)
[2016-08-15 06:57] LABS: MANUAL DIFF NO %
[2016-08-15 06:58] LABS: BUN (BLOOD UREA NITROGEN) 5 MG/DL (6-23); CALCIUM, SERUM 7.9 MG/DL (8.5-10.4); CHLORIDE, SERUM 100 MMOL/L (96-112); CO2 (CARBON DIOXIDE) 28 MMOL/L (24-34); CREATININE 0.51 MG/DL (0.55-1.02); GFR AFRICAN AMERICAN 136 ML/MIN (>=60); GFR NON AFRICAN AMERICAN 118 ML/MIN (>=60); SODIUM, SERUM 141 MMOL/L (135-148)
[2016-08-15 07:01] LABS: GLUCOSE, SERUM 86 MG/DL (60-99); POTASSIUM, SERUM 2.5 MMOL/L (3.5-5.3)
[2016-08-15 07:11] LABS: RBC MORPHOLOGY NORM (NORMAL)
[2016-08-16 04:37] LABS: BASOPHILS 0.5 %; BASOPHILS ABSOLUTE 0.01 10/3/uL (0.0-0.16); EOSINOPHILS 4.1 %; EOSINOPHILS ABSOLUTE 0.09 10/3/uL (0.0-0.53); HEMOGLOBIN 7.9 g/dL (12.0-16.0); IMMATURE GRANULOCYTES 0.9 %; IMMATURE GRANULOCYTES ABSOLUTE 0.02 10/3/uL (0.0-0.11); LYMPHOCYTES 19.9 %; LYMPHOCYTES ABSOLUTE 0.44 10/3/uL (0.67-4.30); MEAN CORPUS HGB CONC 34.3 g/dL (32.0-36.0); MEAN CORPUSCULAR HEMOGLOB 29.7 pg (26.0-34.0); MEAN CORPUSCULAR VOLUME 86.5 fL (80-100); MEAN PLATELET VOLUME 9.5 fL (9.2-13.0); MONOCYTES 19.9 %; MONOCYTES ABSOLUTE 0.44 10/3/uL (0.21-1.20); NEUTROPHILS 54.7 %; NEUTROPHILS ABSOLUTE 1.21 10/3/uL (2.02-8.40); RBC DISTRIBUTION WIDTH 16.6 % (12.0-16.0); RED CELL COUNT 2.66 10/6/uL (4.0-5.6)
[2016-08-16 04:41] LABS: BUN (BLOOD UREA NITROGEN) 5 MG/DL (6-23); CALCIUM, SERUM 7.8 MG/DL (8.5-10.4); CHLORIDE, SERUM 101 MMOL/L (96-112); CO2 (CARBON DIOXIDE) 25 MMOL/L (24-34); CREATININE 0.56 MG/DL (0.55-1.02); GFR AFRICAN AMERICAN 132 ML/MIN (>=60); GFR NON AFRICAN AMERICAN 114 ML/MIN (>=60); SODIUM, SERUM 139 MMOL/L (135-148); VANCOMYCIN TROUGH 22.8 MCG/ML (10.0-20.0)
[2016-08-16 04:44] LABS: MANUAL DIFF NO %; PLATELET COUNT 35 10/3/uL (150-400); WHITE BLOOD CELLS 2.2 10/3/uL (4.5-10.5)
[2016-08-16 04:48] LABS: GLUCOSE, SERUM 108 MG/DL (60-99); POTASSIUM, SERUM 2.9 MMOL/L (3.5-5.3)
[2016-08-16 06:19] LABS: PLATELET ESTIMATE DEC (ADEQUATE)
[2016-08-16 06:20] LABS: RBC MORPHOLOGY NORM (NORMAL)
[2016-08-16] MEDS ORDERED: LEVAQUIN750 MG PO (16:08)
[2016-08-16] MEDS ORDERED: KDUR20 PO (16:09)
[2016-10-08] MEDS ORDERED: PERCOCET 10/3251 TAB PO (12:21)
[2016-11-22] MEDS ORDERED: PERCOCET 10/3251 TAB PO (13:53)
[2016-11-22] MEDS ORDERED: CEFAZ1 IM (14:01)
[2016-11-22] MEDS ORDERED: HABIT21 TOP (14:01)
[2016-11-22] MEDS ORDERED: VANCOCIN PO/LIQ (14:03)
[2016-11-22] MEDS ORDERED: T PO (14:04)
[2017-02-06] MEDS ORDERED: DEPAKOT500 PO (22:17)
[2017-02-06] MEDS ORDERED: KLONO2 PO (22:19)
[2017-02-06] MEDS ORDERED: PERCOCET 10/3251 TAB PO (22:19)
[2017-02-06] MEDS ORDERED: MARI5 PO (22:19)
[2017-02-06] MEDS ORDERED: T PO (22:20)
[2017-02-06] MEDS ORDERED: ZANTAC 150 PO (22:20)
[2017-02-07] MEDS ORDERED: NEUR300 PO (11:08)
== END 2016-08-16 17:50 | disposition home or self-care (01) | DRG 871 ==
LOC: ER 23:45 → 7NO 08-14 02:22
PROVIDERS: Emergency Medicine; Internal Medicine; Internal Medicine Hematology & Oncology; Internal Medicine Pulmonary Disease
DX: A41.9 Sepsis, unspecified organism (principal); D61.810 Antineoplastic chemotherapy induced pancytopenia; C92.Z0 Other myeloid leukemia not having achieved remission; N39.0 Urinary tract infection, site not specified; E87.6 Hypokalemia; G40.909 Epilepsy, unspecified, not intractable, without status epilepticus; R50.81 Fever presenting with conditions classified elsewhere; K52.9 Noninfective gastroenteritis and colitis, unspecified; F19.10 Other psychoactive substance abuse, uncomplicated; Z87.891 Personal history of nicotine dependence; Z87.440 Personal history of urinary (tract) infections; K59.00 Constipation, unspecified; T45.1X5A Adverse effect of antineoplastic and immunosuppressive drugs, initial encounter
CPT/HCPCS: 71010; 74176; 80048; 80076; 80202; 80305; 81001; 83605; 83690; 83735; 84100; 84145; 84484; 85025; 85610; 85730; 87040; 87804; 93005; 96374; 99285; A9270-GY; J0692; J2405; J2550; J3370

== ENCOUNTER 2016-08-20 19:20 | Emergency (ER) | payer OTHER ==
[~2016-08-20 19:20] MED LIST changes: +KDUR20 PO; +LEVAQUIN750 MG PO
[2016-08-20 19:56] LABS: BASOPHILS 0.3 %; BASOPHILS ABSOLUTE 0.01 10/3/uL (0.0-0.16); EOSINOPHILS 2.4 %; EOSINOPHILS ABSOLUTE 0.07 10/3/uL (0.0-0.53); ER CBC TAT 0 Hrs 05 Mins; IMMATURE GRANULOCYTES 0.7 %; IMMATURE GRANULOCYTES ABSOLUTE 0.02 10/3/uL (0.0-0.11); LYMPHOCYTES 20.9 %; MEAN CORPUS HGB CONC 33.3 g/dL (32.0-36.0); MEAN CORPUSCULAR HEMOGLOB 28.9 pg (26.0-34.0); MEAN CORPUSCULAR VOLUME 86.6 fL (80-100); MEAN PLATELET VOLUME 10.4 fL (9.2-13.0); MONOCYTES 10.5 %; NEUTROPHILS 65.2 %; NEUTROPHILS ABSOLUTE 1.87 10/3/uL (2.02-8.40); RBC DISTRIBUTION WIDTH 17.1 % (12.0-16.0); WHITE BLOOD CELLS 2.9 10/3/uL (4.5-10.5)
[2016-08-20 20:09] LABS: HEMOGLOBIN 9.5 g/dL (12.0-16.0); RED CELL COUNT 3.29 10/6/uL (4.0-5.6)
[2016-08-20 20:10] LABS: HEMATOCRIT 28.5 % (36.0-48.0); MANUAL DIFF NO %; PLATELET COUNT 53 10/3/uL (150-400)
[2016-08-20 20:11] LABS: A/G RATIO 0.5 (0.7-1.9); ALBUMIN 2.4 G/DL (3.5-5.0); ALKALINE PHOSPHATASE 216 U/L (45-117); BUN (BLOOD UREA NITROGEN) 5 MG/DL (6-23); CALCIUM, SERUM 8.4 MG/DL (8.5-10.4); CHLORIDE, SERUM 96 MMOL/L (96-112); CO2 (CARBON DIOXIDE) 28 MMOL/L (24-34); CREATININE 0.75 MG/DL (0.55-1.02); GFR AFRICAN AMERICAN 113 ML/MIN (>=60); GFR NON AFRICAN AMERICAN 98 ML/MIN (>=60); GLOBULIN 5.1 G/DL (2.5-4.1); GLUCOSE, SERUM 124 MG/DL (60-99); POTASSIUM, SERUM 2.8 MMOL/L (3.5-5.3); SGOT(AST) 25 U/L (5-40); SGPT(ALT) 19 U/L (5-65); SODIUM, SERUM 134 MMOL/L (135-148); TOTAL BILIRUBIN 0.2 MG/DL (0-1.2); TOTAL PROTEIN 7.5 G/DL (6.0-8.5)
[2016-08-20 20:26] LABS: PLATELET ESTIMATE DEC (ADEQUATE)
[2016-08-20 20:27] LABS: RBC MORPHOLOGY NORM (NORMAL)
[2016-10-08] MEDS ORDERED: PERCOCET 10/3251 TAB PO (12:21)
[2016-11-22] MEDS ORDERED: PERCOCET 10/3251 TAB PO (13:53)
[2016-11-22] MEDS ORDERED: CEFAZ1 IM (14:01)
[2016-11-22] MEDS ORDERED: HABIT21 TOP (14:01)
[2016-11-22] MEDS ORDERED: VANCOCIN PO/LIQ (14:03)
[2016-11-22] MEDS ORDERED: T PO (14:04)
[2017-02-06] MEDS ORDERED: DEPAKOT500 PO (22:17)
[2017-02-06] MEDS ORDERED: KLONO2 PO (22:19)
[2017-02-06] MEDS ORDERED: MARI5 PO (22:19)
[2017-02-06] MEDS ORDERED: PERCOCET 10/3251 TAB PO (22:19)
[2017-02-06] MEDS ORDERED: ZANTAC 150 PO (22:20)
[2017-02-06] MEDS ORDERED: T PO (22:20)
[2017-02-07] MEDS ORDERED: NEUR300 PO (11:08)
== END 2016-08-20 22:57 | disposition home or self-care (01) ==
LOC: ER 19:20
PROVIDERS: Specialist
DX: R53.1 Weakness (principal); D61.818 Other pancytopenia; E87.6 Hypokalemia; C92.Z0 Other myeloid leukemia not having achieved remission; K21.9 Gastro-esophageal reflux disease without esophagitis; Z88.1 Allergy status to other antibiotic agents; Z79.899 Other long term (current) drug therapy
CPT/HCPCS: 71020; 80053; 85025; 87040; 99285; A9270-GY

== ENCOUNTER 2016-09-09 23:45 | Emergency (ER) | payer OTHER ==
[2016-09-10 01:13] LABS: BASOPHILS 0.2 %; BASOPHILS ABSOLUTE 0.01 10/3/uL (0.0-0.16); EOSINOPHILS 1.1 %; EOSINOPHILS ABSOLUTE 0.06 10/3/uL (0.0-0.53); ER CBC TAT 0 Hrs 08 Mins; HEMATOCRIT 31.4 % (36.0-48.0); HEMOGLOBIN 10.3 g/dL (12.0-16.0); IMMATURE GRANULOCYTES 0.2 %; IMMATURE GRANULOCYTES ABSOLUTE 0.01 10/3/uL (0.0-0.11); LYMPHOCYTES ABSOLUTE 0.64 10/3/uL (0.67-4.30); MANUAL DIFF NO %; MEAN CORPUS HGB CONC 32.8 g/dL (32.0-36.0); MEAN CORPUSCULAR HEMOGLOB 29.7 pg (26.0-34.0); MEAN CORPUSCULAR VOLUME 90.5 fL (80-100); MEAN PLATELET VOLUME 9.7 fL (9.2-13.0); MONOCYTES 5.4 %; MONOCYTES ABSOLUTE 0.29 10/3/uL (0.21-1.20); NEUTROPHILS 81.1 %; NEUTROPHILS ABSOLUTE 4.32 10/3/uL (2.02-8.40); PLATELET COUNT 114 10/3/uL (150-400); RBC DISTRIBUTION WIDTH 17.7 % (12.0-16.0); RED CELL COUNT 3.47 10/6/uL (4.0-5.6); WHITE BLOOD CELLS 5.3 10/3/uL (4.5-10.5)
[2016-09-10 01:28] LABS: CHLORIDE, SERUM 98 MMOL/L (96-112); CREATININE 0.89 MG/DL (0.55-1.02); GFR AFRICAN AMERICAN 92 ML/MIN (>=60); GFR NON AFRICAN AMERICAN 79 ML/MIN (>=60); GLUCOSE, SERUM 102 MG/DL (60-99); SGOT(AST) 24 U/L (5-40); SGPT(ALT) 39 U/L (5-65); SODIUM, SERUM 131 MMOL/L (135-148); TOTAL BILIRUBIN 0.4 MG/DL (0-1.2); TOTAL PROTEIN 8.7 G/DL (6.0-8.5)
[2016-09-10 01:31] LABS: A/G RATIO 0.6 (0.7-1.9); ALBUMIN 3.3 G/DL (3.5-5.0); ALKALINE PHOSPHATASE 273 U/L (45-117); BUN (BLOOD UREA NITROGEN) 15 MG/DL (6-23); CALCIUM, SERUM 9.8 MG/DL (8.5-10.4); CO2 (CARBON DIOXIDE) 23 MMOL/L (24-34); GLOBULIN 5.4 G/DL (2.5-4.1); POTASSIUM, SERUM 3.4 MMOL/L (3.5-5.3)
[2016-09-10 01:37] LABS: EOSINOPHILS 3 %; EOSINOPHILS ABSOLUTE (CALC) 0.16 10/3/uL (0.0-0.53); ER DIFF TAT 0 Hrs 32 Mins; LYMPHOCYTES 11 %; LYMPHOCYTES ABSOLUTE (CALC) 0.58 10/3/uL (0.67-4.30); MONOCYTES 2 %; MONOCYTES ABSOLUTE (CALC) 0.11 10/3/uL (0.21-1.20); NEUTROPHILS ABSOLUTE (CALC) 4.45 10/3/uL (2.02-8.40); SEGMENTED NEUTROPHIL (0) 84 %; TOTAL NUCLEATED CELLS 100
[2016-09-10 01:39] LABS: ANISOCYTOSIS 1+ (5-10/OIF) (0-5/OIF); PLATELET ESTIMATE SLT DEC (ADEQUATE); RBC MORPHOLOGY ABN (NORMAL)
[2016-10-08] MEDS ORDERED: PERCOCET 10/3251 TAB PO (12:21)
[2016-11-22] MEDS ORDERED: PERCOCET 10/3251 TAB PO (13:53)
[2016-11-22] MEDS ORDERED: CEFAZ1 IM (14:01)
[2016-11-22] MEDS ORDERED: HABIT21 TOP (14:01)
[2016-11-22] MEDS ORDERED: VANCOCIN PO/LIQ (14:03)
[2016-11-22] MEDS ORDERED: T PO (14:04)
[2017-02-06] MEDS ORDERED: DEPAKOT500 PO (22:17)
[2017-02-06] MEDS ORDERED: MARI5 PO (22:19)
[2017-02-06] MEDS ORDERED: KLONO2 PO (22:19)
[2017-02-06] MEDS ORDERED: PERCOCET 10/3251 TAB PO (22:19)
[2017-02-06] MEDS ORDERED: T PO (22:20)
[2017-02-06] MEDS ORDERED: ZANTAC 150 PO (22:20)
[2017-02-07] MEDS ORDERED: NEUR300 PO (11:08)
== END 2016-09-10 03:08 | disposition home or self-care (01) ==
LOC: ER 23:45
PROVIDERS: Specialist
DX: J40 Bronchitis, not specified as acute or chronic (principal); C92.Z0 Other myeloid leukemia not having achieved remission; F17.200 Nicotine dependence, unspecified, uncomplicated; K21.9 Gastro-esophageal reflux disease without esophagitis; Z88.1 Allergy status to other antibiotic agents; Z79.899 Other long term (current) drug therapy
CPT/HCPCS: 71020; 80053; 85025; 87040; 99284; A9270-GY

== ENCOUNTER 2016-10-09 08:04 | Day surgery (SDC) | payer OTHER ==
[~2016-10-09 08:04] MED LIST changes: +PERCOCET 10/3251 TAB PO
[2016-10-09 08:49] LABS: BASOPHILS 0 %; EOSINOPHILS 3.6 %; EOSINOPHILS ABSOLUTE 0.09 10/3/uL (0.0-0.53); HEMOGLOBIN 11.2 g/dL (12.0-16.0); LYMPHOCYTES 29.2 %; LYMPHOCYTES ABSOLUTE 0.73 10/3/uL (0.67-4.30); MEAN CORPUS HGB CONC 31.9 g/dL (32.0-36.0); MEAN CORPUSCULAR HEMOGLOB 31.5 pg (26.0-34.0); MONOCYTES 7.6 %; MONOCYTES ABSOLUTE 0.19 10/3/uL (0.21-1.20); NEUTROPHILS 59.6 %; NEUTROPHILS ABSOLUTE 1.49 10/3/uL (2.02-8.40); RBC DISTRIBUTION WIDTH 15.7 % (12.0-16.0); RED CELL COUNT 3.56 10/6/uL (4.0-5.6)
[2016-10-09 08:51] LABS: HEMATOCRIT 35.1 % (36.0-48.0); MANUAL DIFF NO %; MEAN CORPUSCULAR VOLUME 98.6 fL (80-100); PLATELET COUNT 58 10/3/uL (150-400); RETICULOCYTE COUNT 2.7 % (0.5-2.5); RETICULOCYTE COUNT ABSOLUTE 95.4 10/3/uL (20.2-119.8); WHITE BLOOD CELLS 2.5 10/3/uL (4.5-10.5)
[2016-10-09 09:00] LABS: BUN (BLOOD UREA NITROGEN) 13 MG/DL (6-23); CALCIUM, SERUM 8.9 MG/DL (8.5-10.4); CHLORIDE, SERUM 108 MMOL/L (96-112); CO2 (CARBON DIOXIDE) 27 MMOL/L (24-34); CREATININE 0.72 MG/DL (0.55-1.02); GFR AFRICAN AMERICAN 119 ML/MIN (>=60); GFR NON AFRICAN AMERICAN 103 ML/MIN (>=60); GLUCOSE, SERUM 90 MG/DL (60-99); POTASSIUM, SERUM 3.9 MMOL/L (3.5-5.3); SODIUM, SERUM 140 MMOL/L (135-148)
[2016-10-09 09:09] LABS: PLATELET ESTIMATE DEC (ADEQUATE)
[2016-10-09 09:10] LABS: POLYCHROMASIA 1+ (2-5/OIF) (0-1/OIF)
[2016-11-22] MEDS ORDERED: PERCOCET 10/3251 TAB PO (13:53)
[2016-11-22] MEDS ORDERED: CEFAZ1 IM (14:01)
[2016-11-22] MEDS ORDERED: HABIT21 TOP (14:01)
[2016-11-22] MEDS ORDERED: VANCOCIN PO/LIQ (14:03)
[2016-11-22] MEDS ORDERED: T PO (14:04)
[2017-02-06] MEDS ORDERED: DEPAKOT500 PO (22:17)
[2017-02-06] MEDS ORDERED: KLONO2 PO (22:19)
[2017-02-06] MEDS ORDERED: PERCOCET 10/3251 TAB PO (22:19)
[2017-02-06] MEDS ORDERED: MARI5 PO (22:19)
[2017-02-06] MEDS ORDERED: ZANTAC 150 PO (22:20)
[2017-02-06] MEDS ORDERED: T PO (22:20)
[2017-02-07] MEDS ORDERED: NEUR300 PO (11:08)
== END 2016-10-09 10:47 | disposition home or self-care (01) ==
LOC: SDC 08:04
PROVIDERS: Anesthesiology; Pathology Cytopathology
DX: C92.Z0 Other myeloid leukemia not having achieved remission (principal); Z88.1 Allergy status to other antibiotic agents; F17.210 Nicotine dependence, cigarettes, uncomplicated; F43.10 Post-traumatic stress disorder, unspecified
CPT/HCPCS: 80048; 85025; 85045; 88305; 88311; 88313; 88341; 88342; 88360; J2405; J3010

== ENCOUNTER 2016-10-22 17:12 | Inpatient (IN) | payer OTHER ==
--- NOTE | ~2016-10-22 | DS ---
Discharge Summary [facility] [address] [facility] [place]. [address] NAME: RENETTA MANUEL : 71 STATUS : DIS IN PAT#: [id number] AGE: 41 ADM/REG DATE : 10/22/16 MR#: [id number] REPORT SERV DATE: 11/09/16 DICTATED BY: ROSY BULLOCK MARK SANDERS DATE: 11/08/16 REPORT STATUS : Draft TRANSCRIBED BY: RYAN DATE: 11/08/16 Data Collection from hospitalization DISCHARGE DIAGNOSIS(ES): 1. Acute myeloblastic leukemia. 2. Cytopenia. 3. Pain. 4. Anemia. 5. Anxiety. 6. Nicotine abuse. CONSULTATIONS: None. PROCEDURES PERFORMED: None. MEDICATIONS: Zyrtec 10 mg daily as needed, Klonopin as instructed, Depakote 500 mg twice a day, Marinol 2.5 mg before breakfast and supper, Neurontin 600 mg twice a day, Cortisporin one drop four times a day, Habitrol 21 mg topically daily, Zofran 8-16 mg three times a day as needed, Percocet 10/325 one tablet every four hours as needed, and Zantac 150 mg twice a day as needed. CONDITION AT DISCHARGE: Stable. DISPOSITION: The patient was discharged home on a regular diet with activities as instructed. She would follow up with me as scheduled. HOSPITAL COURSE: This is a 41-year-old female who has acute myeloblastic leukemia. She had had a repeat bone marrow biopsy that showed mild to moderate hypocellular bone marrow with trilineage hematopoiesis and 5% leukemic blasts. It was felt that she would need to be admitted for her IV chemotherapy treatment. She was admitted to the hospital at this time for further evaluation and treatment. Upon admission, a PICC line was inserted. Chemotherapy treatment had begun. On the , she complained of some body aches and mild nausea. She also complained of headache. Her lungs were clear bilaterally. Oxycodone was being given for pain. She was also receiving morphine. She seemed to be in good spirits. Klonopin was added for anxiety. Nicotine patch was in place. On the , she continued to complain of headaches. She was requesting Dilaudid. White count was 1.3. She had no transfusion needs at this time. She does have a history of substance abuse. She was going to be changed to Dilaudid no more frequently than every six hours. On 10/26/2016, she had no complaints at this time. She seemed to be doing well. Her current pain regimen continued. Over the next couple of days, her chemotherapy treatment continued. Discharge planning was performed. On 10/28/2016, discharge instructions were given. Due to her improved and stable condition, she was discharged home with the above- stated instructions. Information collected by: Rosalva Koenig Discharge Summary [address] [place]. [address] NAME: RENETTA MANUEL : 71 STATUS : DIS IN PAT#: [id number] AGE: 41 ADM/REG DATE : 10/22/16 MR#: [id number] REPORT SERV DATE: 11/09/16 DICTATED BY: ROSY BULLOCK MARK SANDERS DATE: 11/08/16 REPORT STATUS : Draft TRANSCRIBED BY: RYAN DATE: 11/08/16 I submit the above information as my discharge summary. ROLANDA/RYAN Emiliano Bullock IV, M.D. / [id number] CC: Emiliano Bullock IV, M.D.
[2016-10-22 18:17] LABS: BASOPHILS 0 %; EOSINOPHILS 1.1 %; EOSINOPHILS ABSOLUTE 0.03 10/3/uL (0.0-0.53); HEMATOCRIT 36.7 % (36.0-48.0); HEMOGLOBIN 12.1 g/dL (12.0-16.0); IMMATURE GRANULOCYTES 0.4 %; IMMATURE GRANULOCYTES ABSOLUTE 0.01 10/3/uL (0.0-0.11); LYMPHOCYTES 26.6 %; LYMPHOCYTES ABSOLUTE 0.71 10/3/uL (0.67-4.30); MEAN CORPUSCULAR HEMOGLOB 31.6 pg (26.0-34.0); MEAN CORPUSCULAR VOLUME 95.8 fL (80-100); MEAN PLATELET VOLUME 9.3 fL (9.2-13.0); MONOCYTES 4.9 %; MONOCYTES ABSOLUTE 0.13 10/3/uL (0.21-1.20); NEUTROPHILS ABSOLUTE 1.79 10/3/uL (2.02-8.40); PLATELET COUNT 68 10/3/uL (150-400); RBC DISTRIBUTION WIDTH 13.8 % (12.0-16.0); RED CELL COUNT 3.83 10/6/uL (4.0-5.6); WHITE BLOOD CELLS 2.7 10/3/uL (4.5-10.5)
[2016-10-22 18:20] LABS: MANUAL DIFF NO %
[2016-10-22 18:35] LABS: ALBUMIN 3.8 G/DL (3.5-5.0); ALKALINE PHOSPHATASE 99 U/L (45-117); BUN (BLOOD UREA NITROGEN) 12 MG/DL (6-23); CALCIUM, SERUM 9.3 MG/DL (8.5-10.4); CHLORIDE, SERUM 108 MMOL/L (96-112); CO2 (CARBON DIOXIDE) 26 MMOL/L (24-34); CREATININE 0.81 MG/DL (0.55-1.02); GFR AFRICAN AMERICAN 103 ML/MIN (>=60); GFR NON AFRICAN AMERICAN 89 ML/MIN (>=60); GLUCOSE, SERUM 103 MG/DL (60-99); POTASSIUM, SERUM 3.8 MMOL/L (3.5-5.3); SGOT(AST) 12 U/L (5-40); SGPT(ALT) 20 U/L (5-65); SODIUM, SERUM 141 MMOL/L (135-148); TOTAL BILIRUBIN 0.3 MG/DL (0-1.2); TOTAL PROTEIN 7.8 G/DL (6.0-8.5)
[2016-10-22 19:01] LABS: PLATELET ESTIMATE DEC (ADEQUATE); RBC MORPHOLOGY NORM (NORMAL)
[2016-10-22] MEDS ORDERED: DEPAKOT500 PO (21:49)
[2016-10-22] MEDS ORDERED: PERCOCET 10/3251 TAB PO (21:50)
[2016-10-22] MEDS ORDERED: ZANTAC 150 PO (21:51)
[2016-10-22] MEDS ORDERED: ZOFRAN8 PO (21:51)
[2016-10-22] MEDS ORDERED: ZYRTEC ALLGY10 MG PO (21:51)
[2016-10-23 05:23] LABS: BASOPHILS 0 %; EOSINOPHILS ABSOLUTE 0.09 10/3/uL (0.0-0.53); HEMATOCRIT 35.7 % (36.0-48.0); HEMOGLOBIN 11.8 g/dL (12.0-16.0); IMMATURE GRANULOCYTES 0.4 %; IMMATURE GRANULOCYTES ABSOLUTE 0.01 10/3/uL (0.0-0.11); LYMPHOCYTES 36.7 %; LYMPHOCYTES ABSOLUTE 0.83 10/3/uL (0.67-4.30); MEAN CORPUS HGB CONC 33.1 g/dL (32.0-36.0); MEAN CORPUSCULAR HEMOGLOB 31.9 pg (26.0-34.0); MEAN CORPUSCULAR VOLUME 96.5 fL (80-100); MEAN PLATELET VOLUME 9.4 fL (9.2-13.0); MONOCYTES 5.3 %; MONOCYTES ABSOLUTE 0.12 10/3/uL (0.21-1.20); NEUTROPHILS 53.6 %; NEUTROPHILS ABSOLUTE 1.21 10/3/uL (2.02-8.40); PLATELET COUNT 61 10/3/uL (150-400); RBC DISTRIBUTION WIDTH 13.6 % (12.0-16.0)
[2016-10-23 05:25] LABS: WHITE BLOOD CELLS 2.3 10/3/uL (4.5-10.5)
[2016-10-23 05:26] LABS: MANUAL DIFF NO %
[2016-10-23 05:35] LABS: BUN (BLOOD UREA NITROGEN) 14 MG/DL (6-23); CALCIUM, SERUM 9.4 MG/DL (8.5-10.4); CHLORIDE, SERUM 109 MMOL/L (96-112); CO2 (CARBON DIOXIDE) 25 MMOL/L (24-34); CREATININE 0.67 MG/DL (0.55-1.02); GFR AFRICAN AMERICAN 125 ML/MIN (>=60); GFR NON AFRICAN AMERICAN 108 ML/MIN (>=60); GLUCOSE, SERUM 90 MG/DL (60-99); POTASSIUM, SERUM 3.8 MMOL/L (3.5-5.3); SODIUM, SERUM 141 MMOL/L (135-148)
[2016-10-23 06:34] LABS: BAND NEUTROPHILS 5 %; EOSINOPHILS 5 %; EOSINOPHILS ABSOLUTE (CALC) 0.12 10/3/uL (0.0-0.53); LYMPHOCYTES 35 %; LYMPHOCYTES ABSOLUTE (CALC) 0.81 10/3/uL (0.67-4.30); MONOCYTES 8 %; MONOCYTES ABSOLUTE (CALC) 0.18 10/3/uL (0.21-1.20); PLATELET ESTIMATE DEC (ADEQUATE); RBC MORPHOLOGY NORM (NORMAL); SEGMENTED NEUTROPHIL (0) 47 %; TOTAL NUCLEATED CELLS 100
[2016-10-24 08:00] LABS: BASOPHILS 0 %; EOSINOPHILS 0.9 %; EOSINOPHILS ABSOLUTE 0.02 10/3/uL (0.0-0.53); HEMATOCRIT 32.6 % (36.0-48.0); HEMOGLOBIN 10.8 g/dL (12.0-16.0); LYMPHOCYTES 27.7 %; LYMPHOCYTES ABSOLUTE 0.65 10/3/uL (0.67-4.30); MEAN CORPUS HGB CONC 33.1 g/dL (32.0-36.0); MEAN CORPUSCULAR HEMOGLOB 31.5 pg (26.0-34.0); MONOCYTES 4.3 %; NEUTROPHILS 67.1 %; NEUTROPHILS ABSOLUTE 1.58 10/3/uL (2.02-8.40); PLATELET COUNT 54 10/3/uL (150-400); RBC DISTRIBUTION WIDTH 13.5 % (12.0-16.0); RED CELL COUNT 3.43 10/6/uL (4.0-5.6); WHITE BLOOD CELLS 2.4 10/3/uL (4.5-10.5)
[2016-10-24 08:01] LABS: MANUAL DIFF NO %
[2016-10-24 08:11] LABS: BUN (BLOOD UREA NITROGEN) 12 MG/DL (6-23); CALCIUM, SERUM 9.1 MG/DL (8.5-10.4); CHLORIDE, SERUM 111 MMOL/L (96-112); CO2 (CARBON DIOXIDE) 23 MMOL/L (24-34); CREATININE 0.57 MG/DL (0.55-1.02); GFR AFRICAN AMERICAN 132 ML/MIN (>=60); GFR NON AFRICAN AMERICAN 114 ML/MIN (>=60); GLUCOSE, SERUM 86 MG/DL (60-99); SODIUM, SERUM 143 MMOL/L (135-148)
[2016-10-25 07:20] LABS: HEMATOCRIT 30.1 % (36.0-48.0); HEMOGLOBIN 9.9 g/dL (12.0-16.0); MEAN CORPUS HGB CONC 32.9 g/dL (32.0-36.0); MEAN CORPUSCULAR HEMOGLOB 31.6 pg (26.0-34.0); MEAN CORPUSCULAR VOLUME 96.2 fL (80-100); MEAN PLATELET VOLUME 9.3 fL (9.2-13.0); RBC DISTRIBUTION WIDTH 13.4 % (12.0-16.0); RED CELL COUNT 3.13 10/6/uL (4.0-5.6)
[2016-10-25 07:26] LABS: BUN (BLOOD UREA NITROGEN) 14 MG/DL (6-23); CALCIUM, SERUM 8.3 MG/DL (8.5-10.4); CHLORIDE, SERUM 110 MMOL/L (96-112); CO2 (CARBON DIOXIDE) 24 MMOL/L (24-34); CREATININE 0.64 MG/DL (0.55-1.02); GFR AFRICAN AMERICAN 127 ML/MIN (>=60); GFR NON AFRICAN AMERICAN 109 ML/MIN (>=60); GLUCOSE, SERUM 91 MG/DL (60-99); MANUAL DIFF YES %; PLATELET COUNT 42 10/3/uL (150-400); POTASSIUM, SERUM 3.9 MMOL/L (3.5-5.3); SODIUM, SERUM 142 MMOL/L (135-148); WHITE BLOOD CELLS 1.3 10/3/uL (4.5-10.5)
[2016-10-25 07:56] LABS: EOSINOPHILS 2 %; EOSINOPHILS ABSOLUTE (CALC) 0.03 10/3/uL (0.0-0.53); LYMPHOCYTES 16 %; LYMPHOCYTES ABSOLUTE (CALC) 0.21 10/3/uL (0.67-4.30); NEUTROPHILS ABSOLUTE (CALC) 1.07 10/3/uL (2.02-8.40); RBC MORPHOLOGY NORM (NORMAL); SEGMENTED NEUTROPHIL (0) 82 %; TOTAL NUCLEATED CELLS 50
[2016-10-26 09:56] LABS: HEMATOCRIT 29.7 % (36.0-48.0); MEAN CORPUS HGB CONC 33.7 g/dL (32.0-36.0); MEAN CORPUSCULAR HEMOGLOB 31.8 pg (26.0-34.0); MEAN CORPUSCULAR VOLUME 94.6 fL (80-100); RBC DISTRIBUTION WIDTH 13.1 % (12.0-16.0); RED CELL COUNT 3.14 10/6/uL (4.0-5.6)
[2016-10-26 09:59] LABS: MANUAL DIFF YES %; PLATELET COUNT 40 10/3/uL (150-400); WHITE BLOOD CELLS 1.8 10/3/uL (4.5-10.5)
[2016-10-26 10:07] LABS: BUN (BLOOD UREA NITROGEN) 15 MG/DL (6-23); CALCIUM, SERUM 8.8 MG/DL (8.5-10.4); CHLORIDE, SERUM 110 MMOL/L (96-112); CO2 (CARBON DIOXIDE) 25 MMOL/L (24-34); CREATININE 0.58 MG/DL (0.55-1.02); GFR AFRICAN AMERICAN 131 ML/MIN (>=60); GFR NON AFRICAN AMERICAN 113 ML/MIN (>=60); GLUCOSE, SERUM 89 MG/DL (60-99); POTASSIUM, SERUM 3.9 MMOL/L (3.5-5.3); SODIUM, SERUM 140 MMOL/L (135-148)
[2016-10-26 10:24] LABS: BAND NEUTROPHILS 10 %; LYMPHOCYTES 13 %; LYMPHOCYTES ABSOLUTE (CALC) 0.23 10/3/uL (0.67-4.30); MONOCYTES 1 %; MONOCYTES ABSOLUTE (CALC) 0.02 10/3/uL (0.21-1.20); NEUTROPHILS ABSOLUTE (CALC) 1.55 10/3/uL (2.02-8.40); RBC MORPHOLOGY NORM (NORMAL); SEGMENTED NEUTROPHIL (0) 76 %; TOTAL NUCLEATED CELLS 100
[2016-10-27 05:19] LABS: HEMOGLOBIN 10.2 g/dL (12.0-16.0); MEAN CORPUS HGB CONC 32.9 g/dL (32.0-36.0); MEAN CORPUSCULAR HEMOGLOB 31.9 pg (26.0-34.0); MEAN CORPUSCULAR VOLUME 96.9 fL (80-100); RBC DISTRIBUTION WIDTH 12.9 % (12.0-16.0)
[2016-10-27 05:24] LABS: PLATELET COUNT 40 10/3/uL (150-400); WHITE BLOOD CELLS 1.2 10/3/uL (4.5-10.5)
[2016-10-27 05:25] LABS: MANUAL DIFF YES %
[2016-10-27 05:37] LABS: BUN (BLOOD UREA NITROGEN) 17 MG/DL (6-23); CALCIUM, SERUM 8.5 MG/DL (8.5-10.4); CHLORIDE, SERUM 109 MMOL/L (96-112); CO2 (CARBON DIOXIDE) 26 MMOL/L (24-34); GFR AFRICAN AMERICAN 123 ML/MIN (>=60); GFR NON AFRICAN AMERICAN 106 ML/MIN (>=60); GLUCOSE, SERUM 91 MG/DL (60-99); POTASSIUM, SERUM 4.1 MMOL/L (3.5-5.3); SODIUM, SERUM 142 MMOL/L (135-148)
[2016-10-27 05:58] LABS: BAND NEUTROPHILS 12 %; EOSINOPHILS 4 %; EOSINOPHILS ABSOLUTE (CALC) 0.05 10/3/uL (0.0-0.53); LYMPHOCYTES 8 %; NEUTROPHILS ABSOLUTE (CALC) 1.06 10/3/uL (2.02-8.40); SEGMENTED NEUTROPHIL (0) 76 %; TOTAL NUCLEATED CELLS 25
[2016-10-27 05:59] LABS: RBC MORPHOLOGY NORM (NORMAL)
[2016-10-27] MEDS ORDERED: HABIT21 TOP (10:58)
[2016-10-27] MEDS ORDERED: PERCOCET 10/3251 TAB PO (10:59)
[2016-10-27] MEDS ORDERED: MARI2.5 PO (10:59)
[2016-10-27] MEDS ORDERED: NEUR600 PO (11:00)
[2016-10-27] MEDS ORDERED: CORTISPORIN OPH (11:00)
[2016-10-28 05:02] LABS: HEMOGLOBIN 9.1 g/dL (12.0-16.0); MEAN CORPUS HGB CONC 33.8 g/dL (32.0-36.0); MEAN CORPUSCULAR HEMOGLOB 31.6 pg (26.0-34.0); MEAN PLATELET VOLUME 9.4 fL (9.2-13.0); RBC DISTRIBUTION WIDTH 12.8 % (12.0-16.0); RED CELL COUNT 2.88 10/6/uL (4.0-5.6)
[2016-10-28 05:07] LABS: HEMATOCRIT 26.9 % (36.0-48.0); MANUAL DIFF YES %; MEAN CORPUSCULAR VOLUME 93.4 fL (80-100); PLATELET COUNT 34 10/3/uL (150-400); WHITE BLOOD CELLS 1.8 10/3/uL (4.5-10.5)
[2016-10-28 05:12] LABS: BUN (BLOOD UREA NITROGEN) 16 MG/DL (6-23); CALCIUM, SERUM 9.1 MG/DL (8.5-10.4); CHLORIDE, SERUM 108 MMOL/L (96-112); CO2 (CARBON DIOXIDE) 26 MMOL/L (24-34); CREATININE 0.58 MG/DL (0.55-1.02); GFR AFRICAN AMERICAN 131 ML/MIN (>=60); GFR NON AFRICAN AMERICAN 113 ML/MIN (>=60); SODIUM, SERUM 140 MMOL/L (135-148)
[2016-10-28 05:13] LABS: GLUCOSE, SERUM 118 MG/DL (60-99)
[2016-10-28 07:18] LABS: BAND NEUTROPHILS 11 %; HYPOCHROMIA 1+ (3-10/OIF) (0-2/OIF); LYMPHOCYTES 1 %; LYMPHOCYTES ABSOLUTE (CALC) 0.02 10/3/uL (0.67-4.30); NEUTROPHILS ABSOLUTE (CALC) 1.78 10/3/uL (2.02-8.40); SEGMENTED NEUTROPHIL (0) 88 %; TOTAL NUCLEATED CELLS 100
[2016-10-28] MEDS ORDERED: KLONO2 PO (07:36)
[2016-11-22] MEDS ORDERED: PERCOCET 10/3251 TAB PO (13:53)
[2016-11-22] MEDS ORDERED: CEFAZ1 IM (14:01)
[2016-11-22] MEDS ORDERED: HABIT21 TOP (14:01)
[2016-11-22] MEDS ORDERED: VANCOCIN PO/LIQ (14:03)
[2016-11-22] MEDS ORDERED: T PO (14:04)
[2017-02-06] MEDS ORDERED: DEPAKOT500 PO (22:17)
[2017-02-06] MEDS ORDERED: KLONO2 PO (22:19)
[2017-02-06] MEDS ORDERED: PERCOCET 10/3251 TAB PO (22:19)
[2017-02-06] MEDS ORDERED: MARI5 PO (22:19)
[2017-02-06] MEDS ORDERED: T PO (22:20)
[2017-02-06] MEDS ORDERED: ZANTAC 150 PO (22:20)
[2017-02-07] MEDS ORDERED: NEUR300 PO (11:08)
== END 2016-10-28 13:15 | disposition home or self-care (01) | DRG 839 ==
LOC: 4EA 17:12
PROVIDERS: Internal Medicine Hematology & Oncology
PROC: 3E03305 Introduction of Other Antineoplastic into Peripheral Vein, Percutaneous Approach (ICD-10-PCS; principal; 2016-10-23)
PROC: 02HV33Z Insertion of Infusion Device into Superior Vena Cava, Percutaneous Approach (ICD-10-PCS; 2016-10-23)
PROC: 4A02X4A Measurement of Cardiac Electrical Activity, Guidance, External Approach (ICD-10-PCS; 2016-10-23)
DX: Z51.11 Encounter for antineoplastic chemotherapy (principal); C92.01 Acute myeloblastic leukemia, in remission; F17.210 Nicotine dependence, cigarettes, uncomplicated; F41.9 Anxiety disorder, unspecified
CPT/HCPCS: 36569; 80048; 80053; 85025; A9270-GY; C1751; J1170; J2405; J9100